=== PATIENT | male | born 1940 | race Caucasian/White ===

== ENCOUNTER → 2016-03-26 | Outpatient (CLI) | payer MEDICARE, OTHER ==
[~2016-03-26] MED LIST: ALLP300T PO; ASP81TEC; ASPI-983 PO; CALC-250 PO; CLOP75TA; COLE3.75 PO; CYCL10TA9 PO; DEXL60CA PO; FAMO20TA42; HYDR-229 PO; HYDR-3720 PO; KRIL500C PO; LISI20TA; LOPE2CAP PO; MTP25TSR; MULT-1030 PO; NITR0.4T SL; OMEP20CA12 PO; PNT40TEC; PNT40TEC PO; PRAV40TA; PROP10DR3 OU; ROSU5TAB PO; TAMS0.4C98 PO; VITAMIN D PO
--- NOTE | 2016-03-27 11:21 | ECHOCARDIOGRAPHY REPORT ---
PROCEDURE PHYSICIAN: EVANGELIST AMAYA DATE OF PROCEDURE: 03/26/2016 TWO DIMENSIONAL ECHOCARDIOGRAM REPORT PRIMARY PHYSICIAN: OTHER PHYSICIAN: REFERRING PHYSICIAN: Dr. Giron ORDERING PHYSICIAN: INDICATION FOR THE PROCEDURE: Coronary artery disease, chest pain. MEASUREMENTS DERIVED VALUES LV DIAMETER (LAX) NORMALS NORMALS Diastolic 4.5 (3.6-5.2) Eject. Fract. 60% (60%+/-6%) Systolic (2.3-3.9) Diastolic Vol. % Shortening (0.22-0.42) Systolic Vol. Aortic Root IVS THICKNESS Diastolic 0.8 (0.6-1.1) LVPW THICKNESS Diastolic 1. (0.6-1.1) LA DIAMETER Systolic 4.5 (2.1-3.7) FINDINGS: 1. Technical quality is good. 2. The left ventricle is normal in size with normal systolic function. Estimated ejection fraction 60%. 3. The left atrium is dilated. No clot or thrombus were seen within the left atrium. 4. The right atrium and right ventricle are normal in size. No clot or thrombus were seen within the right side. 5. Mitral valve is normal in morphology with mild mitral regurgitation noted by color Doppler flow. No mitral valve prolapse. No mitral valve stenosis. 6. Aortic valve is trileaflet with normal opening and closing pattern. No significant aortic stenosis or regurgitation was seen. 7. Tricuspid valve is normal in morphology with mild tricuspid regurgitation noted by color Doppler flow. Doppler across tricuspid valve estimated pulmonary artery pressure of 24+ right atrial pressure. 8. Pulmonic valve is functioning normally. 9. No pericardial effusion. CONCLUSION: 1. Normal left ventricular size and systolic function. Estimated ejection fraction 60%. 2. Left atrial dilatation. 3. Mild mitral and tricuspid regurgitation. 4. Estimated pulmonary artery pressure of 30 mmHg. Job ID: [id number] Dictated Date: 03/27/2016 10:36:51 [place] Date: 03/27/2016 11:16:56 / [facility]
== END ==
LOC: CARD 09:57
PROVIDERS: ATTEND Physician Assistant
DX: I25.10 Atherosclerotic heart disease of native coronary artery without angina pectoris (principal); R07.89 Other chest pain; I10 Essential (primary) hypertension; R06.02 Shortness of breath
CPT/HCPCS: 93306

== ENCOUNTER → 2016-04-08 | Outpatient (CLI) | payer MEDICARE, OTHER ==
[~2016-04-08] MED LIST changes: +CATHETER FLUSH 10 ML SYR IV PRN; +REGADENOSON 0.4 MG/5 ML SYR (LEXISCAN) IV ONE
[2016-04-08 09:02] VITALS: BP 138/74
[2016-04-08 09:07] VITALS: BP 158/83
[2016-04-08 10:45] LABS: ALBUMIN 4.1 G/DL (3.2-4.5); BILIRUBIN,TOTAL 0.5 MG/DL (0.1-1.0); CALCIUM 9.1 MG/DL (8.5-10.1); CREATININE SERUM 1.23 MG/DL (0.60-1.30); POTASSIUM 3.7 MMOL/L (3.6-5.0); TOTAL PROTEIN 6.5 G/DL (6.4-8.2)
--- NOTE | 2016-04-08 11:38 | STRESS TEST ---
PROCEDURE PHYSICIAN: EVANGELIST AMAYA LEXISCAN MYOVIEW STRESS TEST REPORT DATE OF PROCEDURE: 04/08/2016 REFERRING PHYSICIAN: Dr. Adam Giron. INDICATION FOR THE PROCEDURE: Coronary artery disease, chest pain. Baseline heart rate is 71, baseline blood pressure: 138/74. Baseline EKG: Sinus rhythm with no ischemic changes. SUMMARY: The patient was injected with 10.94 mCi of technetium 99 Myoview and the resting images were obtained. Then the patient received 0.4 mg of Lexiscan followed by 29.9 mCi of technetium 99 Myoview. Throughout the test, there were no EKG changes. The resting and stress images were reviewed and compared in the short axis, horizontal long axis, and vertical long axis views. Review of the images showed diaphragmatic attenuation affecting the quality of the images. There is decreased uptake at the mid to apical inferolateral wall, with mild reversibility. SSS is 4, SDS 2, TID value 1.24. On the gated images, the left ventricle appeared to be normal size with normal contractility. Calculated ejection fraction 64%. CONCLUSION: 1. The patient tolerated Lexiscan well. 2. Diaphragmatic attenuation with typical male pattern. Questionable mild ischemia at the inferolateral wall. 3. Transient ischemic dilatation with TID value 1.24. 4. Normal left ventricular size with normal contractility. Calculated ejection fraction 64%. Job ID: [id number] Dictated Date: 04/08/2016 11:04:29 [place] Date: 04/08/2016 11:33:24 / moses
== END ==
LOC: CARD 07:32
PROVIDERS: ATTEND Physician Assistant
DX: I25.10 Atherosclerotic heart disease of native coronary artery without angina pectoris (principal); R07.89 Other chest pain; I10 Essential (primary) hypertension; R06.02 Shortness of breath
CPT/HCPCS: 36415; 78452; 80053; 80061; 93017

== ENCOUNTER 2016-04-17 10:56 | Day surgery (SDC) | payer MEDICARE, OTHER ==
[~2016-04-17] VITALS: Ht 165.1 cm; Wt 103.4 kg
[2016-04-17] VITALS (7 sets, daily range): BP systolic 112–151; BP diastolic 68–92
[~2016-04-17 10:56] MED LIST changes: -ASPI-983 PO; -CATHETER FLUSH 10 ML SYR IV PRN; -DEXL60CA PO; -MULT-1030 PO; -NITR0.4T SL; -PROP10DR3 OU; -REGADENOSON 0.4 MG/5 ML SYR (LEXISCAN) IV ONE; -TAMS0.4C98 PO; -VITAMIN D PO
[2016-04-17] MEDS ORDERED: HEParin (CATH LAB) 2,000 ML IV ONE (11:25)
[2016-04-17] MEDS ORDERED: LIDOCAINE 1% INJ 20 ML (XYLOCAINE) VIAL ONE (11:25)
[2016-04-17] MEDS ORDERED: NS IV 1000 ML 1,000 ML ONE (11:25)
[2016-04-17] MEDS ORDERED: NS IV 1000 ML 1,000 ML IV SCH ×2 (11:33→16:46)
[2016-04-17 11:59] LABS: MEAN PLATELET VOLUME 9.2 FL (7.4-10.4); RED BLOOD COUNT 4.44 10^6/uL (4.35-5.85); RED CELL DISTRIBUTION WIDTH 13.5 % (10.0-14.5); WHITE BLOOD COUNT 9.4 10^3/uL (4.3-11.0)
[2016-04-17 12:09] LABS: PROTHROMBIN TIME PATIENT 13.3 SEC (12.2-14.7)
[2016-04-17 12:20] LABS: ALBUMIN 4.6 G/DL (3.2-4.5); BILIRUBIN,TOTAL 0.7 MG/DL (0.1-1.0); CALCIUM 9.3 MG/DL (8.5-10.1); CREATININE SERUM 1.19 MG/DL (0.60-1.30); POTASSIUM 4.2 MMOL/L (3.6-5.0); TOTAL PROTEIN 7.1 G/DL (6.4-8.2)
--- NOTE | 2016-04-17 12:37 | Diagnostic Imaging Report ---
Portable upright radiograph of the chest. INDICATION: Hypertension. Abnormal stress test. Shortness of breath. FINDINGS: There is minimal scarring in the left lung base similar to 02/10/16 exam. The right lung is clear. The heart size is normal. No effusion or pneumothorax. The mediastinum and jess appear unremarkable. IMPRESSION: No acute process. Dictated by: Dictated on workstation # [id number]
[2016-04-17] MEDS ORDERED: VITAMIN D PO (12:47)
[2016-04-17] MEDS ORDERED: DEXL60CA PO (12:47)
[2016-04-17] MEDS ORDERED: NITR0.4T SL (12:47)
[2016-04-17] MEDS ORDERED: PROP10DR3 OU (12:47)
[2016-04-17] MEDS ORDERED: ASPI-983 PO (12:47)
[2016-04-17] MEDS ORDERED: MULT-1030 PO (12:47)
[2016-04-17 14:13] LABS: BILIRUBIN,URINE NEGATIVE (NEGATIVE); KETONES,URINE NEGATIVE (NEGATIVE); LEUKOCYTE ESTERASE ,URINE NEGATIVE (NEGATIVE); NITRITE,URINE NEGATIVE (NEGATIVE); PH,URINE 6 (5-9); PROTEIN,URINE NEGATIVE (NEGATIVE); UROBILINOGEN,URINE NORMAL (NORMAL)
[2016-04-17 14:23] LABS: SQUAMOUS EPITHELIAL CELL,UR RARE /HPF
[2016-04-17] MEDS ORDERED: MIDAZOLAM 5 MG/5 ML (VERSED) VIAL ONE (16:05)
[2016-04-17] MEDS ORDERED: diphenhydrAMINE 50 MG/ML INJ (BENADRYL) ONE (16:05)
[2016-04-17] MEDS ORDERED: fentaNYL INJECTION 100 MCG/2 ML AMP ONE (16:05)
[2016-04-17] MEDS ORDERED: methylPREDNISolone 125 MG (Solu-MEDROL) VIAL ONE (16:06)
[2016-04-17] MEDS ORDERED: ENALAPRILAT 2.5 MG/2 ML (VASOTEC) VIAL IV ONE (16:33)
[2016-04-17] MEDS ORDERED: meTOprolol 5 MG/5 ML (LOPRESSOR) VIAL ONE (16:33)
--- NOTE | 2016-04-17 16:44 | Cardiac Procedure Note-CS/ASA ---
Pre-Procedure Note Pre-Op Procedure Note H&P Reviewed The H&P was reviewed, patient examined and no changes noted. Date H&P Reviewed: Apr 17, 2016 Time H&P Reviewed: 16:43 Conscious Sedation Pre-Proced Time Reviewed: 16:43 ASA Class: 3 Airway Mallampati Classification: ([place] appropriate class) I. II. III, IV Lungs Heart ASA score ASA 1: a normal healthy patient ASA 2: a patient with a mild systemic disease (mid diabetes, controlled hypertension, obesity x ASA 3: a patient with a severe systemic disease that limits activity (angina , COPD, prior Myocardial infarction) ASA 4: a patient with an incapacitating disease that is a constant threat to life (CHF, renal failure) ASA 5: a moribund patient not expected to survive 24 hrs. (ruptured aneurysm) ASA 6: a declared brain patient whose organs are being harvested. For emergent operations, add the letter E after the classification Grade 3 Sedation Plan: Analgesia, Amnesia, Plan communicated to team members, Discussed options with patient/fam, Discussed risks with patient/fam Note The patient is an appropriate candidate to undergo the planned procedure, sedation, and anesthesia. The patient immediately re-assessed prior to indication. EVANGELIST AMAYA MD Apr 17, 2016 16:44
--- NOTE | 2016-04-17 16:50 | Discharge Inst-Post CATH ---
Discharge Inst-CATH Post Cardiac Cath D/C Inst Follow Up/Plan Appointment with Dr Ovalle's office in 2-4 weeks CARDIAC CATH DISCHARGE INSTRUCTIONS *Hold Metformin for 48 hours post heart cath. ACTIVITY * Go Home directly and rest. * Limit activity of the leg (or wrist if it was used) for 7 days including aerobics, swimming, jogging, bicycling, etc. * Restrict stair-climbing for 7 days if possible, if not, climb up with your non -cath leg, then bring together on the same step. * Avoid lifting, pushing, pulling or excessive movement of the affected extremity for 7 days. * Customary sexual activity may be resumed after 2 days-use caution not to use a position that strains or causes pain to the affected extremity. * No driving for 24 hours. * NO SMOKING. * Avoid straining for bowel movements for 7 days. * Gentle walking on level ground is allowed. * Returning to work will depend on the type of procedure and the results. Your doctor will discuss this with you. CALL YOUR DOCTOR FOR ANY OF THE FOLLOWING: *If bleeding from the puncture site occurs- Apply gentle pressure to site with clean cloth and call your doctor or EMS. * If a knot or lump forms under the skin, increases in size, or causes pain. * If bruising appears to be worsening or moving further down your leg instead of disappearing. * Temperature above 101 F. CARE OF YOUR GROIN INCISION; * Bruising or purple discoloration of the skin near the puncture site is common. * You may shower only, no bathtub bathing for 5 days. Be careful to avoid slipping as your leg may feel stiff. * If a closure device was used on your femoral artery, please see the attached guide regarding care of the device and your leg. * REMOVE the dressing from your groin the next day after your procedure in the shower. CARE OF YOUR WRIST INCISION; * Bruising or purple discoloration of the skin near the puncture site is common. * You may shower. * DO NOT submerge wrist. * Remove dressing in 24 hours. EVANGELIST OVALLE MD Apr 17, 2016 16:50
[2016-04-17] MEDS ORDERED: PATIENT MAY USE OWN MEDS, ALL PO SCH (17:00)
--- NOTE | 2016-04-18 13:46 | DISCHARGE SUMMARY ---
PROCEDURE PHYSICIAN: EVANGELIST AMAYA DATE OF PROCEDURE: 04/17/2016 REFERRING PHYSICIAN: Dr. Giron BRIEF HISTORY: Mr. Antoine is a 76-year-old gentleman with extensive cardiac history multiple interventions in the past. He had an abnormal stress test, scheduled for cardiac catheterization. PROCEDURE NOTE: After explaining the procedure to the patient, all pros and cons were explained. All questions were answered. The patient signed a consent, then he was placed on the cardiac catheterization laboratory. The right groin was prepped in a sterile fashion. Local anesthesia applied to right groin. 6-Maltese sheath was placed in the right femoral artery. A combination of right and left Mychal catheter were used to access the right and left coronary system. Multiple views were obtained. Pigtail catheter advanced to the left ventricular cavity. Left ventriculogram was done. Pullback LV to aorta was done. The aortic arch angiogram was done. At the end of the procedure, sheath was removed. Mynx device deployed. Hemostasis achieved. The patient required 5 mg of IV Lopressor and 5 mg IV enalapril to control his blood pressure. FINDINGS: HEMODYNAMICS: LV pressure 162/19, end-diastolic pressure of 19, aortic pressure 147/72, mean of 104. ANATOMY: 1. Left main coronary artery is bifurcating to left anterior descending and left circumflex artery with no obstructive disease. 2. Left anterior descending artery has multiple stents at the proximal mid and distal portion, 40 to 50% stenosis distally, nonobstructive disease. 3. Left circumflex artery is moderate in size. Second obtuse marginal branch has 50% stenosis. 4. Ramus intermedius/high obtuse marginal branch has patent stent proximally. 5. Right coronary artery is moderate in size with patent stent with mild disease distally, nonobstructive disease. 6. Left ventriculogram was done in the right anterior oblique position. The left ventricle is normal in size with normal contractility. Systolic function appeared to be normal. Estimated ejection fraction 60%. CONCLUSION: 1. Patent stents in the LAD, proximal mid and distal, proximal ramus intermedius/high obtuse marginal branch and right coronary artery with mild disease distally, nonobstructive disease. 2. 50% stenosis at the second obtuse marginal branch, nonobstructive disease. 3. Normal left ventricular size and systolic function. Estimated ejection fraction 60%. 4. Aortic arch angiogram showed mild hypertensive changes. Origin of the right innominate artery is normal, followed by a left subclavian artery and on the most lateral portion is a left carotid artery which is not causing any obstructive disease. DISCUSSION AND RECOMMENDATION: Medical therapy is recommended. No intervention is needed. FINAL DIAGNOSIS: 1. Coronary artery disease. 2. Hypertension. 3. Hyperlipidemia. 4. Chest pain, nonspecific etiology. Job ID: [id number] Dictated Date: 04/17/2016 16:49:06 Forepart Laster Date: 04/18/2016 13:43:09/moses
== END 2016-04-17 21:47 | disposition home or self-care (01) ==
LOC: CATH 10:56 → ICU 17:08 → CATH 21:47
PROVIDERS: ATTEND Internal Medicine Cardiovascular Disease
DX: R94.39 Abnormal result of other cardiovascular function study (principal); I25.10 Atherosclerotic heart disease of native coronary artery without angina pectoris; I10 Essential (primary) hypertension; E78.5 Hyperlipidemia, unspecified; R07.89 Other chest pain; G47.33 Obstructive sleep apnea (adult) (pediatric); Z87.891 Personal history of nicotine dependence; Z95.5 Presence of coronary angioplasty implant and graft; Z79.899 Other long term (current) drug therapy
CPT/HCPCS: 36221; 36415; 71010; 80053; 80061; 81000; 85027; 85610; 85730; 87081; 93005; 93458

== ENCOUNTER 2016-05-25 18:35 | Emergency (ER) | payer MEDICARE, OTHER ==
[~2016-05-25] VITALS: Ht 165.1 cm; Wt 99.8 kg
[~2016-05-25 18:35] MED LIST changes: +ASPI-983 PO; +DEXL60CA PO; +MULT-1030 PO; +NITR0.4T SL; +PROP10DR3 OU; +VITAMIN D PO
--- NOTE | 2016-05-25 18:41 | ED Abdominal Pain ---
General Stated Complaint: FLANK PAIN Source of Information: Patient, EMS Exam Limitations: No Limitations History of Present Illness Time Seen By Provider: 18:39 Initial Comments To ER per EMS from home with reports of right flank pain. The pain began in the right flank and began radiating around to the umbilicus during transport here. He does have a history of kidney stones. He also had a laparoscopic cholecystectomy in the remote past and has been having a cough lately and is concerned that the cough and sneezing may have somehow injured his abdomen. He states that the pain does occasionally radiate into his groin. No fevers or chills. Intermittent nausea over the past few days. Timing/Duration: 1-2 Days Severity/Quality: Moderate Location: Flank Activities at Onset: None Associated Symptoms: No Fever/Chills, Nausea/Vomiting Allergies and Home Medications Allergies Coded Allergies: Penicillins (Verified Allergy, Unknown, 01/08/12) ezetimibe (Verified Allergy, Unknown, 01/08/12) iodine (Verified Allergy, Unknown, 01/08/12) simvastatin (Verified Allergy, Unknown, 01/08/12) Home Medications 1 CAP PO DAILY (Reported) Allopurinol 300 Mg Tab 300 MG PO DAILY (Reported) Aspirin 81 Mg Tablet.dr 81 MG PO DAILY (Reported) Dexlansoprazole 60 Mg Cap.dr.bp 60 MG PO DAILY PRN PRN INDIGESTION (Reported) Multivits,Ca,Min/Iron/FA/Lycop 1 Each Tablet 1 TAB PO DAILY (Reported) Nitroglycerin 0.4 Mg Tab.subl 0.4 MG SL DAILY PRN PRN PRN CHEST PAIN (Reported) Propylene Glycol 10 Ml Drops 1 DROP OU DAILY PRN PRN DRY EYES (Reported) Rosuvastatin Calcium 5 Mg Tablet 5 MG PO DAILY (Reported) LAST FILLED 01/01/16 #90 Tamsulosin HCl 0.4 Mg Cap #10 0.4 MG PO DAILY Prescribed by: ALYSON GONZALEZ on 05/25/162004 Review of Systems Constitutional: see HPINo chills, No fever EENTM: No Symptoms Reported Respiratory: See HPI Cough Cardiovascular: No Symptoms Reported Gastrointestinal: See HPI Abdominal Pain Genitourinary: No Symptoms Reported Musculoskeletal: no symptoms reported Skin: no symptoms reported Psychiatric/Neurological: No Symptoms Reported Endocrine: No Symptoms Reported Hematologic/Lymphatic: No Symptoms Reported Past Qvzwwll-Frocvf-Jfikrw Hx Patient Social History Recent Hopitalizations: No Immunizations Up To Date Date of Pneumonia Vaccine: Dec 18, 2015 Date of Influenza Vaccine: Dec 18, 2015 Seasonal Allergies Seasonal Allergies: No Surgeries HX Surgeries: Yes Surgeries: Gallbladder, Tonsillectomy Respiratory Hx Respiratory Disorders: Yes Respiratory Disorders: Sleep Apnea Cardiovascular Hx Cardiac Disorders: Yes Cardiac Disorders: High Cholesterol, Hypertension Neurological Hx Neurological Disorders: No Reproductive System Hx Reproductive Disorders: No Sexually Transmitted Disease: No HIV/AIDS: No Genitourinary Hx Genitourinary Disorders: Yes Genitourinary Disorders: Kidney Stones Gastrointestinal Hx Gastrointestinal Disorders: Yes Gastrointestinal Disorders: Gastroesophageal Reflux Musculoskeletal Hx Musculoskeletal Disorders: No Endocrine Hx Endocrine Disorders: No HEENT HX ENT Disorders: No Cancer Hx Cancer: No Psychosocial Hx Psychiatric Problems: No Integumentary HX Skin/Integumentary Disorder: No Blood Transfusions Hx Blood Disorders: No Adverse Reaction to a Blood Tr: No Family Medical History Significant Family History: No Pertinent Family Hx Physical Exam Vital Signs VS - Last 72 Hours, by Label 05/25/16 18:35 Temp 99.7 Pulse 99 Resp 16 B/P 165/92 Pulse Ox 97 O2 Delivery Room Air Capillary Refill : General Appearance: WD/WN no apparent distress HEENT: PERRL/EOMI normal ENT inspection Neck: non-tender full range of motion Respiratory: normal breath sounds no respiratory distress no accessory muscle use Cardiovascular: regular rate, rhythm no murmur Gastrointestinal: normal bowel sounds non tender soft Neurologic/Psychiatric: alert normal mood/affect oriented x 3 Skin: normal color warm/dry Progress/Results/Core Measures Results/Orders Lab Results Laboratory Tests Test 05/25/16 19:11 05/25/16 19:30 Range/Units Alanine Aminotransferase (ALT/SGPT) 35 0-55 U/L Albumin 4.2 3.2-4.5 G/DL Alkaline Phosphatase 69 40-136 U/L Anion Gap 12 5-14 MMOL/L Aspartate Amino Transf (AST/SGOT) 35 H 5-34 U/L BUN/Creatinine Ratio 13 Basophils # (Auto) 0.0 0.0-0.1 10^3/uL Basophils (%) (Auto) 0 0-10 % Blood Urea Nitrogen 19 H 7-18 MG/DL Calcium Level 9.5 8.5-10.1 MG/DL Carbon Dioxide Level 21 21-32 MMOL/L Chloride Level 107 98-107 MMOL/L Creatinine 1.48 H 0.60-1.30 MG/DL Eosinophils # (Auto) 0.1 0.0-0.3 10^3/uL Eosinophils (%) (Auto) 1 0-10 % Estimat Glomerular Filtration Rate 46 Glucose Level 108 H 70-105 MG/DL Hematocrit 40 40-54 % Hemoglobin 13.9 13.3-17.7 G/DL Lymphocytes # (Auto) 2.0 1.0-4.0 X 10^3 Lymphocytes (%) (Auto) 23 12-44 % Mean Corpuscular Hemoglobin 32 25-34 PG Mean Corpuscular Hemoglobin Concent 35 32-36 G/DL Mean Corpuscular Volume 92 80-99 FL Mean Platelet Volume 9.3 7.4-10.4 FL Monocytes # (Auto) 0.8 0.0-1.0 X 10^3 Monocytes (%) (Auto) 10 0-12 % Neutrophils # (Auto) 5.7 1.8-7.8 X 10^3 Neutrophils (%) (Auto) 66 42-75 % Platelet Count 251 130-400 10^3/uL Potassium Level 4.1 3.6-5.0 MMOL/L Red Blood Count 4.35 4.35-5.85 10^6/uL Red Cell Distribution Width 13.4 10.0-14.5 % Sodium Level 140 135-145 MMOL/L Total Bilirubin 0.3 0.1-1.0 MG/DL Total Protein 6.7 6.4-8.2 G/DL White Blood Count 8.6 4.3-11.0 10^3/uL Urine Bacteria TRACE /HPF Urine Bilirubin NEGATIVE NEGATIVE Urine Casts PRESENT /LPF Urine Clarity SLIGHTLY CLOUDY Urine Color YELLOW Urine Crystals NONE /LPF Urine Culture Indicated NO Urine Glucose (UA) NEGATIVE NEGATIVE Urine Hyaline Casts RARE /LPF Urine Ketones NEGATIVE NEGATIVE Urine Leukocyte Esterase NEGATIVE NEGATIVE Urine Mucus NEGATIVE /LPF Urine Nitrite NEGATIVE NEGATIVE Urine Protein NEGATIVE NEGATIVE Urine RBC >100 H /HPF Urine RBC (Auto) 5+ H NEGATIVE Urine Specific Braman 1.025 H 1.016-1.022 Urine Squamous Epithelial Cells 2-5 /HPF Urine Urobilinogen NORMAL NORMAL MG/DL Urine WBC NONE /HPF Urine pH 5 5-9 My Orders Orders-ALYSON GONZALEZ [facility] Cbc With Automated Diff (05/25/16 18:37) Comprehensive Metabolic Panel (3/11/17 18:37) Ua Culture If Indicated (05/25/16 18:37) Saline Lock/Iv-Start (05/25/16 18:37) Ct Abd/Pelvis Wo(Kidney Stone) (05/25/16 18:37) Ketorolac Injection (Toradol Injection) (05/25/16 18:45) Chest Pa/Lat (2 View) (05/25/16 18:41) Abdomen/Kub 1view (05/25/16 19:32) Hydrocodone/Apap 5/325 Tablet (Lortab 5 (05/25/16 20:00) Ns Iv 500 Ml (Sodium Chloride 0.9%) (05/25/16 20:15) Medications Given in ED Current Medications Medications Dose Ordered Sig/Angy Route Start Time Stop Time Status Last Admin Dose Admin Acetaminophen/ Hydrocodone Bitart 1 tab ONCE ONCE PO 05/25/16 20:00 05/25/16 20:01 DC 05/25/16 20:01 1 TAB Ketorolac Tromethamine 30 mg ONCE ONCE IVP 05/25/16 18:45 05/25/16 18:46 DC 05/25/16 19:12 30 MG Vital Signs/I&O Vital Sign - Last 12Hours 05/25/16 18:35 Temp 99.7 Pulse 99 Resp 16 B/P 165/92 Pulse Ox 97 O2 Delivery Room Air Diagnostic Imaging Diagonstic Imaging: CT Comments NAME: MONICA JAMES [facility] REC#: [id number] PT STATUS: REG ER : 1940 PHYSICIAN: ALYSON GONZALEZ [facility] ADMIT DATE: 05/25/16/ER Draft Date of Exam:05/25/16 CT ABD/PELVIS WO(KIDNEY STONE) Procedure: CT urinary tract, rule out kidney stone. Technique: Multiple contiguous axial images were obtained through the abdomen and pelvis without the use of intravenous contrast. Indication: Intermittent right-sided abdominal pain for 10 days. Comparison: 03/12/2012. Discussion: The visualized lung bases are well-aerated. Normal heart size. No pleural or pericardial fluid. The gallbladder is surgically absent. The liver, stomach, spleen and adrenal glands are unremarkable. Fatty atrophy of the pancreas is stable. 3 mm partially obstructing stone is noted within the mid right ureter. There is mild right hydronephrosis. Mild right perinephric stranding. Additional nonobstructing bilateral renal calculi are noted measuring up to 3 mm. No hydronephrosis on the left. Colonic diverticulosis with no secondary evidence for diverticulitis. No obstruction, pneumatosis or pneumoperitoneum. The appendix is normal. No ascites or pathologically enlarged lymph node is identified. Operative changes are again noted within the left hip. No acute osseous abnormality identified. Degenerative changes are present throughout the lumbar spine. Impression: 1. A 3 mm partially obstructing stone is within the mid right ureter contributing to mild right hydronephrosis. 2. Additional punctate nonobstructing bilateral renal calculi. 3. Diverticulosis. Dictated on workstation # [id number] Dict: 05/25/161937 Trans: 05/25/161941 [facility] [id number] Interpreted by: CALEB MARIE MD Electronically signed by: Departure Communication Progress Notes Patient states that he has hydrocodone at home already. Impression Impression: Primary Impression: Right ureteral stone Additional Impression: Acute renal insufficiency Disposition: 01 HOME, SELF-CARE Condition: Stable Departure-Patient Inst. Decision time for Depature: 19:32 Referrals: RYAN LEWIS MD (PCP/Family) Primary Care Physician Patient Instructions: Kidney Stones (DC) Add. Discharge Instructions: 1. Drink plenty of fluids 2. Medication as directed 3. Follow-up with your doctor next week 4. Do not add Motrin or Aleve for naproxen to these medications as these may worsen your kidney function. Scripts Tamsulosin HCl (Flomax)0.4 Mg Cap0.4 Mg PO DAILY #10 CAP Prov:ALYSON GONZALEZ APRN 05/25/16 Copy Copies To 1: RYAN LEWIS MD, PETER J APRN May 25, 2016 18:41
--- OUTSIDE RECORDS SUMMARY | 2016-05-25 18:41 | XMS REPORT | Continuity of Care Document ---
Author Author [facility] Organization [facility] Address Unknown Phone Unavailable Allergies Active Description Code Type Severity Reaction Onset Reported/Identified Relationship to Patient Clinical Status Yes ezetimibe [id number] Drug Allergy Unknown N/A 08/11/2015 Yes iodine [id number] Drug Allergy Unknown N/A 08/11/2015 Yes Penicillins [id number] Drug Allergy Unknown N/A 08/11/2015 Yes simvastatin [id number] Drug Allergy Unknown N/A 08/11/2015 Medications Problems Date Dx Coded Attending Type Code Diagnosis Diagnosed By 10/05/2014 ABIMBOLA ANTONIO Ot 272.4 10/05/2014 ABIMBOLA ANTONIO Ot 278.00 10/05/2014 ABIMBOLA ANTONIO Ot 401.9 10/05/2014 ABIMBOLA ANTONIO Ot 414.9 10/31/2014 ABIMBOLA ANTONIO Ot 272.4 10/31/2014 ABIMBOLA ANTONIO Ot 278.00 10/31/2014 ABIMBOLA ANTONIO Ot 401.9 10/31/2014 ABIMBOLA ANTONIO Ot 414.9 11/23/2014 Ot 272.4 11/23/2014 Ot 278.00 11/23/2014 Ot 401.9 11/23/2014 Ot 414.00 11/23/2014 Ot V85.41 11/23/2014 TANVIR DO, MP F Ot 715.91 11/23/2014 TANVIR DO MP F Ot 728.2 11/23/2014 TANVIR DO, MP F Ot 840.4 11/23/2014 TANVIR DO MP F Ot E000.8 11/23/2014 TANVIR DO MP F Ot E928.9 02/13/2015 TANVIR DO MP F Ot S46.011D 02/13/2015 TANVIR DO, MP Chanel Ot X39.8XXD 02/13/2015 TANVIR DO, MP F Ot Y92.019 02/13/2015 TANVIR DO, MP F Ot Y93.E6 02/13/2015 TANVIR DO, MP F Ot Y99.8 02/21/2015 TANVIR DO, MP Chanel Ot S46.011D 02/21/2015 TANVIR DO, MP Chanel Ot X39.8XXD 02/21/2015 TANVIR DO, MP Chanel Ot Y92.019 02/21/2015 TANVIR DO, MP Chanel Ot Y93.E6 02/21/2015 TANVIR DO, MP Chanel Ot Y99.8 08/11/2015 RYAN LEWIS MD Ot 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 WITHOUT 08/11/2015 RYAN LEWIS MD Ot Z01.818 ENCOUNTER FOR OTHER PREPROCEDURAL EXAMIN 08/11/2015 RYAN LEWIS MD Ot K20.8 OTHER ESOPHAGITIS 08/11/2015 RYAN LEWIS MD Ot K22.8 OTHER SPECIFIED DISEASES OF ESOPHAGUS 08/11/2015 RYAN LEWIS MD Ot K44.9 DIAPHRAGMATIC HERNIA WITHOUT OBSTRUCTION 08/16/2015 RYAN LEWIS MD Ot K20.8 OTHER ESOPHAGITIS 08/16/2015 RYAN LEWIS MD Ot K22.8 OTHER SPECIFIED DISEASES OF ESOPHAGUS 08/16/2015 RYAN LEWIS MD Ot K44.9 DIAPHRAGMATIC HERNIA WITHOUT OBSTRUCTION 09/01/2015 RYAN LEWIS MD Ot K20.8 OTHER ESOPHAGITIS 09/01/2015 RYAN LEWIS MD Ot K22.8 OTHER SPECIFIED DISEASES OF ESOPHAGUS 09/01/2015 RYAN LEWIS MD Ot K44.9 DIAPHRAGMATIC HERNIA WITHOUT OBSTRUCTION 09/08/2015 RYAN LEWIS MD Ot K20.8 OTHER ESOPHAGITIS 09/08/2015 RYAN LEWIS MD Ot K22.8 OTHER SPECIFIED DISEASES OF ESOPHAGUS 09/08/2015 RYAN LEWIS MD Ot K44.9 DIAPHRAGMATIC HERNIA WITHOUT OBSTRUCTION 02/10/2016 TOY YEUNG MD Ot I10 ESSENTIAL (PRIMARY) HYPERTENSION 02/10/2016 TOY YEUNG MD Ot M54.5 LOW BACK PAIN 02/10/2016 TOY YEUNG MD Ot M54.6 PAIN IN THORACIC SPINE 02/10/2016 TYO YEUNG MD Ot S39.012A STRAIN OF MUSCLE, FASCIA AND TENDON OF L 02/10/2016 TOY YEUNG MD Ot X50.0XXA OVEREXERTION FROM STRENUOUS MOVEMENT OR 02/10/2016 TOY YEUNG MD Ot Y92.[address] OR NOT APPLICABLE 02/10/2016 TOY YEUNG MD Ot Y93.9 ACTIVITY, UNSPECIFIED 02/10/2016 TOY YEUNG MD Ot Y99.8 OTHER EXTERNAL CAUSE STATUS 02/12/2016 TOY YEUNG MD Ot I10 ESSENTIAL (PRIMARY) HYPERTENSION 02/12/2016 TOY YEUNG MD Ot M54.5 LOW BACK PAIN 02/12/2016 TOY YEUNG MD, Ot M54.6 PAIN IN THORACIC SPINE 02/12/2016 TOY YEUNG MD Ot S39.012A STRAIN OF MUSCLE, FASCIA AND TENDON OF L 02/12/2016 TOY YEUNG MD Ot X50.0XXA OVEREXERTION FROM STRENUOUS MOVEMENT OR 02/12/2016 TOY YEUNG MD Ot Y92.[address] OR NOT APPLICABLE 02/12/2016 TOY YEUNG MD Ot Y93.9 ACTIVITY, UNSPECIFIED 02/12/2016 TOY YEUNG MD Ot Y99.8 OTHER EXTERNAL CAUSE STATUS 03/27/2016 ABIMBOLA ANTONIO Ot I10 ESSENTIAL (PRIMARY) HYPERTENSION 03/27/2016 ABIMBOLA ANTONIO Ot I25.10 ATHSCL HEART DISEASE OF [place] CORONARY 03/27/2016 ABIMBOLA ANTONIO Ot R06.02 SHORTNESS OF BREATH 03/27/2016 ABIMBOLA ANTONIO Ot R07.89 OTHER CHEST PAIN 04/08/2016 ABIMBOLA ANTONIO Ot I10 ESSENTIAL (PRIMARY) HYPERTENSION 04/08/2016 ABIMBOLA ANTONIO Ot I25.10 ATHSCL HEART DISEASE OF [place] CORONARY 04/08/2016 ABIMBOLA ANTONIO Ot R06.02 SHORTNESS OF BREATH 04/08/2016 ABIMBOLA ANTONIO Ot R07.89 OTHER CHEST PAIN 04/18/2016 ABIMBOLA ANTONIO Ot I10 ESSENTIAL (PRIMARY) HYPERTENSION 04/18/2016 ABIMBOLA ANTONIO Ot I25.10 ATHSCL HEART DISEASE OF [place] CORONARY 04/18/2016 ABIMBOLA ANTONIO Ot R06.02 SHORTNESS OF BREATH 04/18/2016 ABIMBOLA ANTONIO Ot R07.89 OTHER CHEST PAIN 04/23/2016 ABIMBOLA ANTONIO Ot I10 ESSENTIAL (PRIMARY) HYPERTENSION 04/23/2016 ABIMBOLA ANTONIO Ot I25.10 ATHSCL HEART DISEASE OF [place] CORONARY 04/23/2016 ABIMBOLA ANTONIO Ot R06.02 SHORTNESS OF BREATH 04/23/2016 ABIMBOLA ANTONIO Ot R07.89 OTHER CHEST PAIN 04/25/2016 EVANGELIST AMAYA MD Ot E78.5 HYPERLIPIDEMIA, UNSPECIFIED 04/25/2016 EVANGELIST AMAYA MD Ot G47.33 OBSTRUCTIVE SLEEP APNEA (ADULT) (PEDIATR 04/25/2016 EVANGELIST AMAYA MD Ot I10 ESSENTIAL (PRIMARY) HYPERTENSION 04/25/2016 EVANGELIST AMAYA MD Ot I25.10 ATHSCL HEART DISEASE OF [place] CORONARY 04/25/2016 EVANGELIST AMAYA MD Ot R07.89 OTHER CHEST PAIN 04/25/2016 EVANGELIST AMAYA MD Ot R94.39 ABNORMAL RESULT OF OTHER CARDIOVASCULAR 04/25/2016 EVANGELIST AMAYA MD Ot Z79.899 OTHER RETIREMENT (CURRENT) DRUG THERAPY 04/25/2016 EVANGELIST AMAYA MD Ot Z87.891 PERSONAL HISTORY OF NICOTINE DEPENDENCE 04/25/2016 EVANGELIST AMAYA MD Ot Z95.5 PRESENCE OF CORONARY ANGIOPLASTY IMPLANT 05/02/2016 ABIMBOLA ANTONIO Ot I10 ESSENTIAL (PRIMARY) HYPERTENSION 05/02/2016 ABIMBOLA ANTONIO Ot I25.10 ATHSCL HEART DISEASE OF [place] CORONARY 05/02/2016 ABIMBOLA ANTONIO Ot R06.02 SHORTNESS OF BREATH 05/02/2016 ABIMBOLA ANTONIO Ot R07.89 OTHER CHEST PAIN 05/07/2016 ABIMBOLA ANTONIO Ot I10 ESSENTIAL (PRIMARY) HYPERTENSION 05/07/2016 ABIMBOLA ANTONIO Ot I25.10 ATHSCL HEART DISEASE OF [place] CORONARY 05/07/2016 ABIMBOLA ANTONIO Ot R06.02 SHORTNESS OF BREATH 05/07/2016 ABIMBOLA ANTONIO Ot R07.89 OTHER CHEST PAIN 05/24/2016 EVANGELIST AMAYA MD Ot E78.5 HYPERLIPIDEMIA, UNSPECIFIED 05/24/2016 EVANGELIST AMAYA MD Ot G47.33 OBSTRUCTIVE SLEEP APNEA (ADULT) (PEDIATR 05/24/2016 EVANGELIST AMAYA MD Ot I10 ESSENTIAL (PRIMARY) HYPERTENSION 05/24/2016 EVANGELIST AMAYA MD, Ot I25.10 ATHSCL HEART DISEASE OF [place] CORONARY 05/24/2016 EVANGELIST AMAYA MD Ot R07.89 OTHER CHEST PAIN 05/24/2016 EVANGELIST AMAYA MD Ot R94.39 ABNORMAL RESULT OF OTHER CARDIOVASCULAR 05/24/2016 EVANGELIST AMAYA MD Ot Z79.899 OTHER RETIREMENT (CURRENT) DRUG THERAPY 05/24/2016 EVANGELIST AMAYA MD Ot Z87.891 PERSONAL HISTORY OF NICOTINE DEPENDENCE 05/24/2016 EVANGELIST AMAYA MD Ot Z95.5 PRESENCE OF CORONARY ANGIOPLASTY IMPLANT Procedures Results Test Result Range Complete blood count (CBC) with automated white blood cell (WBC) differential - 02/10/16 13:59 Blood leukocytes automated count (number/volume) 8.3 10*3/ uL 4.3-11.0 Blood erythrocytes automated count (number/volume) 4.48 10*6 /uL 4.35-5.85 Venous blood hemoglobin measurement (mass/volume) 14.3 g/dL 13.3-17.7 Blood hematocrit (volume fraction) 42 % 40-54 Automated erythrocyte mean corpuscular volume 93 [foz_us] 80-99 Automated erythrocyte mean corpuscular hemoglobin (mass per erythrocyte) 32 pg 25-34 Automated erythrocyte mean corpuscular hemoglobin concentration measurement ( mass/volume) 34 g/dL 32-36 Automated erythrocyte distribution width ratio 13.3 % 10.0-14.5 Automated blood platelet count (count/volume) 222 10*3/uL 130-400 Automated blood platelet mean volume measurement 10.1 [foz_ us] 7.4-10.4 Automated blood neutrophils/100 leukocytes 63 % 42-75 Automated blood lymphocytes/100 leukocytes 22 % 12-44 Blood monocytes/100 leukocytes 5 % 0-12 Automated blood eosinophils/100 leukocytes 10 % 0-10 Automated blood basophils/100 leukocytes 0 % 0-10 Blood neutrophils automated count (number/volume) 5.2 10*3 1.8-7.8 Blood lymphocytes automated count (number/volume) 1.8 10*3 1.0-4.0 Blood monocytes automated count (number/volume) 0.5 10*3 0.0-1.0 Automated eosinophil count 0.8 10*3/uL 0.0-0.3 Automated blood basophil count (count/volume) 0.0 10*3/uL 0.0-0.1 Comprehensive metabolic panel - 02/10/16 13:59 Serum or plasma sodium measurement (moles/volume) 139 mmol/ L 135-145 Serum or plasma potassium measurement (moles/volume) 4.3 mmol/L 3.6-5.0 Serum or plasma chloride measurement (moles/volume) 107 mmol /L 98-107 Carbon dioxide 19 mmol/L 21-32 Serum or plasma anion gap determination (moles/volume) 13 mmol/L 5-14 Serum or plasma urea nitrogen measurement (mass/volume) 21 mg/dL 7-18 Serum or plasma creatinine measurement (mass/volume) 1.14 mg /dL 0.60-1.30 Serum or plasma urea nitrogen/creatinine mass ratio 18 NRG Serum or plasma creatinine measurement with calculation of estimated glomerular filtration rate > NRG Serum or plasma glucose measurement (mass/volume) 128 mg/dL 70-105 Serum or plasma calcium measurement (mass/volume) 9.4 mg/dL 8.5-10.1 Serum or plasma total bilirubin measurement (mass/volume) 0.3 mg/dL 0.1-1.0 Serum or plasma alkaline phosphatase measurement (enzymatic activity/volume) 72 U/L 40-136 Serum or plasma aspartate aminotransferase measurement (enzymatic activity/ volume) 59 U/L 5-34 Serum or plasma alanine aminotransferase measurement (enzymatic activity/volume ) 48 U/L 0-55 Serum or plasma protein measurement (mass/volume) 7.2 g/dL 6.4-8.2 Serum or plasma albumin measurement (mass/volume) 4.3 g/dL 3.2-4.5 Serum or plasma troponin i.cardiac measurement (mass/volume) - 02/10/16 13:59 Serum or plasma troponin i.cardiac measurement (mass/volume) < ng/mL <0.30 Serum or plasma C reactive protein measurement (mass/volume) - 02/10/16 13:59 Serum or plasma C reactive protein measurement (mass/volume) 0.09 mg/dL 0.00-0.50 Automated blood complete blood count (hemogram) panel - 04/17/16 11:55 Blood leukocytes automated count (number/volume) 9.4 10*3/ uL 4.3-11.0 Blood erythrocytes automated count (number/volume) 4.44 10*6 /uL 4.35-5.85 Venous blood hemoglobin measurement (mass/volume) 14.1 g/dL 13.3-17.7 Blood hematocrit (volume fraction) 41 % 40-54 Automated erythrocyte mean corpuscular volume 92 [foz_us] 80-99 Automated erythrocyte mean corpuscular hemoglobin (mass per erythrocyte) 32 pg 25-34 Automated erythrocyte mean corpuscular hemoglobin concentration measurement ( mass/volume) 35 g/dL 32-36 Automated erythrocyte distribution width ratio 13.5 % 10.0-14.5 Automated blood platelet count (count/volume) 264 10*3/uL 130-400 Automated blood platelet mean volume measurement 9.2 [foz_us ] 7.4-10.4 PT panel in platelet poor plasma by coagulation assay - 04/17/16 11:55 Prothrombin time (PT) in platelet poor plasma by coagulation assay 13.3 s 12.2-14.7 INR in platelet poor plasma or blood by coagulation assay 1.0 0.8-1.4 Activated partial thromboplastin time (aPTT) in platelet poor plasma bycoagulation assay - 04/17/16 11:55 Activated partial thromboplastin time (aPTT) in platelet poor plasma bycoagulation assay 30 s 24-35 Comprehensive metabolic panel - 04/17/16 11:55 Serum or plasma sodium measurement (moles/volume) 138 mmol/ L 135-145 Serum or plasma potassium measurement (moles/volume) 4.2 mmol/L 3.6-5.0 Serum or plasma chloride measurement (moles/volume) 107 mmol /L 98-107 Carbon dioxide 22 mmol/L 21-32 Serum or plasma anion gap determination (moles/volume) 9 mmol/L 5-14 Serum or plasma urea nitrogen measurement (mass/volume) 22 mg/dL 7-18 Serum or plasma creatinine measurement (mass/volume) 1.19 mg /dL 0.60-1.30 Serum or plasma urea nitrogen/creatinine mass ratio 18 NRG Serum or plasma creatinine measurement with calculation of estimated glomerular filtration rate 60 NRG Serum or plasma glucose measurement (mass/volume) 89 mg/dL 70-105 Serum or plasma calcium measurement (mass/volume) 9.3 mg/dL 8.5-10.1 Serum or plasma total bilirubin measurement (mass/volume) 0.7 mg/dL 0.1-1.0 Serum or plasma alkaline phosphatase measurement (enzymatic activity/volume) 70 U/L 40-136 Serum or plasma aspartate aminotransferase measurement (enzymatic activity/ volume) 31 U/L 5-34 Serum or plasma alanine aminotransferase measurement (enzymatic activity/volume ) 30 U/L 0-55 Serum or plasma protein measurement (mass/volume) 7.1 g/dL 6.4-8.2 Serum or plasma albumin measurement (mass/volume) 4.6 g/dL 3.2-4.5 Lipid 1996 panel - 04/17/16 11:55 Serum or plasma triglyceride measurement (mass/volume) 104 mg/dL <150 Serum or plasma cholesterol measurement (mass/volume) 138 mg /dL < 200 Serum or plasma cholesterol in HDL measurement (mass/volume) 57 mg/dL 40-60 Cholesterol in LDL [mass/volume] in serum or plasma by direct assay 71 mg/dL 1-129 Serum or plasma cholesterol in VLDL measurement (mass/volume) 21 mg/dL 5-40 Methicillin resistant Staphylococcus aureus (MRSA) screening culture - 11:55 Methicillin resistant Staphylococcus aureus (MRSA) screening culture NEG NRG Complete urinalysis with reflex to culture - 04/17/16 13:57 Urine color determination YELLOW NRG Urine clarity determination SLIGHTLY CLOUDY NRG Urine pH measurement by test strip 6 5- 9 Specific gravity of urine by test strip 1.015 1.016-1.022 Urine protein assay by test strip, semi-quantitative NEGATIVE NEGATIVE Urine glucose detection by automated test strip NEGATIVE NEGATIVE Erythrocytes detection in urine sediment by light microscopy 1+ NEGATIVE Urine ketones detection by automated test strip NEGATIVE NEGATIVE Urine nitrite detection by test strip NEGATIVE NEGATIVE Urine total bilirubin detection by test strip NEGATIVE NEGATIVE Urine urobilinogen measurement by automated test strip (mass/volume) NORMAL NORMAL Urine leukocyte esterase detection by dipstick NEGATIVE NEGATIVE Automated urine sediment erythrocyte count by microscopy (number/high power field) NONE NRG Automated urine sediment leukocyte count by microscopy (number/high power field ) NONE NRG Bacteria detection in urine sediment by light microscopy NEGATIVE NRG Squamous epithelial cells detection in urine sediment by light microscopy RARE NRG Crystals detection in urine sediment by light microscopy NONE NRG Casts detection in urine sediment by light microscopy NONE NRG Mucus detection in urine sediment by light microscopy NEGATIVE NRG Complete urinalysis with reflex to culture NO NRG Encounters ACCT No. Visit Date/Time Discharge Status Pt. Type Provider Facility Loc./Unit Complaint [id number] 04/17/2016 10:56:00 2016 21:47:00 DIS Outpatient JOSE LUIS MATIAS, EVANGELIST Arevalo [facility] CATH CP,SOB,ABNORMAL STRESS TEST,CAD [id number] 02/10/2016 12:42:00 2015 15:40:00 DIS Emergency TOY YEUNG MD [facility] ER R SIDE BACK PAIN [id number] 08/10/2015 06:10:00 2015 15:39:00 DIS Outpatient JOSHUA MATIAS, RYAN Jones [facility] PREOP [id number] 02/21/2015 12:53:00 2014 13:52:00 DIS Outpatient MP RAMEY DO [facility] REHAB [id number] 11/02/2014 09:31:00 2014 23:59:59 CLS Outpatient MP RAMEY DO [facility] RAD [id number] 09/09/2014 09:10:00 2014 23:59:59 CLS Outpatient ABIMBOLA ANTONIO [facility] CARD [id number] 11/10/2013 10:58:00 2013 23:59:59 CLS Outpatient [id number] 07/12/2013 14:44:00 2013 23:59:59 CLS Outpatient [id number] 06/23/2013 12:47:00 2013 13:35:00 DIS Outpatient [id number] 02/03/2013 07:56:00 2012 23:59:59 CLS Outpatient [id number] 07/31/2012 08:22:00 2012 23:59:59 CLS Outpatient [id number] 07/31/2012 08:11:00 2012 12:00:00 DIS Outpatient [id number] 07/30/2012 07:49:00 2012 23:59:59 CLS Outpatient [id number] 04/08/2016 07:32:00 ACT Outpatient ABIMBOLA JUAREZ [facility] CARD CAD,CHEST PAIN,HTN,SOB [id number] 03/26/2016 09:57:00 ACT Outpatient ABIMBOLA JUAREZ [facility] CARD CAD,CHEST PAIN,HTN,SOB [id number] 08/11/2015 07:50:00 ACT Outpatient JOSHUA MATIAS, RYAN Jones [facility] [id number] 10/31/2014 07:54:00 Document Registration
[2016-05-25] MEDS ORDERED: KETOROLAC 30 MG/ML VIAL IVP ONE (18:45)
[2016-05-25 19:21] LABS: BASOPHILS % (AUTO) 0 % (0-10); EOSINOPHILS # (AUTO) 0.1 10^3/uL (0.0-0.3); EOSINOPHILS % (AUTO) 1 % (0-10); LYMPHOCYTES % (AUTO) 23 % (12-44); MEAN CORPUSCULAR HEMOGLOBIN 32 PG (25-34); MEAN CORPUSCULAR HGB CONC 35 G/DL (32-36); MEAN CORPUSCULAR VOLUME 92 FL (80-99); MEAN PLATELET VOLUME 9.3 FL (7.4-10.4); MONOCYTES # (AUTO) 0.8 X 10^3 (0.0-1.0); MONOCYTES % (AUTO) 10 % (0-12); NEUTROPHILS # (AUTO) 5.7 X 10^3 (1.8-7.8); NEUTROPHILS % (AUTO) 66 % (42-75); PLATELET COUNT 251 10^3/uL (130-400); RED BLOOD COUNT 4.35 10^6/uL (4.35-5.85); RED CELL DISTRIBUTION WIDTH 13.4 % (10.0-14.5); WHITE BLOOD COUNT 8.6 10^3/uL (4.3-11.0)
[2016-05-25 19:38] LABS: BILIRUBIN,URINE NEGATIVE (NEGATIVE); KETONES,URINE NEGATIVE (NEGATIVE); LEUKOCYTE ESTERASE ,URINE NEGATIVE (NEGATIVE); NITRITE,URINE NEGATIVE (NEGATIVE); PH,URINE 5 (5-9); PROTEIN,URINE NEGATIVE (NEGATIVE); UROBILINOGEN,URINE NORMAL (NORMAL)
--- NOTE | 2016-05-25 19:42 | Diagnostic Imaging Report ---
Indication: Abdominal pain for one week. Discussion: Two views of the chest were obtained, comparison 04/17/2016. Low lung volumes. Normal heart size. Elevated right hemidiaphragm is stable. No focal consolidation, pleural fluid, or pneumothorax. Age-related degenerative changes present throughout the thoracic spine. Impression: 1. No acute cardiopulmonary process. Dictated by: Dictated on workstation # [id number]
[2016-05-25 19:43] LABS: ALBUMIN 4.2 G/DL (3.2-4.5); BILIRUBIN,TOTAL 0.3 MG/DL (0.1-1.0); CALCIUM 9.5 MG/DL (8.5-10.1); CREATININE SERUM 1.48 MG/DL (0.60-1.30); POTASSIUM 4.1 MMOL/L (3.6-5.0); TOTAL PROTEIN 6.7 G/DL (6.4-8.2)
--- NOTE | 2016-05-25 19:43 | Diagnostic Imaging Report ---
Procedure: CT urinary tract, rule out kidney stone. Technique: Multiple contiguous axial images were obtained through the abdomen and pelvis without the use of intravenous contrast. Indication: Intermittent right-sided abdominal pain for 10 days. Comparison: 03/12/2012. Discussion: The visualized lung bases are well-aerated. Normal heart size. No pleural or pericardial fluid. The gallbladder is surgically absent. The liver, stomach, spleen and adrenal glands are unremarkable. Fatty atrophy of the pancreas is stable. 3 mm partially obstructing stone is noted within the mid right ureter. There is mild right hydronephrosis. Mild right perinephric stranding. Additional nonobstructing bilateral renal calculi are noted measuring up to 3 mm. No hydronephrosis on the left. Colonic diverticulosis with no secondary evidence for diverticulitis. No obstruction, pneumatosis or pneumoperitoneum. The appendix is normal. No ascites or pathologically enlarged lymph node is identified. Operative changes are again noted within the left hip. No acute osseous abnormality identified. Degenerative changes are present throughout the lumbar spine. Impression: 1. A 3 mm partially obstructing stone is within the mid right ureter contributing to mild right hydronephrosis. 2. Additional punctate nonobstructing bilateral renal calculi. 3. Diverticulosis. Dictated by: Dictated on workstation # [id number]
[2016-05-25 19:57] LABS: HYALINE CASTS, URINE RARE /LPF
--- NOTE | 2016-05-25 19:59 | Diagnostic Imaging Report ---
Indication: Right-sided abdominal pain. Discussion: Two supine views of the abdomen were obtained, comparison with CT from same date. Small bilateral nonobstructing renal calculi and an additional partially obstructing stone within the mid right ureter is not seen on plain film, likely obscured by osseous structures and stool. Constipation is noted. No abnormal small bowel loops are identified. Total left hip arthroplasty is present. Impression: 1. Constipation. 2. Known renal calculi and right ureteral stone on CT are not well seen by plain film. Dictated by: Dictated on workstation # [id number]
[2016-05-25] MEDS ORDERED: HYDROcodone/APAP 5 MG/325 MG (LORTAB) TAB PO ONE (20:00)
[2016-05-25] MEDS ORDERED: TAMS0.4C98 PO (20:05)
[2016-05-25] MEDS ORDERED: ALFUZOSIN HCL 10 MG TAB (UROXATRAL) PO SCH (20:15)
[2016-05-25] MEDS ORDERED: NS IV 500 ML 500 ML IV SCH (20:15)
[2016-05-25 20:48] VITALS: BP 166/85
== END 2016-05-25 20:47 | disposition home or self-care (01) ==
LOC: EDUNIT# 18:35 → ER 18:36
DX: N20.2 Calculus of kidney with calculus of ureter (principal); N28.9 Disorder of kidney and ureter, unspecified; K57.30 Diverticulosis of large intestine without perforation or abscess without bleeding; I10 Essential (primary) hypertension; Z79.82 Long term (current) use of aspirin; Z79.899 Other long term (current) drug therapy; Z90.49 Acquired absence of other specified parts of digestive tract
CPT/HCPCS: 36415; 71020; 74000; 74176; 80053; 81000; 85025; 96361; 96374

== ENCOUNTER 2016-05-28 16:32 | Emergency (ER) | payer MEDICARE, OTHER ==
[~2016-05-28] VITALS: Ht 177.8 cm; Wt 113.4 kg
[~2016-05-28 16:32] MED LIST changes: +TAMS0.4C98 PO
--- OUTSIDE RECORDS SUMMARY | 2016-05-28 16:38 | XMS REPORT | Continuity of Care Document ---
Author Author [facility] Organization [facility] Address Unknown Phone Unavailable Allergies Active Description Code Type Severity Reaction Onset Reported/Identified Relationship to Patient Clinical Status Yes ezetimibe [id number] Drug Allergy Unknown N/A 08/11/2015 Yes iodine [id number] Drug Allergy Unknown N/A 08/11/2015 Yes Penicillins [id number] Drug Allergy Unknown N/A 08/11/2015 Yes simvastatin [id number] Drug Allergy Unknown N/A 08/11/2015 Medications Problems [...] Ot M54.6 PAIN IN THORACIC SPINE 02/10/2016 TOY YEUNG MD Ot S39.012A STRAIN OF MUSCLE, FASCIA AND TENDON OF L 02/10/2016 OTY YEUNG MD Ot X50.0XXA OVEREXERTION FROM STRENUOUS [...] ANTONIO Ot I25.10 ATHSCL HEART DISEASE OF [place] CORONARY 03/27/2016 ABIMBOLA ANTONIO Ot R06.02 SHORTNESS OF BREATH 03/27/2016 ABIMBOLA ANTONIO Ot R07.89 OTHER CHEST PAIN 04/08/2016 ABIMBOLA ANTONIO Ot I10 ESSENTIAL (PRIMARY) HYPERTENSION 04/08/2016 ABIMBOLA ANTONIO Ot I25.10 ATHSCL HEART DISEASE OF [place] CORONARY 04/08/2016 ABIMBOLA ANTONIO Ot R06.02 SHORTNESS OF BREATH 04/08/2016 ABIMBOLA ANTONIO Ot R07.89 OTHER CHEST PAIN 04/18/2016 ABIMBOLA ANTONIO Ot I10 ESSENTIAL (PRIMARY) HYPERTENSION 04/18/2016 ABIMBOLA ANTONIO Ot I25.10 ATHSCL HEART DISEASE OF [place] CORONARY 04/18/2016 ABIMBOLA ANTONIO Ot R06.02 SHORTNESS OF BREATH 04/18/2016 ABIMBOLA ANTONIO Ot R07.89 OTHER CHEST PAIN 04/23/2016 ABIMBOLA ANTONIO Ot I10 ESSENTIAL (PRIMARY) HYPERTENSION 04/23/2016 ABIMBOLA ANTONIO Ot I25.10 ATHSCL HEART DISEASE OF [place] CORONARY 04/23/2016 ABIMBOLA ANTONIO Ot R06.02 SHORTNESS OF BREATH 04/23/2016 ABIMBOLA ANTONIO Ot R07.89 OTHER CHEST PAIN 04/25/2016 EVANGELIST AMAYA MD Ot E78.5 HYPERLIPIDEMIA, UNSPECIFIED 04/25/2016 EVANGELIST AMAYA MD Ot G47.33 OBSTRUCTIVE SLEEP APNEA (ADULT) (PEDIATR 04/25/2016 EVANGELIST AMAYA MD Ot I10 ESSENTIAL (PRIMARY) HYPERTENSION 04/25/2016 EVANGELIST AMAYA MD Ot I25.10 ATHSCL HEART DISEASE OF [place] CORONARY 04/25/2016 EVANGELIST AMAYA MD Ot R07.89 OTHER CHEST PAIN 04/25/2016 EVANGELIST AMAYA MD Ot R94.39 ABNORMAL RESULT OF OTHER CARDIOVASCULAR 04/25/2016 EVANGELIST AMAYA MD Ot Z79.899 OTHER ASSISTED (CURRENT) DRUG THERAPY 04/25/2016 EVANGELIST AMAYA MD Ot Z87.891 PERSONAL HISTORY OF NICOTINE DEPENDENCE 04/25/2016 EVANGELIST AMAYA MD Ot Z95.5 PRESENCE OF CORONARY ANGIOPLASTY IMPLANT 05/02/2016 ABIMBOLA ANTONIO Ot I10 ESSENTIAL (PRIMARY) HYPERTENSION 05/02/2016 ABIMBOLA ANTONIO Ot I25.10 ATHSCL HEART DISEASE OF [place] CORONARY 05/02/2016 ABIMBOLA ANTONIO Ot R06.02 SHORTNESS OF BREATH 05/02/2016 ABIMBOLA ANTONIO Ot R07.89 OTHER CHEST PAIN 05/07/2016 ABIMBOLA ANTONIO Ot I10 ESSENTIAL (PRIMARY) HYPERTENSION 05/07/2016 ABIMBOLA ANTONIO Ot I25.10 ATHSCL HEART DISEASE OF [place] CORONARY 05/07/2016 ABIMBOLA ANTONIO Ot R06.02 SHORTNESS OF BREATH 05/07/2016 ABIMBOLA ANTONIO Ot R07.89 OTHER CHEST PAIN 05/24/2016 EVANGELIST AMAYA MD Ot E78.5 HYPERLIPIDEMIA, UNSPECIFIED 05/24/2016 EVANGELIST AMAYA MD Ot G47.33 OBSTRUCTIVE SLEEP APNEA (ADULT) (PEDIATR 05/24/2016 EVANGELIST AMAYA MD Ot I10 ESSENTIAL (PRIMARY) HYPERTENSION 05/24/2016 EVANGELIST AMAYA MD Ot I25.10 ATHSCL HEART DISEASE OF [place] CORONARY 05/24/2016 EVANGELIST AMAYA MD Ot R07.89 OTHER CHEST PAIN 05/24/2016 EVANGELIST AMAYA MD Ot R94.39 ABNORMAL RESULT OF OTHER CARDIOVASCULAR 05/24/2016 EVANGELIST AMAYA MD Ot Z79.899 OTHER ASSISTED (CURRENT) DRUG THERAPY 05/24/2016 EVANGELIST AMAYA MD Ot Z87.891 PERSONAL HISTORY OF NICOTINE DEPENDENCE 05/24/2016 EVANGELIST AMAYA MD Ot Z95.5 PRESENCE OF CORONARY ANGIOPLASTY IMPLANT 05/27/2016 ALYSON GONZALEZ APRN Ot I10 ESSENTIAL (PRIMARY) HYPERTENSION 05/27/2016 ALYSON GONZALEZ APRN Ot K57.30 DVRTCLOS OF LG INT W/O PERFORATION OR AB 05/27/2016 ALYSON GONZALEZ APRN Ot N20.2 CALCULUS OF KIDNEY WITH CALCULUS OF URET 05/27/2016 ALYSON GONZALEZ APRN Ot N28.9 DISORDER OF KIDNEY AND URETER, UNSPECIFI 05/27/2016 ALYSON GONZALEZ APRN Ot R10.31 RIGHT LOWER QUADRANT PAIN 05/27/2016 ALYSON GONZALEZ APRN Ot Z79.82 ASSISTED (CURRENT) USE OF ASPIRIN 05/27/2016 ALYSON GONZALEZ APRN Ot Z79.899 OTHER DEVELOPER RELATIONS MANAGER (CURRENT) DRUG THERAPY 05/27/2016 ALYSON GONZALEZ APRN Ot Z90.49 ACQUIRED ABSENCE OF OTHER SPECIFIED PART Procedures Encounters ACCT No. Visit Date/Time Discharge Status Pt. Type Provider Facility Loc./Unit Complaint [id number] 05/25/2016 18:36:00 2016 20:47:00 DIS Outpatient ALYSON GONZALEZ APRN [facility] ER FLANK PAIN [id number] 04/17/2016 10:56:00 2016 21:47:00 DIS Outpatient JOSE LUIS MATIAS, EVANGELIST Arevalo [facility] CATH CP,SOB,ABNORMAL STRESS TEST,CAD [id number] 02/10/2016 12:42:00 2015 15:40:00 DIS Emergency TOY YEUNG MD [facility] ER R SIDE BACK PAIN [id number] 08/10/2015 06:10:00 2015 15:39:00 DIS Outpatient RYAN LEWIS MD [facility] PREOP [id number] 02/21/2015 12:53:00 2014 13:52:00 DIS Outpatient MP RAMEY DO [facility] REHAB [id number] 11/02/2014 09:31:00 2014 23:59:59 CLS Outpatient MP RAMEY DO [facility] RAD [id number] 09/09/2014 09:10:00 2014 23:59:59 CLS Outpatient ABIMBOLA ANTONIO [facility] CARD [id number] 11/10/2013 10:58:00 2013 23:59:59 CLS Outpatient [id number] 07/12/2013 14:44:00 2013 23:59:59 CLS Outpatient [id number] 06/23/2013 12:47:00 2013 13:35:00 DIS Outpatient [id number] 02/03/2013 07:56:00 2012 23:59:59 CLS Outpatient [id number] 07/31/2012 08:22:00 2012 23:59:59 CLS Outpatient [id number] 07/31/2012 08:11:00 2012 12:00:00 DIS Outpatient [id number] 07/30/2012 07:49:00 2012 23:59:59 CLS Outpatient [id number] 05/28/2016 16:33:00 ACT Emergency NITZA MATIAS , JOSE Hawk [facility] ER BACK,KIDNEY PAIN [id number] 04/08/2016 07:32:00 ACT Outpatient ABIMBOLA JUAREZ [facility] CARD CAD,CHEST PAIN,HTN,SOB [id number] 03/26/2016 09:57:00 ACT Outpatient ABIMBOLA JUAREZ [facility] CARD CAD,CHEST PAIN,HTN,SOB [id number] 08/11/2015 07:50:00 ACT Outpatient JOSHUA MATIAS, RYAN Jones [facility] [id number] 10/31/2014 07:54:00 Document Registration
[2016-05-28] MEDS ORDERED: KETOROLAC 30 MG/ML VIAL IVP ONE (17:30)
[2016-05-28 17:33] LABS: BASOPHILS % (AUTO) 0 % (0-10); EOSINOPHILS # (AUTO) 0.1 10^3/uL (0.0-0.3); EOSINOPHILS % (AUTO) 1 % (0-10); LYMPHOCYTES # (AUTO) 1.4 X 10^3 (1.0-4.0); LYMPHOCYTES % (AUTO) 13 % (12-44); MEAN CORPUSCULAR HEMOGLOBIN 32 PG (25-34); MEAN CORPUSCULAR HGB CONC 35 G/DL (32-36); MEAN CORPUSCULAR VOLUME 92 FL (80-99); MEAN PLATELET VOLUME 9.2 FL (7.4-10.4); MONOCYTES # (AUTO) 0.9 X 10^3 (0.0-1.0); MONOCYTES % (AUTO) 9 % (0-12); NEUTROPHILS # (AUTO) 8.1 X 10^3 (1.8-7.8); NEUTROPHILS % (AUTO) 77 % (42-75); PLATELET COUNT 236 10^3/uL (130-400); RED BLOOD COUNT 4.21 10^6/uL (4.35-5.85); RED CELL DISTRIBUTION WIDTH 13.1 % (10.0-14.5); WHITE BLOOD COUNT 10.5 10^3/uL (4.3-11.0)
[2016-05-28 17:41] LABS: BILIRUBIN,URINE NEGATIVE (NEGATIVE); KETONES,URINE NEGATIVE (NEGATIVE); LEUKOCYTE ESTERASE ,URINE NEGATIVE (NEGATIVE); NITRITE,URINE NEGATIVE (NEGATIVE); PH,URINE 7 (5-9); PROTEIN,URINE NEGATIVE (NEGATIVE); UROBILINOGEN,URINE NORMAL (NORMAL)
[2016-05-28 17:56] LABS: ALBUMIN 4.3 G/DL (3.2-4.5); BILIRUBIN,TOTAL 0.8 MG/DL (0.1-1.0); CALCIUM 9.4 MG/DL (8.5-10.1); CREATININE SERUM 1.91 MG/DL (0.60-1.30); POTASSIUM 4.4 MMOL/L (3.6-5.0); TOTAL PROTEIN 7.2 G/DL (6.4-8.2)
--- NOTE | 2016-05-28 18:10 | Diagnostic Imaging Report ---
INDICATION: Right-sided flank pain. DISCUSSION: Three views of the abdomen were obtained, comparison 05/25/2016. Mild constipation is again noted. The gallbladder is surgically absent. Again, the known bilateral nonobstructing renal calculi and right ureteral stone, as seen on CT from 05/25/2016, are not appreciated by plain film. The visualized lung bases are well aerated. Postoperative changes are again noted within the left hip. Degenerative changes within the lumbar spine are stable. IMPRESSION: 1. No renal or ureteral stone identified by plain film. 2. Constipation. Dictated by: Dictated on workstation # [id number]
[2016-05-28] MEDS ORDERED: NS IV 1000 ML 1,000 ML IV ONE (18:33)
--- NOTE | 2016-05-28 19:04 | ED Abdominal Pain ---
General Chief Complaint: Abdominal/GI Problems Stated Complaint: BACK,KIDNEY PAIN Nursing Triage Note: PT STATES HE HAS KIDNEY STONES, WAS SEEN IN ED A FEW DAYS AGO. STATES URINARY FREQUENCY AND URGENCY AND INCREASED PAIN. Sepsis Screen: No Definite Risk Source of Information: Patient, Old Records Exam Limitations: No Limitations History of Present Illness Time Seen By Provider: 17:17 Initial Comments This 76 year old gentleman presents to the emergency room with complaints of abdominal pain. He was seen on May 25 and diagnosed with a right ureteral stone by CT scan. Review of the chart and CT report notes that there are additional stones in the right kidney. To his knowledge he has not passed the stone. His pain is actually migratory and has been present in the bilateral flanks. He had "a bad night" last night as he had difficulty sleeping due to the pain. He has taken hydrocodone and Flomax. He complains of feeling drowsy because of his hydrocodone use. His last hydrocodone dose was at 07:00. He also complains of a generalized bloating and discomfort in the upper abdomen which has been addressed by his primary care provider. He has a history of GERD but recently stopped Dexilant for fear it might interact with other medications. Allergies and Home Medications Allergies Coded Allergies: Penicillins (Verified Allergy, Unknown, 01/08/12) ezetimibe (Verified Allergy, Unknown, 01/08/12) iodine (Verified Allergy, Unknown, 01/08/12) simvastatin (Verified Allergy, Unknown, 01/08/12) Home Medications 1 CAP PO DAILY (Reported) Allopurinol 300 Mg Tab 300 MG PO DAILY (Reported) Aspirin 81 Mg Tablet.dr 81 MG PO DAILY (Reported) Dexlansoprazole 60 Mg Cap.bp 60 MG PO DAILY PRN PRN INDIGESTION (Reported) Multivits,Ca,Min/Iron/FA/Lycop 1 Each Tablet 1 TAB PO DAILY (Reported) Nitroglycerin 0.4 Mg Tab.subl 0.4 MG SL DAILY PRN PRN PRN CHEST PAIN (Reported) Propylene Glycol 10 Ml Drops 1 DROP OU DAILY PRN PRN DRY EYES (Reported) Rosuvastatin Calcium 5 Mg Tablet 5 MG PO DAILY (Reported) LAST FILLED 01/01/16 #90 Tamsulosin HCl 0.4 Mg Cap #10 0.4 MG PO DAILY Prescribed by: ALYSON GONZALEZ on 05/25/162004 Review of Systems Constitutional: no symptoms reported EENTM: No Symptoms Reported Respiratory: No Symptoms Reported Cardiovascular: No Symptoms Reported Gastrointestinal: See HPI Genitourinary: See HPI Musculoskeletal: no symptoms reported Skin: no symptoms reported Psychiatric/Neurological: See HPI Endocrine: No Symptoms Reported Past Rsjkocz-Yotgnp-Nwqyvs Hx Patient Social History Alcohol Use: Denies Use Recreational Drug Use: No Smoking Status: Never a Smoker 2nd Hand Smoke Exposure: No Recent Foreign Travel: No Contact w/Someone Who Travel: No Recent Infectious Disease Expo: No Recent Hopitalizations: No Immunizations Up To Date Date of Pneumonia Vaccine: Dec 18, 2015 Date of Influenza Vaccine: Dec 18, 2015 Seasonal Allergies Seasonal Allergies: No Surgeries HX Surgeries: Yes Surgeries: Abdominal (endoscopy), Coronary Stent, Gallbladder, Orthopedic, Tonsillectomy Respiratory Hx Respiratory Disorders: Yes Respiratory Disorders: Sleep Apnea Cardiovascular Hx Cardiac Disorders: Yes Cardiac Disorders: Coronary Artery Disease, High Cholesterol, Hypertension Neurological Hx Neurological Disorders: No Reproductive System Hx Reproductive Disorders: No Sexually Transmitted Disease: No HIV/AIDS: No Genitourinary Hx Genitourinary Disorders: Yes Genitourinary Disorders: Kidney Stones Gastrointestinal Hx Gastrointestinal Disorders: Yes Gastrointestinal Disorders: Gastroesophageal Reflux Musculoskeletal Hx Musculoskeletal Disorders: No Endocrine Hx Endocrine Disorders: No HEENT HX ENT Disorders: No Cancer Hx Cancer: No Psychosocial Hx Psychiatric Problems: No Integumentary HX Skin/Integumentary Disorder: No Blood Transfusions Hx Blood Disorders: No Adverse Reaction to a Blood Tr: No Family Medical History Significant Family History: No Pertinent Family Hx Physical Exam Vital Signs VS - Last 72 Hours, by Label 05/28/16 05/28/16 17:10 19:49 Temp 98.3 Pulse 96 88 Resp 18 18 B/P 168/98 Pulse Ox 99 Capillary Refill : Less Than 3 Seconds General Appearance: WD/WN no apparent distress obese HEENT: PERRL/EOMI normal ENT inspection Respiratory: lungs clear normal breath sounds no respiratory distress no accessory muscle use Cardiovascular: regular rate, rhythm no edema no murmur Gastrointestinal: normal bowel sounds soft tenderness (generalized discomfort on palpation) other (abdomen feels full but not distended) Extremities: normal inspection no pedal edema Neurologic/Psychiatric: cleaner assistant II-XII nml as tested no motor/sensory deficits alert normal mood/affect oriented x 3 Skin: normal color warm/dry Focused Exam Lactic Acid Level Laboratory Tests Test 3/14/17 17:26 Alanine Aminotransferase (ALT/SGPT) 27U/L (0-55) Albumin 4.3G/DL (3.2-4.5) Alkaline Phosphatase 78U/L (40-136) Anion Gap 13MMOL/L (5-14) Aspartate Amino Transf (AST/SGOT) 31U/L (5-34) BUN/Creatinine Ratio 10 Blood Urea Nitrogen 20MG/DL (7-18) H Calcium Level 9.4MG/DL (8.5-10.1) Carbon Dioxide Level 21MMOL/L (21-32) Chloride Level 101MMOL/L (98-107) Creatinine 1.91MG/DL (0.60-1.30) H Estimat Glomerular Filtration Rate 35 Glucose Level 106MG/DL (70-105) H Lipase 5U/L (8-78) L Potassium Level 4.4MMOL/L (3.6-5.0) Sodium Level 135MMOL/L (135-145) Total Bilirubin 0.8MG/DL (0.1-1.0) Total Protein 7.2G/DL (6.4-8.2) Progress/Results/Core Measures Results/Orders Lab Results Laboratory Tests Test 05/28/16 17:05 05/28/16 17:26 Range/Units Urine Bacteria NEGATIVE /HPF Urine Bilirubin NEGATIVE NEGATIVE Urine Casts NONE /LPF Urine Clarity CLEAR Urine Color YELLOW Urine Crystals NONE /LPF Urine Culture Indicated NO Urine Glucose (UA) NEGATIVE NEGATIVE Urine Ketones NEGATIVE NEGATIVE Urine Leukocyte Esterase NEGATIVE NEGATIVE Urine Mucus NEGATIVE /LPF Urine Nitrite NEGATIVE NEGATIVE Urine Protein NEGATIVE NEGATIVE Urine RBC 0-2 /HPF Urine RBC (Auto) 2+ H NEGATIVE Urine Specific [place] 1.010 L 1.016-1.022 Urine Urobilinogen NORMAL NORMAL MG/DL Urine WBC NONE /HPF Urine pH 7 5-9 Alanine Aminotransferase (ALT/SGPT) 27 0-55 U/L Albumin 4.3 3.2-4.5 G/DL Alkaline Phosphatase 78 40-136 U/L Anion Gap 13 5-14 MMOL/L Aspartate Amino Transf (AST/SGOT) 31 5-34 U/L BUN/Creatinine Ratio 10 Basophils # (Auto) 0.0 0.0-0.1 10^3/uL Basophils (%) (Auto) 0 0-10 % Blood Urea Nitrogen 20 H 7-18 MG/DL Calcium Level 9.4 8.5-10.1 MG/DL Carbon Dioxide Level 21 21-32 MMOL/L Chloride Level 101 98-107 MMOL/L Creatinine 1.91 H 0.60-1.30 MG/DL Eosinophils # (Auto) 0.1 0.0-0.3 10^3/uL Eosinophils (%) (Auto) 1 0-10 % Estimat Glomerular Filtration Rate 35 Glucose Level 106 H 70-105 MG/DL Hematocrit 39 L 40-54 % Hemoglobin 13.5 13.3-17.7 G/DL Lipase 5 L 8-78 U/L Lymphocytes # (Auto) 1.4 1.0-4.0 X 10^3 Lymphocytes (%) (Auto) 13 12-44 % Mean Corpuscular Hemoglobin 32 25-34 PG Mean Corpuscular Hemoglobin Concent 35 32-36 G/DL Mean Corpuscular Volume 92 80-99 FL Mean Platelet Volume 9.2 7.4-10.4 FL Monocytes # (Auto) 0.9 0.0-1.0 X 10^3 Monocytes (%) (Auto) 9 0-12 % Neutrophils # (Auto) 8.1 H 1.8-7.8 X 10^3 Neutrophils (%) (Auto) 77 H 42-75 % Platelet Count 236 130-400 10^3/uL Potassium Level 4.4 3.6-5.0 MMOL/L Red Blood Count 4.21 L 4.35-5.85 10^6/uL Red Cell Distribution Width 13.1 10.0-14.5 % Sodium Level 135 135-145 MMOL/L Total Bilirubin 0.8 0.1-1.0 MG/DL Total Protein 7.2 6.4-8.2 G/DL White Blood Count 10.5 4.3-11.0 10^3/uL My Orders Orders-JOSE GODDARD MD Cbc With Automated Diff (05/28/16 17:17) Comprehensive Metabolic Panel (05/28/16 17:17) Lipase (05/28/16 17:17) Ua Culture If Indicated (05/28/16 17:17) Saline Lock/Iv-Start (05/28/16 17:17) Ketorolac Injection (Toradol Injection) (05/28/16 17:30) Abdomen, Flat & Upright/Decub (05/28/16 17:22) Ns Iv 1000 Ml (Sodium Chloride 0.9%) (05/28/16 18:33) Medications Given in ED Vital Signs/I&O Vital Sign - Last 12Hours 05/28/16 05/28/16 17:10 19:49 Temp 98.3 Pulse 96 88 Resp 18 18 B/P 168/98 Pulse Ox 99 Blood Pressure Mean: 121 Progress Note : Progress Note X-rays of the abdomen were obtained. The radiologist commented on constipation but no stones were evident. On my review, I believe there to be a small calcification near the right distal ureter which could be the stone seen on CT. Patient was treated with Toradol for pain with good results. Labs returned demonstrating elevated creatinine. A liter of IV fluids was administered along with oral hydration. I discussed the plan with patient including treatment of constipation and need for hydration. Patient expressed understanding. I also advised that he seek referral to a urologist. See discharge instructions. Diagnostic Imaging Diagonstic Imaging: Xray Plain Films/CT/US/NM/MRI: chest Comments Abdominal x-rays reviewed by me and report reviewed. See report below: NAME: MONICA JAMES [facility] REC#: [id number] PT STATUS: DEP ER : 1940 PHYSICIAN: JOSE GODDARD MD ADMIT DATE: 05/28/16/ER Signed Date of Exam: 05/28/16 ABDOMEN, FLAT & UPRIGHT/DECUB INDICATION: Right-sided flank pain. DISCUSSION: Three views of the abdomen were obtained, comparison 05/25/2016. Mild constipation is again noted. The gallbladder is surgically absent. Again, the known bilateral nonobstructing renal calculi and right ureteral stone, as seen on CT from 05/25/2016, are not appreciated by plain film. The visualized lung bases are well aerated. Postoperative changes are again noted within the left hip. Degenerative changes within the lumbar spine are stable. IMPRESSION: 1. No renal or ureteral stone identified by plain film. 2. Constipation. Dictated by: Dictated on workstation # [id number] Dict: 05/28/16 1756 Trans: 05/28/16 2210 [id number] Interpreted by: CALEB MARIE MD Electronically signed by:CALEB MARIE MD 05/28/16 [id number] Departure Impression Impression: Primary Impression: Generalized abdominal pain Additional Impressions: Constipation Qualified Code: K59.00 - Constipation, unspecified Right ureteral stone Acute kidney injury Disposition: HOME, SELF-CARE Condition: Improved Departure-Patient Inst. Decision time for Depature: 18:50 Referrals: RYAN GIRON MD (PCP/Family) Primary Care Physician Patient Instructions: Constipation in Adults, Kidney Stones in Adults Add. Discharge Instructions: Drink lots of water. Avoid caffeinated beverages. Treat your pain with Tylenol or hydrocodone. Use a stool softener twice daily while on narcotics. Avoid use of NSAIDs such as ibuprofen, naproxen, Aleve, etc. You may use MiraLAX once or twice daily as needed for constipation. Consume primarily a clear liquid diet until a good bowel movement is produced. Follow-up with Dr. Giron within one week to have your kidney function monitored. Contact Dr. Giron's office regarding a consultation with urology. Return to the emergency room if symptoms worsen. All discharge instructions reviewed with patient and/or family. Voiced understanding. Copy Copies To 1: RYAN GIRON MD, JOSHUA T MD May 28, 2016 19:03
[2016-05-28 19:49] VITALS: BP 157/90
== END 2016-05-28 19:48 | disposition home or self-care (01) ==
LOC: EDUNIT# 16:32 → ER 16:33
DX: K59.00 Constipation, unspecified (principal); N20.0 Calculus of kidney; R10.84 Generalized abdominal pain; N17.9 Acute kidney failure, unspecified; I10 Essential (primary) hypertension; Z79.82 Long term (current) use of aspirin; Z79.899 Other long term (current) drug therapy
CPT/HCPCS: 36415; 74020; 80053; 81000; 83690; 85025; 96361; 96374

== ENCOUNTER 2016-06-06 08:01 | Outpatient (RCR) | payer MEDICARE, OTHER ==
--- OUTSIDE RECORDS SUMMARY | 2016-06-04 11:17 | XMS REPORT | Continuity of Care Document ---
Author Author [facility] Organization [facility] Address Unknown Phone Unavailable Allergies Active Description Code Type Severity Reaction Onset Reported/Identified Relationship to Patient Clinical Status Yes ezetimibe [id number] Drug Allergy Unknown N/A 08/11/2015 Yes iodine [id number] Drug Allergy Unknown N/A 08/11/2015 Yes Penicillins [id number] Drug Allergy Unknown N/A 08/11/2015 Yes simvastatin [id number] Drug Allergy Unknown N/A 08/11/2015 Medications Problems [...] ANTONIO Ot I25.10 ATHSCL HEART DISEASE OF [place] CORONARY 03/27/2016 ABIMBOLA ANTONIO Ot R06.02 SHORTNESS OF BREATH 03/27/2016 ABIMBOLA ANTONIO Ot R07.89 OTHER CHEST PAIN 04/08/2016 ABIMBOLA ANTONIO Ot I10 ESSENTIAL (PRIMARY) HYPERTENSION 04/08/2016 ABIMBOLA ANTONIO Ot I25.10 ATHSCL HEART DISEASE OF [place] CORONARY 04/08/2016 ABIMBOLA ANTONIO Ot R06.02 SHORTNESS OF BREATH 04/08/2016 ABIMBOLA ANTONIO Ot R07.89 OTHER CHEST PAIN 04/18/2016 ABIMBOLA ANTONIO Ot I10 ESSENTIAL (PRIMARY) HYPERTENSION 04/18/2016 ABIMBOLA ANTONIO Ot I25.10 ATHSCL HEART DISEASE OF [place] CORONARY 04/18/2016 BAIMBOLA ANTONIO Ot R06.02 SHORTNESS OF BREATH 04/18/2016 ABIMBOLA ANTONIO Ot R07.89 OTHER CHEST PAIN 04/23/2016 ABIMBOLA ANTONIO Ot I10 ESSENTIAL (PRIMARY) HYPERTENSION 04/23/2016 ABIMBOLA ANTONIO Ot I25.10 ATHSCL HEART DISEASE OF [place] CORONARY 04/23/2016 ABIMBOLA ANTONIO Ot R06.02 SHORTNESS OF BREATH 04/23/2016 ABIMBOLA ANTONIO Ot R07.89 OTHER CHEST PAIN 04/25/2016 EVANGELIST AMAYA MD Ot E78.5 HYPERLIPIDEMIA, UNSPECIFIED 04/25/2016 EVANGELIST AMAYA MD Ot G47.33 OBSTRUCTIVE SLEEP APNEA (ADULT) (PEDIATR 04/25/2016 EVANGELIST AMAYA MD Ot I10 ESSENTIAL (PRIMARY) HYPERTENSION 04/25/2016 EVANGELIST AMAYA MD Ot I25.10 ATHSCL HEART DISEASE OF [place] CORONARY 04/25/2016 EVANGELIST AMAYA MD Ot R07.89 OTHER CHEST PAIN 04/25/2016 EVANGELIST AMAYA MD Ot R94.39 ABNORMAL RESULT OF OTHER CARDIOVASCULAR 04/25/2016 EVANGELIST AMAYA MD Ot Z79.899 OTHER USP (CURRENT) DRUG THERAPY 04/25/2016 EVANGELIST AMAYA MD Ot Z87.891 PERSONAL HISTORY OF NICOTINE DEPENDENCE 04/25/2016 EVANGELIST AMAYA MD Ot Z95.5 PRESENCE OF CORONARY ANGIOPLASTY IMPLANT 05/02/2016 ABIMBOLA ANTONIO Ot I10 ESSENTIAL (PRIMARY) HYPERTENSION 05/02/2016 ABIMBOLA ANTONIO Ot I25.10 ATHSCL HEART DISEASE OF [place] CORONARY 05/02/2016 ABIMBOLA ANTONIO Ot R06.02 SHORTNESS OF BREATH 05/02/2016 ABIMBOLA ANTONIO Ot R07.89 OTHER CHEST PAIN 05/07/2016 ABIMBOLA ANTONIO Ot I10 ESSENTIAL (PRIMARY) HYPERTENSION 05/07/2016 ABIMBOLA ANTONIO Ot I25.10 ATHSCL HEART DISEASE OF [place] CORONARY 05/07/2016 ABIMBOLA ANTONIO Ot R06.02 SHORTNESS OF BREATH 05/07/2016 ABIMBOLA ANTONIO Ot R07.89 OTHER CHEST PAIN 05/24/2016 EVANGELIST AMAYA MD Ot E78.5 HYPERLIPIDEMIA, UNSPECIFIED 05/24/2016 EVANGELIST AMAYA MD Ot G47.33 OBSTRUCTIVE SLEEP APNEA (ADULT) (PEDIATR 05/24/2016 EVANGELIST AMAYA MD Ot I10 ESSENTIAL (PRIMARY) HYPERTENSION 05/24/2016 EVANGELIST AMAYA MD Ot I25.10 ATHSCL HEART DISEASE OF [place] CORONARY 05/24/2016 EVANGELIST AMAYA MD Ot R07.89 OTHER CHEST PAIN 05/24/2016 EVANGELIST AMAYA MD Ot R94.39 ABNORMAL RESULT OF OTHER CARDIOVASCULAR 05/24/2016 EVANGELIST AMAYA MD Ot Z79.899 OTHER USP (CURRENT) DRUG THERAPY 05/24/2016 EVANGELIST AMAYA MD Ot Z87.891 PERSONAL HISTORY OF NICOTINE DEPENDENCE 05/24/2016 EVANGELIST AMAYA MD Ot Z95.5 PRESENCE OF CORONARY ANGIOPLASTY IMPLANT 05/25/2016 ALYSON GONZALEZ APRN Ot I10 ESSENTIAL (PRIMARY) HYPERTENSION 05/25/2016 ALYSON GONZALEZ APRN Ot K57.30 DVRTCLOS OF LG INT W/O PERFORATION OR AB 05/25/2016 ALYSON GONZALEZ APRN Ot N20.2 CALCULUS OF KIDNEY WITH CALCULUS OF URET 05/25/2016 ALYSON GONZALEZ APRN Ot N28.9 DISORDER OF KIDNEY AND URETER, UNSPECIFI 05/25/2016 ALYSON GONZALEZ APRN Ot R10.31 RIGHT LOWER QUADRANT PAIN 05/25/2016 ALYSON GONZALEZ APRN Ot Z79.82 USP (CURRENT) USE OF ASPIRIN 05/25/2016 ALYSON GONZALEZ APRN Ot Z79.899 OTHER WALL INSULATION SPRAYER (CURRENT) DRUG THERAPY 05/25/2016 ALYSON GONZALEZ APRN Ot Z90.49 ACQUIRED ABSENCE OF OTHER SPECIFIED PART 05/27/2016 ALYSON GONZALEZ APRN Ot I10 ESSENTIAL (PRIMARY) HYPERTENSION 05/27/2016 ALYSON GONZALEZ APRN Ot K57.30 DVRTCLOS OF LG INT W/O PERFORATION OR AB 05/27/2016 ALYSON GONZALEZ WIRE FENCE ERECTOR Ot N20.2 CALCULUS OF KIDNEY WITH CALCULUS OF URET 05/27/2016 ALYSON GONZALEZ APRN Ot N28.9 DISORDER OF KIDNEY AND URETER, UNSPECIFI 05/27/2016 ALYSON GONZALEZ APRN Ot R10.31 RIGHT LOWER QUADRANT PAIN 05/27/2016 ALYSON GONZALEZ APRN Ot Z79.82 WALL INSULATION SPRAYER (CURRENT) USE OF ASPIRIN 05/27/2016 ALYSON GONZALEZ APRN Ot Z79.899 OTHER USP (CURRENT) DRUG THERAPY 05/27/2016 ALYSON GONZALEZ APRN Ot Z90.49 ACQUIRED ABSENCE OF OTHER SPECIFIED PART 05/29/2016 JOSE GODDARD MD Ot I10 ESSENTIAL (PRIMARY) HYPERTENSION 05/29/2016 JOSE GODDARD MD T Ot K59.00 CONSTIPATION, UNSPECIFIED 05/29/2016 JOSE GODDARD MD Ot N17.9 ACUTE KIDNEY FAILURE, UNSPECIFIED 05/29/2016 JOSE GODDARD MD Ot N20.0 CALCULUS OF KIDNEY 05/29/2016 JOSE GODDARD MD T Ot R10.84 GENERALIZED ABDOMINAL PAIN 05/29/2016 JOSE GODDARD MD Ot R35.0 FREQUENCY OF MICTURITION 05/29/2016 JOSE GODDARD MD T Ot Z79.82 WALL INSULATION SPRAYER (CURRENT) USE OF ASPIRIN 05/29/2016 JOSE GODDARD MD T Ot Z79.899 OTHER WALL INSULATION SPRAYER (CURRENT) DRUG THERAPY Procedures Encounters ACCT No. Visit Date/Time Discharge Status Pt. Type Provider Facility Loc./Unit Complaint [id number] 05/28/2016 16:33:00 2016 19:48:00 DIS Outpatient JOSE GODDARD MD [facility] ER BACK,KIDNEY PAIN [id number] 05/25/2016 18:36:00 2016 20:47:00 DIS Emergency ALYSON GONZALEZ APRN [facility] ER FLANK PAIN [id number] 04/17/2016 10:56:00 2016 21:47:00 DIS Outpatient EVANGELIST AMAYA MD [facility] CATH CP,SOB,ABNORMAL STRESS TEST,CAD [id number] 02/10/2016 12:42:00 2015 15:40:00 DIS Emergency TOY YEUNG MD [facility] ER R SIDE BACK PAIN [id number] 08/10/2015 06:10:00 2015 15:39:00 DIS Outpatient RYAN LEWIS MD [facility] PREOP [id number] 02/21/2015 12:53:00 2014 13:52:00 DIS Outpatient MP RAMEY DO [facility] REHAB [id number] 11/02/2014 09:31:00 2014 23:59:59 CLS Outpatient MP RAMEY DO [facility] RAD [id number] 09/09/2014 09:10:00 2014 23:59:59 CLS Outpatient ABIMBOLA ANTONIO [facility] CARD [id number] 11/10/2013 10:58:00 2013 23:59:59 CLS Outpatient [id number] 07/12/2013 14:44:00 2013 23:59:59 CLS Outpatient [id number] 06/23/2013 12:47:00 2013 13:35:00 DIS Outpatient [id number] 02/03/2013 07:56:00 2012 23:59:59 CLS Outpatient [id number] 07/31/2012 08:22:00 2012 23:59:59 CLS Outpatient [id number] 07/31/2012 08:11:00 2012 12:00:00 DIS Outpatient [id number] 07/30/2012 07:49:00 2012 23:59:59 CLS Outpatient [id number] 04/08/2016 07:32:00 ACT Outpatient ABIMBOLA JUAREZ [facility] CARD CAD,CHEST PAIN,HTN,SOB [id number] 03/26/2016 09:57:00 ACT Outpatient ABIMBOLA JUAREZ [facility] CARD CAD,CHEST PAIN,HTN,SOB [id number] 08/11/2015 07:50:00 ACT Outpatient RYAN LEWIS MD [facility] [id number] 10/31/2014 07:54:00 Document Registration
[2016-06-10 20:37] LABS: STONE RISK AMMONIUM 25 mEq/24hr (14-62); STONE RISK BRUSHITE 0.11 (< 2.00); STONE RISK CA OXALATE 1.22 (< 2.00); STONE RISK CALCIUM 106 mg/day (< 250); STONE RISK CITRATE 236 mg/day (> 320); STONE RISK CREATININE 1234 mg/day (800-2000); STONE RISK MAGNESIUM 103 mg/day (> 60); STONE RISK OXALATE 42 mg/day (< 45); STONE RISK PH 5.1 (5.5-7.0); STONE RISK PHOSPHOROUS 806 mg/day (< 1100); STONE RISK POTASSIUM 33 mEq/24hr (19-135); STONE RISK SODIUM 95 mEq/24hr (< 200); STONE RISK SODIUM URATES 0.16 (< 2.00); STONE RISK STRUVITE 0.01 (< 75.00); STONE RISK SULFITE 13 mmol/day (< 30); STONE RISK TOTAL VOLUME 1.92 L/day (> 2.00); STONE RISK URIC ACID 198 mg/day (< 700); STONE RISK URIC ACID SAT 1.49 (< 2.00)
== END 2016-09-02 | disposition home or self-care (01) ==
LOC: LAB 08:01
PROVIDERS: ATTEND Urology
DX: N20.9 Urinary calculus, unspecified (principal)
CPT/HCPCS: 82140; 82340; 82507; 82570; 83735; 83945; 83986; 84105; 84133; 84300; 84392; 84560

== ENCOUNTER 2016-06-20 09:00 | Outpatient (CLI) | payer MEDICARE, OTHER ==
[~2016-06-20] VITALS: Ht 163.8 cm; Wt 102.1 kg
== END 2016-06-20 09:38 ==
LOC: PREOP 09:00
PROVIDERS: ATTEND Internal Medicine
DX: Z01.818 Encounter for other preprocedural examination (principal); Z12.11 Encounter for screening for malignant neoplasm of colon; Z86.010 Personal history of colon polyps

== ENCOUNTER 2016-06-21 06:46 | Day surgery (SDC) | payer MEDICARE, OTHER ==
[~2016-06-21] VITALS: Ht 163.8 cm; Wt 102.1 kg
[2016-06-21] MEDS ORDERED: 1/2 NS IV SOLUTION 1,000 ML IV STA (06:54)
[2016-06-21] MEDS ORDERED: LIDOCAINE JELLY 2% (XYLOCAINE) 5 ML TUBE MM PRN (07:00)
[2016-06-21] MEDS ORDERED: NALOXONE 0.4 MG/ML 1 ML (NARCAN) VIAL IVP PRN (07:00)
[2016-06-21] MEDS ORDERED: FLUMAZENIL (ROMAZICON) 0.1 MG/ML 5 ML VIAL INJ PRN (07:00)
--- NOTE | 2016-06-21 07:02 | HISTORY AND PHYSICAL ---
DICTATING PHYSICIAN: Dr. Giron DATE OF ADMISSION: 06/21/2016 Mr. Antoine is a 76-year-old white male who presented to my office on 06/03 with several medical issues. He is still having some intermittent right flank pain with known right ureterolithiasis. He had been back to the emergency room and we had referred him to Dr. Donahue for which he has an appointment tomorrow. He was given some more pain medication. A repeat plain x-ray did not reveal a kidney stone. His creatinine was slightly higher at 1.9 and he was advised to discontinue nonsteroidal therapy, which I concurred with. Today he reports no blood in his urine. He has had no dysuria and he is feeling better. He has been straining his urine and has retrieved a few small fragments. He has a history of known nephrolithiasis with calcium containing stones and has undergone stone analysis in the past. He admits to not drinking enough water. He denies melena or bright red blood per rectum and has had no bowel habit change. He does have a past history of colon polyps and it has been 6 years since his last colonoscopy. He had been tentatively set up for June 21 for colonoscopy. He denies chills, fever or night sweats and since his emergency room visit yesterday afternoon has had no recurrence of flank pain. We did repeat a UA which reveals that the specific gravity still elevated at 1.03. He has rare red cells, no white cells or bacteria and no casts are noted. He had traumatized skin tag in the right groin that has been rubbing. He underwent cryotherapy and a Band-Aid was applied. PHYSICAL EXAMINATION: CHEST: Clear. CV: Revealed a regular rate and rhythm without murmur, S3 or S4. Blood pressure was 136/84. ABDOMEN: Soft, supple without masses, organomegaly or tenderness. He had no flank pain to palpation. Bowel sounds were positive. No murmurs or bruits were noted. EXTREMITIES: Reveal no cyanosis, clubbing, or edema. ASSESSMENT: Right-sided ureterolithiasis, possible stone passage. He has had several visits to the emergency room. He is to keep his appointment with Dr. Donahue. We again discussed the importance of this increase fluid intake with strategies for achieving 6 to 8 glasses of fluid daily. Prep instructions with split dose Colyte were given as long as there is passage by the June 21 and he is not having ongoing flank pain. Questions were answered. This will be a surveillance colonoscopy due to his past history of colon polyps. He has a regular follow-up appointment in July as he has history of coronary artery disease. Should add that he denies any problems increased dyspnea on exertion. He has had a recent stress test that revealed what appeared to be some ischemic change but cardiac catheterization revealed no evidence for coronary blockage. Job ID: [id number] Dictated Date: 06/09/2016 12:21:00 Experimental Aircraft Mechanic Date: 06/09/2016 14:16:35/moses
[2016-06-21 07:14] VITALS: BP 157/88
--- NOTE | 2016-06-21 07:43 | Pre-Op Note & Conscious Sedat ---
Pre-Operative Progress Note H&P Reviewed The H&P was reviewed, patient examined and no changes noted. Date H&P Reviewed: Jun 21, 2016 Time H&P Reviewed: 07:43 Conscious Sedation Pre-Proced ASA Class: 2 Airway Mallampati Classification: (teller appropriate class) I. II. III, IV Lungs Heart ASA score ASA 1: a normal healthy patient ASA 2: a patient with a mild systemic disease (mid diabetes, controlled hypertension, obesity ASA 3: a patient with a severe systemic disease that limits activity (angina , COPD, prior Myocardial infarction) ASA 4: a patient with an incapacitating disease that is a constant threat to life (CHF, renal failure) ASA 5: a moribund patient not expected to survive 24 hrs. (ruptured aneurysm) ASA 6: a declared brain patient whose organs are being harvested. For emergent operations, add the letter E after the classification Grade 3 Sedation Plan: Analgesia, Amnesia, Plan communicated to team members, Discussed options with patient/fam, Discussed risks with patient/fam Note The patient is an appropriate candidate to undergo the planned procedure, sedation, and anesthesia. The patient immediately re-assessed prior to indication. RYAN LEWIS MD Jun 21, 2016 07:43
[2016-06-21] MEDS ORDERED: fentaNYL INJECTION 100 MCG/2 ML AMP ONE ×2 (07:55→08:12)
[2016-06-21] MEDS ORDERED: MIDAZOLAM 2 MG/2 ML (VERSED) VIAL ONE ×3 (07:55→08:21)
[2016-06-21] MEDS ORDERED: LIDOCAINE JELLY 2% (XYLOCAINE) 5 ML TUBE ONE (07:56)
[2016-06-21] MEDS: fentaNYL INJECTION 100 MCG/2 ML AMP IVP PRN ×4 (07:58→08:21)
[2016-06-21] MEDS: MIDAZOLAM 2 MG/2 ML (VERSED) VIAL IVP PRN ×4 (08:00→08:30)
[2016-06-21 08:50] VITALS: BP 123/76
[2016-06-21 09:20] VITALS: BP 141/92
[2016-06-21 10:00] VITALS: BP 141/92
--- NOTE | 2016-06-23 14:26 | PROCEDURE REPORT ---
PROCEDURE PHYSICIAN: RYAN LEWIS DATE OF PROCEDURE: 06/21/2016 INDICATION FOR THE PROCEDURE: Surveillance colonoscopy due to a history of colon polyps. PROCEDURE: The patient was placed in left lateral decubitus position. Prior to undergoing colonoscopy, digital rectal evaluation was performed. Anal sphincter tone was normal and the perianal reflex was intact. The prostate is mild to moderately enlarged, anodular and nontender to digital inspection. No other abnormalities were noted to digital inspection of the anal canal or distal rectal vault. FINDINGS: There no evidence for internal or external hemorrhoids. The rectum was unremarkable. There were a moderate to severe number of small to medium size sigmoid diverticulum present, without evidence for diverticulitis. No other sigmoid colonic abnormalities were appreciated. A 4 mm diminutive mid descending colonic polyp was present. It was photographed, biopsied and ablated, with no subsequent blood loss with hot forceps. No descending colonic abnormalities were noted. The splenic flexure and transverse colon, hepatic flexure was unremarkable. The ascending colon was unremarkable. On the upper lip of the ileocecal valve was another 6 mm adenomas appearing polyp that was photographed, biopsied and ablated, with no subsequent blood loss. The cecum of the colon was unremarkable. ASSESSMENT: 1. Severe diverticular disease confined to the sigmoid colon was present, without evidence for diverticulitis. 2. Mild BPH on digital inspection of the prostate is present. 3. Two diminutive polyps removed via hot forceps; one from the mid descending colon the other one from the upper lip of the ileocecal valve. As long as there are no surprises on histopathology report, considering this patient's severe diverticular disease and age, we will not be advocating future surveillance colonoscopy. Job ID: [id number] Dictated Date: 06/23/2016 12:48:14 Design Center Consultant Date: 06/23/2016 14:18:46 / [facility]
== END 2016-06-21 10:00 | disposition home or self-care (01) ==
LOC: ENDO 06:46
PROVIDERS: ATTEND Internal Medicine
DX: Z12.11 Encounter for screening for malignant neoplasm of colon (principal); D12.0 Benign neoplasm of cecum; D12.4 Benign neoplasm of descending colon; N40.0 Benign prostatic hyperplasia without lower urinary tract symptoms; K57.30 Diverticulosis of large intestine without perforation or abscess without bleeding
CPT/HCPCS: 88305

== ENCOUNTER → 2016-12-23 | Outpatient (CLI) | payer MEDICARE, OTHER ==
[~2016-12-23] VITALS: Ht 167.6 cm; Wt 99.3 kg
[~2016-12-23] MED LIST changes: +CATHETER FLUSH 10 ML SYR IV PRN; +REGADENOSON 0.4 MG/5 ML SYR (LEXISCAN) IV ONE
[2016-12-23 09:40] VITALS: BP 181/101
--- NOTE | 2016-12-23 12:01 | STRESS TEST ---
DATE OF SERVICE: 12/23/2016 LEXISCAN MYOVIEW STRESS TEST REPORT INDICATION: Coronary artery disease. FINDINGS: Baseline heart rate is 80, baseline blood pressure 180/100. Baseline EKG is sinus rhythm with no ischemic changes. SUMMARY: The patient was injected with 10.44 mCi of technetium-99 Myoview and the resting images were obtained. Then, the patient received 0.4 mg of Lexiscan followed by 31.7 mCi of technetium-99 Myoview. Throughout the test, there were no EKG changes. The resting and stress images were reviewed and compared in the short axis, horizontal long axis, and vertical long axis views. Review of the images showed good radiotracer uptake with no significant ischemia or infarction on SPECT images. SSS is 2, SDS 2, TID value 1.04. On the gated images, the left ventricle appeared to be normal size with normal contractility. Calculated ejection fraction 65%. CONCLUSION: 1. The patient tolerated Lexiscan well. 2. Diaphragmatic attenuation with no significant ischemia or infarction on SPECT images. 3. Normal left ventricular size with normal contractility. Calculated ejection fraction 65%. Job ID: [id number] DocumentID: [id number] Dictated Date: 12/23/2016 11:15:34 Purchasing Director Date: 12/23/2016 11:56:01 Dictated By: EVANGELIST AMAYA MD
== END ==
LOC: CARD 07:55
PROVIDERS: ATTEND Internal Medicine Cardiovascular Disease
DX: I25.10 Atherosclerotic heart disease of native coronary artery without angina pectoris (principal); E07.89 Other specified disorders of thyroid; I10 Essential (primary) hypertension; E78.2 Mixed hyperlipidemia
CPT/HCPCS: 78452; 93017

== ENCOUNTER → 2016-12-26 | Outpatient (CLI) | payer MEDICARE, OTHER ==
[~2016-12-26] MED LIST changes: -CATHETER FLUSH 10 ML SYR IV PRN; -REGADENOSON 0.4 MG/5 ML SYR (LEXISCAN) IV ONE
--- NOTE | 2016-12-26 21:38 | Diagnostic Imaging Report ---
3 views of the cervical spine. INDICATION: Neck pain. FINDINGS: There is satisfactory alignment at the posterior spinal line. Straightening of the cervical curvature could relate to muscle spasm or positional. The vertebral body heights are preserved. There is prominent disc height loss at C5/C6, and at C6/C7 levels. There are prominent anterior osteophytes at C4/C5 and C6/C7 and small posterior osteophytes at C5/C6 are suggested. The alignment of the lateral masses of C1 and C2 is satisfactory. There are also degenerative changes in the upper cervical spine facet joints. IMPRESSION: Disc degenerative changes are seen in the mid to lower cervical spine. Dictated by: Dictated on workstation # [id number]
--- NOTE | 2016-12-26 22:14 | Diagnostic Imaging Report ---
EXAMINATION: Two views of the thoracic spine. INDICATION: Back pain. FINDINGS: There is an ossification of the anterior longitudinal ligament seen in the thoracic spine involving most thoracic spine levels. The vertebral body heights are preserved. The alignment of the posterior spinal line is satisfactory. There is right convexity scoliosis seen in the upper thoracic spine. The paraspinal soft tissues appear unremarkable. IMPRESSION: Right convexed scoliosis centered in the upper thoracic spine. Ossification of the anterior longitudinal ligament. Dictated by: Dictated on workstation # [id number]
== END ==
LOC: RAD 14:36
PROVIDERS: ATTEND Chiropractor Sports Physician
DX: M50.322 Other cervical disc degeneration at C5-C6 level (principal); M41.24 Other idiopathic scoliosis, thoracic region
CPT/HCPCS: 72040; 72072

== ENCOUNTER → 2017-09-18 | Outpatient (CLI) | payer MEDICARE, OTHER ==
[~2017-09-18] MED LIST changes: +IOHEXOL 350 MG/ML 100 ML (OMNIPAQUE 350) VIAL IV ONE; +METO-387 PO; +NS 250 ML (IVPB) BAG IV ONE
--- NOTE | 2017-09-18 12:33 | Diagnostic Imaging Report ---
PROCEDURE: CT angiography of the head with and without contrast. TECHNIQUE: Noncontrast CT of the head was obtained. Subsequently, after intravenous administration of contrast, thin section axial CT angiography of the head was performed. Source data was reformatted into multiple MIP reformats. Delayed postcontrast acquisition of the head was also acquired. INDICATION: Weakness and headache. COMPARISON: There are no prior studies available for comparison. FINDINGS: On the pre intravenous contrast series, there is no mass, shift of the midline, or hemorrhage to indicate an acute abnormality. There is no sign of an asymmetric hyperdense vessel. The ventricles are not abnormally dilated. There are vague areas of low density in the periventricular white matter bilaterally. These findings are nonspecific but may be secondary to encephalomalacia from microvascular ischemia. Cortical atrophy is also seen. The degree of atrophy is consistent with the patient's age. The bone windows show no sign of a fracture or of a destructive lesion. The orbits are symmetrical and within normal limits. The sinuses where visualized are unremarkable. On the postcontrast sequence, there is no evidence for an aneurysm of the [place]. There is no defect within the intracranial arterial circulation to suggest a thrombus either. There is no hemodynamically significant stenosis identified either. The vertebrobasilar system is generally unremarkable. The left vertebral artery is dominant. There is no abnormal enhancement to indicate a neoplastic or infectious process. IMPRESSION: 1. There is no evidence for an acute intracranial abnormality. If clinical concern regarding an acute abnormality persists, then MRI would be recommended for further study. 2. There is no aneurysm or hemodynamically significant stenosis of the intracranial circulation. The left vertebral artery is dominant. 3. There are senescent changes including cortical atrophy and periventricular encephalomalacia. Dictated by: Dictated on workstation # [id number]
== END ==
LOC: RAD 10:59
PROVIDERS: ATTEND Internal Medicine Cardiovascular Disease
DX: G31.9 Degenerative disease of nervous system, unspecified (principal); G93.89 Other specified disorders of brain; I25.10 Atherosclerotic heart disease of native coronary artery without angina pectoris; I10 Essential (primary) hypertension; E78.2 Mixed hyperlipidemia; E66.8 Other obesity; R53.1 Weakness; R07.89 Other chest pain; R06.02 Shortness of breath
CPT/HCPCS: 70496

== ENCOUNTER → 2018-01-05 | Outpatient (CLI) | payer MEDICARE, OTHER ==
[~2018-01-05] MED LIST changes: -IOHEXOL 350 MG/ML 100 ML (OMNIPAQUE 350) VIAL IV ONE; -NS 250 ML (IVPB) BAG IV ONE
--- NOTE | 2018-01-05 16:34 | Diagnostic Imaging Report ---
PROCEDURE: MR imaging of the brain without contrast. TECHNIQUE: Multiplanar, multisequence MR imaging of the brain was performed without contrast. INDICATION: Headache behind left eye. Family history of brain aneurysms. Personal history of blood clot. COMPARISON: CTA head without and with IV contrast 09/18/2017. FINDINGS: Moderate generalized cerebral and cerebellar parenchymal volume loss. Mild nonspecific T2 hyperintensities in the supratentorial white matter. No restricted water diffusion or hemosiderin deposition. Normal morphology including the major midline structures, sella, posterior fossa and cerebellopontine angle. Postoperative changes in the globes. No hydrocephalus or extra-axial fluid collections. Normal intracranial flow voids. The paranasal sinuses and mastoids are clear. Normal bone marrow signal. IMPRESSION: 1. No acute intracranial MRI findings. 2. Age-appropriate parenchymal volume loss and chronic small vessel ischemic change. Dictated by: Dictated on workstation # [id number]
--- NOTE | 2018-01-05 16:34 | Diagnostic Imaging Report ---
PROCEDURE: MR venogram without contrast. MR angiography of the brain without the use of contrast. TECHNIQUE: 3D [id number] non contrast enhanced MR angiography of the head was performed. Source data was reformatted into rotating MIP projections. INDICATION: Left-sided headache. Pain behind left eye. COMPARISON: CTA head without and with IV contrast 09/18/2017. MRI brain without and with IV contrast 01/05/2018. FINDINGS: Left dominant dural venous sinus drainage. 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 There are no secondary findings of a venous infarct on today's MRI examination. The straight sinus and vein of [place] are patent. The internal cerebral veins are grossly patent. IMPRESSION: Dominant left dural venous sinus drainage with no findings suspicious for dural venous sinus thrombosis. There are no secondary findings of a venous infarct on today's comparison MRI. Dictated by: Dictated on workstation # [id number]
== END ==
LOC: RAD 15:20
PROVIDERS: ATTEND Psychiatry & Neurology Neurology
DX: G08 Intracranial and intraspinal phlebitis and thrombophlebitis (principal); I67.82 Cerebral ischemia; Z84.89 Family history of other specified conditions
CPT/HCPCS: 70544; 70551

== ENCOUNTER 2018-06-30 19:42 | Emergency (ER) | payer MEDICARE, OTHER ==
[~2018-06-30] VITALS: Ht 162.6 cm; Wt 99.8 kg
[2018-06-30] MEDS ORDERED: cefTRIAXone FOR IV USE 1,000 MG in WATER (STERILE) FOR INJECTION 10 ML IV ONE (20:15)
[2018-06-30] MEDS ORDERED: ACETAMINOPHEN 500 MG TAB (TYLENOL) PO PRN (20:15)
[2018-06-30] MEDS ORDERED: AZITHROMYCIN INJECTION 500 MG in NS (IVPB) 250 ML IV ONE (20:15)
[2018-06-30] MEDS ORDERED: ACETAMINOPHEN 500 MG TAB (TYLENOL) ONE (20:42)
[2018-06-30] MEDS ORDERED: OSELTAMIVIR 75 MG (TAMIFLU) CAPSULE PO ONE (20:45)
[2018-06-30 20:57] LABS: BASOPHILS % (AUTO) 0 % (0-10); EOSINOPHILS # (AUTO) 0.1 10^3/uL (0.0-0.3); EOSINOPHILS % (AUTO) 2 % (0-10); HEMATOCRIT 41 % (40-54); LYMPHOCYTES # (AUTO) 1.3 X 10^3 (1.0-4.0); LYMPHOCYTES % (AUTO) 23 % (12-44); MEAN CORPUSCULAR HEMOGLOBIN 33 PG (25-34); MEAN CORPUSCULAR HGB CONC 35 G/DL (32-36); MEAN CORPUSCULAR VOLUME 94 FL (80-99); MEAN PLATELET VOLUME 8.9 FL (7.4-10.4); MONOCYTES # (AUTO) 0.8 X 10^3 (0.0-1.0); MONOCYTES % (AUTO) 15 % (0-12); NEUTROPHILS # (AUTO) 3.5 X 10^3 (1.8-7.8); NEUTROPHILS % (AUTO) 61 % (42-75); PLATELET COUNT 260 10^3/uL (130-400); RED CELL DISTRIBUTION WIDTH 13.6 % (10.0-14.5); WHITE BLOOD COUNT 5.7 10^3/uL (4.3-11.0)
[2018-06-30 21:10] LABS: INR 0.9 (0.8-1.4); PROTHROMBIN TIME PATIENT 12.8 SEC (12.2-14.7)
[2018-06-30 21:28] LABS: ALANINE AMINOTRANSFERASE 32 U/L (0-55); ALBUMIN 4.4 GM/DL (3.2-4.5); ALKALINE PHOSPHATASE 69 U/L (40-136); BILIRUBIN,TOTAL 0.5 MG/DL (0.1-1.0); BUN/CREATININE RATIO 14; CALCIUM 9.5 MG/DL (8.5-10.1); CARBON DIOXIDE 20 MMOL/L (21-32); CHLORIDE 106 MMOL/L (98-107); CREATININE SERUM 1.13 MG/DL (0.60-1.30); GFR ESTIMATED > 60; GLUCOSE 87 MG/DL (70-105); POTASSIUM 4.1 MMOL/L (3.6-5.0); SODIUM 137 MMOL/L (135-145); TOTAL PROTEIN 6.5 GM/DL (6.4-8.2)
[2018-06-30] MEDS ORDERED: BENZ100C18 PO (21:39)
--- NOTE | 2018-06-30 21:39 | ED Respiratory ---
General Stated Complaint: FEVER / COUGH Source: patient (DIFFICULT TO KEEP ON SUBJECT--TALKS NON-STOP AT LENGTH) History of Present Illness Date Seen by Provider: Jun 30, 2018 Time Seen by Provider: 20:06 Initial Comments PT ARRIVES VIA POV FROM HOME STATES HE BEGAN GETTING SICK LAST NIGHT/EARLY THIS AM C/O FEVER OF 101 SINCE LAST PM/THIS AM--TOOK 2 TYLENOL AT 1900, OTHERWISE HAS NOT TAKEN ANYTHING ELSE FOR SYMPTOMS C/O SORE THROAT C/O NASAL CONGESTION--STATES HE "CAN'T BREATHE" THROUGH HIS NOSE--BUT IS NOT ACTUALLY SHORT OF BREATH C/O COUGH, OCCASIONALLY PRODUCTIVE OF CLEAR TO YELLOW SPUTUM STATES HE HAS BEEN TAKING PHENERGAN WITH CODEINE AND IT HELPS, AND HAS PLENTY OF IT AT HOME NO SHORTNESS OF BREATH NO CHEST PAIN PCP: DR. LEWIS LPN CARE MANAGER: DR. AMAYA Allergies and Home Medications Allergies Coded Allergies: Penicillins (Verified Allergy, Unknown, 06/20/16) ezetimibe (Verified Allergy, Unknown, 06/20/16) iodine (Verified Allergy, Unknown, 06/20/16) simvastatin (Verified Allergy, Unknown, 06/20/16) Home Medications Allopurinol 300 Mg Tab, 300 MG PO DAILY, (Reported) Benzonatate 100 Mg Capsule, 1-2 TAB PO TID Prescribed by: MALU BRADSHAW on 06/30/182138 Metoprolol Succinate 25 Mg Tab.er.24h, 25 MG PO DAILY PRN, (Reported) Multivits,Ca,Min/Iron/FA/Lycop 1 Each Tablet, 1 TAB PO DAILY, (Reported) Patient Home Medication List Home Medication List Reviewed: Yes Review of Systems Review of Systems Constitutional: see HPI, fever EENTM: nose congestion, throat pain Respiratory: see HPI, cough; No short of breath, No wheezing Cardiovascular: no symptoms reported; No chest pain, No edema, No palpitations Gastrointestinal: no symptoms reported Genitourinary: no symptoms reported Musculoskeletal: no symptoms reported Skin: no symptoms reported Psychiatric/Neurological: No Symptoms Reported Hematologic/Lymphatic: No Symptoms Reported Immunological/Allergic: no symptoms reported Past Xrhonhj-Lnoclr-Mqdkfq Hx Patient Social History Alcohol Use: Regular Use Alcohol Beverage of Choice: Scotch, Wine Recreational Drug Use: No Smoking Status: Former Smoker (QUIT 30 YEARS AGO) Type Used: Cigarettes Former Smoker, Quit: Apr 17, 1970 2nd Hand Smoke Exposure: No Recent Foreign Travel: No Contact w/Someone Who Travel: No Recent Hopitalizations: No Immunizations Up To Date Date of Pneumonia Vaccine: Dec 18, 2015 Date of Influenza Vaccine: Dec 18, 2015 Seasonal Allergies Seasonal Allergies: No Past Medical History Surgeries: Yes (L THR, BILAT ROTATOR CUFF, L CTR; CARDIAC CATHS WITH STENTS X 6 ; UVULA SURGERY) Cardiac, Coronary Stent, Gallbladder, Orthopedic, Tonsillectomy Respiratory: Yes Sleep Apnea Currently Using CPAP: Yes Cardiac: Yes (TAKES BP MEDICATIONS "WHEN HE NEEDS TO" ) Chronic Edema/Swelling, Coronary Artery Disease, High Cholesterol, Hypertension Neurological: No Reproductive Disorders: No Sexually Transmitted Disease: No HIV/AIDS: No Genitourinary: Yes Kidney Stones Gastrointestinal: Yes (S/P JUHI) Gastroesophageal Reflux, Polyps, Gall Bladder Disease, Irritable Bowel Musculoskeletal: Yes (CHRONIC NECK/BACK AND BILATERAL KNEE PAIN ) Arthritis, Chronic Back Pain, Gout Endocrine: No HEENT: Yes (UVULECTOMY) Tonsilitis Loss of Vision: Bilateral Hearing Impairment: Denies Cancer: No Psychosocial: No Integumentary: No Blood Disorders: No Adverse Reaction/Blood Tranf: No (N/A) Family Medical History No Pertinent Family Hx Physical Exam Vital Signs - First Documented 06/30/18 06/30/18 20:05 22:27 Temp 99.4 Pulse 85 Resp 18 B/P (MAP) 150/79 (102) Pulse Ox 98 O2 Delivery Room Air Capillary Refill : Height: 5'4.00" Weight: 215lbs. 0.0oz. 97.541528bg; 35.4 BMI Method:Stated General Appearance: WD/WN, no apparent distress, other (NO COUGH NOTED, TALKS AT GREAT LENGTH IN FULL SENTENCES. DOES NOT APPEAR TO BE IN ANY DISCOMFORT OR DISTRESS) HEENT: PERRL/EOMI, other (NASAL CONGESTION, CLEAR POST NASAL DRAINAGE) Neck: non-tender, full range of motion, supple, normal inspection Respiratory: normal breath sounds, no respiratory distress, no accessory muscle use; No rales, No rhonchi, No wheezing Cardiovascular: normal peripheral pulses, regular rate, rhythm, no JVD, no murmur Gastrointestinal: normal bowel sounds, non tender, soft Extremities: normal range of motion, non-tender, normal inspection, no calf tenderness, normal capillary refill, pedal edema (1-2+ BILATERALLY) Neurologic/Psychiatric: feeder/folder II-XII nml as tested, no motor/sensory deficits, alert, normal mood/affect, oriented x 3 Skin: normal color, warm/dry Focused Exam Lactate Level 06/30/18 20:41: Lactic Acid Level 1.26 Lactic Acid Level Laboratory Tests Test 06/30/18 20:41 Lactic Acid Level 1.26 MMOL/L (0.50-2.00) Progress/Results/Core Measures Suspected Sepsis SIRS Temperature: Pulse: Respiratory Rate: Laboratory Tests 06/30/18 20:41: White Blood Count 5.7 Blood Pressure / Mean: 06/30/18 20:41: Lactic Acid Level 1.26 Laboratory Tests 06/30/18 20:41: Creatinine 1.13, INR Comment 0.9, Platelet Count 260, Total Bilirubin 0.5 Results/Orders Lab Results Laboratory Tests Test 06/30/18 20:41 06/30/18 22:00 Range/Units White Blood Count 5.7 4.3-11.0 10^3/uL Red Blood Count 4.30 L 4.35-5.85 10^6/uL Hemoglobin 14.0 13.3-17.7 G/DL Hematocrit 41 40-54 % Mean Corpuscular Volume 94 80-99 FL Mean Corpuscular Hemoglobin 33 25-34 PG Mean Corpuscular Hemoglobin Concent 35 32-36 G/DL Red Cell Distribution Width 13.6 10.0-14.5 % Platelet Count 260 130-400 10^3/uL Mean Platelet Volume 8.9 7.4-10.4 FL Neutrophils (%) (Auto) 61 42-75 % Lymphocytes (%) (Auto) 23 12-44 % Monocytes (%) (Auto) 15 H 0-12 % Eosinophils (%) (Auto) 2 0-10 % Basophils (%) (Auto) 0 0-10 % Neutrophils # (Auto) 3.5 1.8-7.8 X 10^3 Lymphocytes # (Auto) 1.3 1.0-4.0 X 10^3 Monocytes # (Auto) 0.8 0.0-1.0 X 10^3 Eosinophils # (Auto) 0.1 0.0-0.3 10^3/uL Basophils # (Auto) 0.0 0.0-0.1 10^3/uL Prothrombin Time 12.8 12.2-14.7 SEC INR Comment 0.9 0.8-1.4 Activated Partial Thromboplast Time 33 24-35 SEC Sodium Level 137 135-145 MMOL/L Potassium Level 4.1 3.6-5.0 MMOL/L Chloride Level 106 98-107 MMOL/L Carbon Dioxide Level 20 L 21-32 MMOL/L Anion Gap 11 5-14 MMOL/L Blood Urea Nitrogen 16 7-18 MG/DL Creatinine 1.13 0.60-1.30 MG/DL Estimat Glomerular Filtration Rate > 60 BUN/Creatinine Ratio 14 Glucose Level 87 70-105 MG/DL Lactic Acid Level 1.26 0.50-2.00 MMOL/L Calcium Level 9.5 8.5-10.1 MG/DL Corrected Calcium 9.2 8.5-10.1 MG/DL Total Bilirubin 0.5 0.1-1.0 MG/DL Aspartate Amino Transf (AST/SGOT) 32 5-34 U/L Alanine Aminotransferase (ALT/SGPT) 32 0-55 U/L Alkaline Phosphatase 69 40-136 U/L Total Protein 6.5 6.4-8.2 GM/DL Albumin 4.4 3.2-4.5 GM/DL Urine Color YELLOW Urine Clarity CLEAR Urine pH 5 5-9 Urine Specific [place] 1.010 L 1.016-1.022 Urine Protein NEGATIVE NEGATIVE Urine Glucose (UA) NEGATIVE NEGATIVE Urine Ketones NEGATIVE NEGATIVE Urine Nitrite NEGATIVE NEGATIVE Urine Bilirubin NEGATIVE NEGATIVE Urine Urobilinogen NORMAL NORMAL MG/DL Urine Leukocyte Esterase NEGATIVE NEGATIVE Urine RBC (Auto) 1+ H NEGATIVE Urine RBC RARE /HPF Urine WBC RARE /HPF Urine Crystals NONE /LPF Urine Bacteria NEGATIVE /HPF Urine Casts NONE /LPF Urine Mucus NEGATIVE /LPF Urine Culture Indicated NO Micro Results Microbiology 06/30/18 Influenza Types A,B Antigen (ELVIS) - Final, Complete My Orders Orders - MALU BRADSHAW DO Cbc With Automated Diff (06/30/18 20:06) Comprehensive Metabolic Panel (06/30/18 20:06) Blood Culture (06/30/18 20:06) Urinalysis (06/30/18 20:06) Urine Culture (06/30/18 20:06) Protime With Inr (06/30/18 20:06) Partial Thromboplastin Time (06/30/18 20:06) Chest 1 View, Ap/Pa Only (06/30/18 20:06) Acetaminophen Tablet (Tylenol Tablet) (06/30/18 20:15) Ed Iv/Invasive Line Start (06/30/18 20:06) Ed Iv/Invasive Line Start (06/30/18 20:06) Ekg Tracing (06/30/18 20:06) Vital Signs Adult Sepsis Patie Q15M (06/30/18 20:06) O2 (06/30/18 20:06) Remove Rings In Anticipation O (06/30/18 20:06) Lactic Acid Analyzer (06/30/18 20:06) Influenza A And B Antigens (06/30/18 20:06) Ceftriaxone For Iv Use (Rocephin For I (06/30/18 20:15) Azithromycin Injection (Zithromax Inject (06/30/18 20:15) Oseltamivir 75 Mg Capsule (Tamiflu 75 (06/30/18 20:45) Acetaminophen Tablet (Tylenol Tablet) (06/30/18 20:42) Rx-Oseltamivir Caps (Rx-Tamiflu Caps) (06/30/18 22:04) Medications Given in ED Current Medications Medications Dose Ordered Sig/Angy Route Start Time Stop Time Status Last Admin Dose Admin Acetaminophen 500 mg STK-MED ONCE .ROUTE 06/30/18 20:42 06/30/18 20:45 DC 06/30/18 21:04 500 MG Azithromycin 500 mg/Sodium Chloride 250 ml @ 250 mls/hr ONCE ONCE IV 06/30/18 20:15 06/30/18 21:14 DC 06/30/18 21:11 250 MLS/HR Ceftriaxone Sodium 1000 mg/ Sterile Water 10 ml @ 200 mls/hr ONCE ONCE IV 06/30/18 20:15 06/30/18 20:17 DC 06/30/18 21:13 200 MLS/HR Oseltamivir Phosphate 75 mg ONCE ONCE PO 06/30/18 20:45 06/30/18 20:46 DC 06/30/18 21:01 75 MG Vital Signs/I&O 06/30/18 06/30/18 06/30/18 20:05 20:05 22:27 Temp 99.4 98.9 Pulse 85 80 Resp 18 18 B/P (MAP) 150/79 (102) 133/70 (91) Pulse Ox 98 O2 Delivery Room Air Room Air Capillary Refill : Progress Note : Progress Note UNEVENTFUL ER STAY VITALS STABLE, O2 SATS IN UPPER 90'S NO SIGNIFICANT COUGH AND NO SHORTNESS OF BREATH DURING ER STAY ANTICIPATORY COURSE EXPLAINED TO PT ECG Initial ECG Impression Date: Jun 30, 2018 Initial ECG Impression Time: 20:32 Initial ECG Rate: 80 Initial ECG Rhythm: Normal Sinus Initial ECG Impression: Normal Diagnostic Imaging Comments CXR--MILD ATELECTASIS/SCARRING IN LEFT BASE, NO ACUTE PROCESS, PER RADIOLOGIST REPORT @ 2159 Reviewed: Reviewed by Me Departure Impression Primary Impression: Influenza B Disposition: HOME, SELF-CARE Condition: Stable Departure-Patient Inst. Referrals: RYAN LEWIS MD (PCP/Family) Primary Care Physician Patient Instructions: Flu, Adult (DC) Add. Discharge Instructions: LOTS OF CLEAR LIQUIDS--WATER, BROTH, JELLO, GATORADE TYLENOL 1 GRAM/ MOTRIN 800 MG 4 TIMES A DAY NEEDED FOR PAIN OR FEVER OVER 101 CONTINUE YOUR PROMETHAZINE + CODEINE NEEDED FOR COUGH TAKE TAMIFLU TWICE A DAY FOR 5 DAYS FOLLOW UP WITH YOUR DR IN 4-5 DAYS IF NO BETTER, RETURN TO ER IF WORSE Scripts Benzonatate (TESSALON PERLES) 100 Mg Capsule 1-2 TAB PO TID for Cough, #30 CAP Prov: MALU BRADSHAW DO 06/30/18 MALU BRADSHAW DO Jun 30, 2018 21:39
--- NOTE | 2018-06-30 21:40 | Diagnostic Imaging Report ---
Examination: Single AP view of the chest Indication: Fever and cough. Comparison: Multiple priors, most recent performed on 05/25/2016. Findings: There is mild left basilar atelectasis/scarring. The lungs are otherwise clear and the pulmonary vasculature is normal. No pneumothorax or large pleural effusion. The cardiomediastinal silhouette is unchanged. No acute osseous abnormality is identified. Impression: Mild left basilar atelectasis/scarring, otherwise no acute chest disease. No significant change from prior. Dictated by: Dictated on workstation # [id number]
[2018-06-30] MEDS ORDERED: RX-OSELTAMIVIR 75 MG (TAMIFLU) BOX OF 10 PO STA (22:04)
[2018-06-30 22:06] LABS: BILIRUBIN,URINE NEGATIVE (NEGATIVE); CLARITY,URINE CLEAR; COLOR,URINE YELLOW; GLUCOSE, URINE (UA) NEGATIVE (NEGATIVE); KETONES,URINE NEGATIVE (NEGATIVE); LEUKOCYTE ESTERASE ,URINE NEGATIVE (NEGATIVE); NITRITE,URINE NEGATIVE (NEGATIVE); PH,URINE 5 (5-9); PROTEIN,URINE NEGATIVE (NEGATIVE); UROBILINOGEN,URINE NORMAL (NORMAL)
[2018-06-30 22:27] VITALS: BP 133/70
[2018-06-30 22:30] LABS: BACTERIA,URINE NEGATIVE /HPF; RBC,URINE RARE /HPF; WBC,URINE RARE /HPF
[2018-07-01] MEDS ORDERED: ONDA4TAB10 PO (07:55)
== END 2018-06-30 22:28 | disposition home or self-care (01) ==
LOC: EDUNIT# 19:42 → ER 19:43
DX: J10.1 Influenza due to other identified influenza virus with other respiratory manifestations (principal); G47.30 Sleep apnea, unspecified; I25.10 Atherosclerotic heart disease of native coronary artery without angina pectoris; E78.00 Pure hypercholesterolemia, unspecified; I10 Essential (primary) hypertension; K21.9 Gastro-esophageal reflux disease without esophagitis; K58.9 Irritable bowel syndrome, unspecified; M10.9 Gout, unspecified; Z87.19 Personal history of other diseases of the digestive system; Z86.010 Personal history of colon polyps; Z87.442 Personal history of urinary calculi; Z88.0 Allergy status to penicillin; Z88.8 Allergy status to other drugs, medicaments and biological substances; Z91.041 Radiographic dye allergy status; Z87.891 Personal history of nicotine dependence; Z96.642 Presence of left artificial hip joint; Z95.5 Presence of coronary angioplasty implant and graft; Z90.89 Acquired absence of other organs
CPT/HCPCS: 36415; 71045; 80053; 81000; 83605; 85025; 85610; 85730; 87040; 87088; 87804; 93005

== ENCOUNTER 2018-07-01 06:21 | Emergency (ER) | payer MEDICARE, OTHER ==
[~2018-07-01] VITALS: Ht 162.6 cm; Wt 99.8 kg
[~2018-07-01 06:21] MED LIST changes: +BENZ100C18 PO
[2018-07-01] MEDS ORDERED: ONDANSETRON 4 MG (ZOFRAN) ORAL DISSOLVE TAB SL STA (06:39)
[2018-07-01] MEDS ORDERED: KETOROLAC 60 MG/2 ML VIAL IM STA (06:39)
[2018-07-01] MEDS ORDERED: OXYMETAZOLINE (AFRIN) 0.05% NA 15 ML BTL STA (06:39)
--- NOTE | 2018-07-01 07:43 | ED Cough/URI ---
General Chief Complaint: Cough/Cold/Flu Symptoms Stated Complaint: FLU Nursing Triage Note: TO ED FROM [facility], PT AMBULATORY IN TO ED FROM AMBULANCE. STATES HE "WOULDN'T BE ABLE TO DRIVE TO PHARMACY TO GET MEDICATIONS TODAY". PT D/C'D LAST NOC FROM ED. STATES AFTER HE LEFT HE "KEPT COUGHING AND THE COUGH SYRUP DIDN'T WORK". STATES HIS TEMP WAS 102 AT SOME POINT BUT DID NOT TAKE TYLENOL OR MOTRIN DIRECTED IN D/C ORDERS. PT WAS POSITIVE FOR FLU B LAST NOC DURING ER VISIT. Sepsis Screen: Possible Sepsis Risk Source: patient, EMS Exam Limitations: no limitations History of Present Illness Date Seen by Provider: Jul 01, 2018 Time Seen by Provider: 06:31 Initial Comments Patient here by EMS with report of overall not feeling well. Patient was here last night less than 12 hours ago and found to have influenza B. He had workup at that time including labs and chest x-ray which only found the influenza. Patient states that he was coughing all night long and overall not feeling well. He came in by ambulance because he did not think he did drive to the pharmacy today because he was not feeling well. He states that the cough medicine that he used overnight was not helping (Phenergan with codeine) and that he is having all over body aches. He has taken Tylenol 1000 mg a couple times throughout the night. Reports that he had a fever of 102 this morning but then started sweating after he took the Tylenol. Overall states he just does not feel well. Timing/Duration: constant, yesterday Severity/Quality: moderate, dry cough Modifying Factors: Worse With Coughing; Improves With Rest Associated Symptoms: cough, fever/chills, muscle aches, nasal congestion, nasal drainage, sore throat Allergies and Home Medications Allergies Coded Allergies: Penicillins (Verified Allergy, Unknown, 06/20/16) ezetimibe (Verified Allergy, Unknown, 06/20/16) iodine (Verified Allergy, Unknown, 06/20/16) simvastatin (Verified Allergy, Unknown, 06/20/16) Home Medications Allopurinol 300 Mg Tab, 300 MG PO DAILY, (Reported) Benzonatate 100 Mg Capsule, 1-2 TAB PO TID Prescribed by: MALU BRADSHAW on 06/30/18 5254 Metoprolol Succinate 25 Mg Tab.er.24h, 25 MG PO DAILY PRN, (Reported) Multivits,Ca,Min/Iron/FA/Lycop 1 Each Tablet, 1 TAB PO DAILY, (Reported) Patient Home Medication List Home Medication List Reviewed: Yes Review of Systems Review of Systems Constitutional: see HPI, chills, fever EENTM: see HPI Respiratory: see HPI; No dyspnea on exertion Cardiovascular: No chest pain, No edema Gastrointestinal: No abdominal pain, No nausea, No vomiting Genitourinary: no symptoms reported Musculoskeletal: No back pain; muscle pain; No neck pain Skin: no symptoms reported Psychiatric/Neurological: No Symptoms Reported Past Zqdjdgb-Ixhfjz-Rddvni Hx Past Med/Social Hx: Reviewed Nursing Past Med/Soc Hx Patient Social History Alcohol Use: Rarely Uses Number of Drinks Today: Alcohol Beverage of Choice: Scotch, Wine Recreational Drug Use: No Smoking Status: Former Smoker Former Smoker, Quit: Apr 17, 1970 2nd Hand Smoke Exposure: No Recent Foreign Travel: No Contact w/Someone Who Travel: No Recent Infectious Disease Expo: No Recent Hopitalizations: No Immunizations Up To Date Date of Pneumonia Vaccine: Dec 18, 2015 Date of Influenza Vaccine: Dec 18, 2015 Seasonal Allergies Seasonal Allergies: No Past Medical History Surgeries: Yes (L THR, BILAT ROTATOR CUFF, L CTR) Coronary Stent, Gallbladder, Orthopedic, Tonsillectomy Respiratory: Yes Sleep Apnea Currently Using CPAP: Yes Cardiac: Yes Coronary Artery Disease, High Cholesterol, Hypertension Neurological: No Reproductive Disorders: No Sexually Transmitted Disease: No HIV/AIDS: No Genitourinary: Yes Kidney Stones Gastrointestinal: Yes Gastroesophageal Reflux, Polyps, Irritable Bowel Musculoskeletal: Yes Arthritis, Chronic Back Pain Endocrine: No HEENT: No Loss of Vision: Bilateral Hearing Impairment: Denies Cancer: No Psychosocial: No Integumentary: No Blood Disorders: No Adverse Reaction/Blood Tranf: No (N/A) Family Medical History Reviewed Nursing Family Hx No Pertinent Family Hx Physical Exam Vital Signs - First Documented 07/01/18 06:25 Temp 99.2 Pulse 97 Resp 18 B/P (MAP) 180/95 (123) O2 Delivery Room Air Capillary Refill : Less Than 3 Seconds Height: 5'4.00" Weight: 220lbs. 0oz. [id number]; 35.4 BMI Method:Stated General Appearance: WD/WN, no apparent distress HEENT: PERRL/EOMI, pharyngeal erythema, other (moderate bilateral nasal congestion with clear rhinorrhea and moderate erythema) Neck: full range of motion, supple Respiratory: lungs clear, normal breath sounds Cardiovascular: regular rate, rhythm, no murmur Gastrointestinal: non tender, soft Extremities: non-tender, normal inspection Neurologic/Psychiatric: alert, oriented x 3 Skin: normal color, warm/dry Progress/Results/Core Measures Suspected Sepsis Recent Fever Within 48 Hours: Yes Infection Criteria Present: Documented Infection New/Unexplained Altered Menta: No Sepsis Screen: Possible Sepsis Risk SIRS Temperature:99.2 Pulse: 97 Respiratory Rate: 18 Blood Pressure 180 /95 Mean: 123 Results/Orders My Orders Orders - TOY YEUNG MD Ketorolac Injection (Toradol Injection) (07/01/18 06:39) Oxymetazoline 0.05% Nasal [place] (Afrin 0. (07/01/18 06:39) Ondansetron Oral Dissolve Tab (Zofran (07/01/18 06:39) Vital Signs/I&O 07/01/18 07/01/18 06:25 06:25 Temp 99.2 Pulse 97 Resp 18 B/P (MAP) 180/95 (123) O2 Delivery Room Air Capillary Refill : Less Than 3 Seconds Blood Pressure Mean: 123 Progress Note : Progress Note Seen and evaluated. I reviewed the labs and x-ray from last night. I spoke with provider that cared for him last night. Patient has prescription for Tessalon Perles. He does have go pack of the Tamiflu to complete his treatment. He did initiate treatment last night. Toradol 60 mg IM, Zofran 4 mg by mouth and Afrin nasal spray initiated now. Monitor patient. 0750: Overall feeling much better and feels like he can tolerate at home now. Discharge home with return precautions. Patient verbalize understanding instructions and agreement with plan. Departure Impression Primary Impression: Influenza B Disposition: 01 HOME, SELF-CARE Condition: Improved Departure-Patient Inst. Decision time for Depature: 07:52 Referrals: RYAN LEWIS MD (PCP/Family) Primary Care Physician Patient Instructions: Flu, Adult (DC) Add. Discharge Instructions: All discharge instructions reviewed with patient and/or family. Voiced understanding. Drink plenty of fluids. You may take Tylenol/acetaminophen 1000 mg every 6-8 hours as needed for fever or pain. You may take Advil/ibuprofen 600 mg every 8 hours as needed for fever or pain. Take other medications as directed. You may use the Dristan nasal spray 2-3 sprays to each nostril twice daily for the next 3 days and then stop. Do not use more than 3 days (your last dose will be Friday evening). You may take the nausea medicine with the Tamiflu if you're getting nauseated with that medicine. Return for worsening, fever, vomiting, weakness, breathing problems or other concerns as needed. Follow-up with your Dr. in 4-5 days for recheck if not improved. Scripts Ondansetron HCl (Ondansetron HCl) 4 Mg Tablet 4 MG PO Q6H PRN for NAUSEA/VOMITING, #10 TAB 0 Refills Prov: TOY YEUNG MD 07/01/18 Copy Copies To 1: RYAN LEWIS MD, TIMOTHY D MD Jul 01, 2018 07:43
[2018-07-01] MEDS ORDERED: ONDA4TAB10 PO (07:55)
[2018-07-01 08:17] VITALS: BP 180/95
== END 2018-07-01 08:15 | disposition home or self-care (01) ==
LOC: EDUNIT# 06:21 → ER 06:23
DX: J10.1 Influenza due to other identified influenza virus with other respiratory manifestations (principal); G47.30 Sleep apnea, unspecified; I25.10 Atherosclerotic heart disease of native coronary artery without angina pectoris; E78.00 Pure hypercholesterolemia, unspecified; I10 Essential (primary) hypertension; K21.9 Gastro-esophageal reflux disease without esophagitis; K58.9 Irritable bowel syndrome, unspecified; Z86.010 Personal history of colon polyps; Z87.442 Personal history of urinary calculi; Z88.0 Allergy status to penicillin; Z91.041 Radiographic dye allergy status; Z88.8 Allergy status to other drugs, medicaments and biological substances; Z87.891 Personal history of nicotine dependence; Z95.5 Presence of coronary angioplasty implant and graft; Z98.890 Other specified postprocedural states; Z96.642 Presence of left artificial hip joint; Z90.89 Acquired absence of other organs
CPT/HCPCS: 99283

== ENCOUNTER 2018-12-04 15:09 | Emergency (ER) | payer MEDICARE, OTHER ==
[~2018-12-04] VITALS: Ht 162.6 cm; Wt 104.6 kg
[~2018-12-04 15:09] MED LIST changes: -OMEP20CA12 PO; +OMEP20CA13 PO; +ONDA4TAB10 PO
[2018-12-04] MEDS ORDERED: NS IV 1000 ML 1,000 ML IV SCH (15:30)
[2018-12-04] MEDS ORDERED: KETOROLAC 30 MG/ML VIAL IVP ONE (15:30)
--- NOTE | 2018-12-04 15:34 | ED Back Pain ---
General Chief Complaint: Back Problems Stated Complaint: LEFT FLANK PAIN Nursing Triage Note: PATIENT STATES THAT HE HAS BEEN TRYING TO PASS A KIDNEY STONE ON THE LEFT WITHOUT LUCK. HE STATES HE HAS A LOT OF EXPERIENCE WITH KIDNEY STONES BUT THAT THIS ONE ISN'T MOVING. HE DOES HAVE PAIN WITH URINATION BUT IT DOES NOT FEEL LIKE IT IS MOVING. Nursing Sepsis Screen: No Definite Risk Source of Information: Patient Exam Limitations: No Limitations History of Present Illness Date Seen by Provider: Dec 04, 2018 Time Seen by Provider: 15:33 Initial Comments Left flank pain onset this morning, history of several kidney stones and this feels similar. No fevers chills. No vomiting. He has had dysuria. Location: Other (left flank) Timing/Duration: 4-6 Hours Severity: Moderate Method of Injury: Unknown Associated Symptoms: denies symptoms Allergies and Home Medications Allergies Coded Allergies: Penicillins (Verified Allergy, Unknown, 06/20/16) ezetimibe (Verified Allergy, Unknown, 06/20/16) iodine (Verified Allergy, Unknown, 06/20/16) simvastatin (Verified Allergy, Unknown, 06/20/16) Home Medications Allopurinol 300 Mg Tab, 300 MG PO DAILY, (Reported) Metoprolol Succinate 25 Mg Tab.er.24h, 25 MG PO DAILY PRN, (Reported) Multivits,Ca,Min/Iron/FA/Lycop 1 Each Tablet, 1 TAB PO DAILY, (Reported) Patient Home Medication List Home Medication List Reviewed: Yes Review of Systems Constitutional: see HPI EENTM: see HPI Respiratory: no symptoms reported Genitourinary: see HPI, dysuria Musculoskeletal: no symptoms reported Skin: no symptoms reported Past Wtctuzh-Ratjof-Knhuwc Hx Patient Social History Alcohol Use: Occasionally Uses Number of Drinks Today: Alcohol Beverage of Choice: Scotch, Wine Recreational Drug Use: No Smoking Status: Former Smoker Type Used: Cigarettes Former Smoker, Quit: Apr 17, 1970 2nd Hand Smoke Exposure: No Recent Foreign Travel: No Contact w/Someone Who Travel: No Recent Infectious Disease Expo: No Recent Hopitalizations: No Immunizations Up To Date Date of Pneumonia Vaccine: Dec 18, 2015 Date of Influenza Vaccine: Dec 18, 2015 Seasonal Allergies Seasonal Allergies: No Past Medical History Surgeries: Yes Cardiac, Coronary Stent, Gallbladder, Orthopedic, Tonsillectomy Respiratory: Yes Sleep Apnea Currently Using CPAP: Yes Cardiac: Yes (TAKES BP MEDICATIONS "WHEN HE NEEDS TO" ) Chronic Edema/Swelling, Coronary Artery Disease, High Cholesterol, Hypertension Neurological: No Reproductive Disorders: No Sexually Transmitted Disease: No HIV/AIDS: No Genitourinary: Yes Kidney Stones Gastrointestinal: Yes (S/P JUHI) Gastroesophageal Reflux, Polyps, Gall Bladder Disease, Irritable Bowel Musculoskeletal: Yes (CHRONIC NECK/BACK AND BILATERAL KNEE PAIN ) Arthritis, Chronic Back Pain, Gout Endocrine: No HEENT: Yes (UVULECTOMY) Tonsilitis Loss of Vision: Bilateral Hearing Impairment: Denies Cancer: No Psychosocial: No Integumentary: No Blood Disorders: No Adverse Reaction/Blood Tranf: No (N/A) Family Medical History No Pertinent Family Hx Physical Exam Vital Signs Vital Signs - First Documented 12/04/18 15:11 Temp 36.7 Pulse 78 Resp 18 B/P (MAP) 171/101 (124) Pulse Ox 99 Capillary Refill : Less Than 3 Seconds Height, Weight, BMI Height: 5'6.00" Weight: 226lbs. 0.0oz. 102.149437tb; 39.00 BMI Method:Stated General Appearance: No Apparent Distress, WD/WN Respiratory: No Accessory Muscle Use, No Respiratory Distress Gastrointestinal: Normal Bowel Sounds, Non Tender, Soft Neurologic/Psychiatric: Alert, Oriented x3 Skin: Normal Color, Warm/Dry Progress/Results/Core Measures Results/Orders Lab Results Laboratory Tests Test 12/04/18 15:31 12/04/18 15:58 Range/Units White Blood Count 8.3 4.3-11.0 10^3/uL Red Blood Count 4.48 4.35-5.85 10^6/uL Hemoglobin 14.3 13.3-17.7 G/DL Hematocrit 42 40-54 % Mean Corpuscular Volume 93 80-99 FL Mean Corpuscular Hemoglobin 32 25-34 PG Mean Corpuscular Hemoglobin Concent 34 32-36 G/DL Red Cell Distribution Width 13.1 10.0-14.5 % Platelet Count 281 130-400 10^3/uL Mean Platelet Volume 9.6 7.4-10.4 FL Neutrophils (%) (Auto) 71 42-75 % Lymphocytes (%) (Auto) 20 12-44 % Monocytes (%) (Auto) 7 0-12 % Eosinophils (%) (Auto) 1 0-10 % Basophils (%) (Auto) 0 0-10 % Neutrophils # (Auto) 5.9 1.8-7.8 X 10^3 Lymphocytes # (Auto) 1.7 1.0-4.0 X 10^3 Monocytes # (Auto) 0.6 0.0-1.0 X 10^3 Eosinophils # (Auto) 0.1 0.0-0.3 10^3/uL Basophils # (Auto) 0.0 0.0-0.1 10^3/uL Sodium Level 140 135-145 MMOL/L Potassium Level 4.3 3.6-5.0 MMOL/L Chloride Level 106 98-107 MMOL/L Carbon Dioxide Level 24 21-32 MMOL/L Anion Gap 10 5-14 MMOL/L Blood Urea Nitrogen 16 7-18 MG/DL Creatinine 1.14 0.60-1.30 MG/DL Estimat Glomerular Filtration Rate > 60 BUN/Creatinine Ratio 14 Glucose Level 98 70-105 MG/DL Calcium Level 9.7 8.5-10.1 MG/DL Urine Color YELLOW Urine Clarity CLEAR Urine pH 6.5 5-9 Urine Specific [place] 1.010 L 1.016-1.022 Urine Protein NEGATIVE NEGATIVE Urine Glucose (UA) NEGATIVE NEGATIVE Urine Ketones NEGATIVE NEGATIVE Urine Nitrite NEGATIVE NEGATIVE Urine Bilirubin NEGATIVE NEGATIVE Urine Urobilinogen NORMAL NORMAL MG/DL Urine Leukocyte Esterase NEGATIVE NEGATIVE Urine RBC (Auto) NEGATIVE NEGATIVE Urine RBC NONE /HPF Urine WBC NONE /HPF Urine Crystals NONE /LPF Urine Bacteria TRACE /HPF Urine Casts NONE /LPF Urine Mucus NEGATIVE /LPF Urine Culture Indicated NO My Orders Orders - ALYSON GONZALEZ APRN Cbc With Automated Diff (12/04/18 15:27) Basic Metabolic Panel (12/04/18 15:27) Ua Culture If Indicated (12/04/18 15:27) Ct Abd/Pelvis Wo(Kidney Stone) (12/04/18 15:27) Abdomen/Kub 1view (12/04/18 15:27) Ketorolac Injection (Toradol Injection) (12/04/18 15:30) Ns Iv 1000 Ml (Sodium Chloride 0.9%) (12/04/18 15:30) Ed Iv/Invasive Line Start (12/04/18 16:00) Medications Given in ED Current Medications Medications Dose Ordered Sig/Angy Route Start Time Stop Time Status Last Admin Dose Admin Ketorolac Tromethamine 15 mg ONCE ONCE IVP 12/04/18 15:30 12/04/18 15:31 DC 12/04/18 15:57 15 MG Vital Signs/I&O 12/04/18 15:11 Temp 36.7 Pulse 78 Resp 18 B/P (MAP) 171/101 (124) Pulse Ox 99 Blood Pressure Mean: 124 Departure Communication (Admissions) There is a stone seen on CT at the area of the right ureterovesicular junction, however the patient's pain has been entirely left-sided today and consistent with kidney stone type pain waxing and waning. I suspect that the stone that we are seeing on CT of the right ureterovesicular junction is actually in the bladder passed from the left ureter and just happens to be settled in the region of the right UVJ at the this very moment. At 1646 he is pain-free. Impression Primary Impression: ureteral stone Disposition: HOME, SELF-CARE Condition: Stable Departure-Patient Inst. Decision time for Depature: 16:46 Referrals: RYAN LEWIS MD (PCP/Family) Primary Care Physician Patient Instructions: Kidney Stones (DC) Add. Discharge Instructions: 1. Return to ER for any concerns 2. Follow-up with your doctor next week 3. All discharge instructions reviewed with patient and/or family. Voiced understanding. ALYSON GONZALEZ FAN INSTALLER Dec 04, 2018 15:34
[2018-12-04 15:41] LABS: BASOPHILS % (AUTO) 0 % (0-10); EOSINOPHILS # (AUTO) 0.1 10^3/uL (0.0-0.3); EOSINOPHILS % (AUTO) 1 % (0-10); HEMATOCRIT 42 % (40-54); HEMOGLOBIN 14.3 G/DL (13.3-17.7); LYMPHOCYTES # (AUTO) 1.7 X 10^3 (1.0-4.0); LYMPHOCYTES % (AUTO) 20 % (12-44); MEAN CORPUSCULAR HEMOGLOBIN 32 PG (25-34); MEAN CORPUSCULAR HGB CONC 34 G/DL (32-36); MEAN CORPUSCULAR VOLUME 93 FL (80-99); MEAN PLATELET VOLUME 9.6 FL (7.4-10.4); MONOCYTES # (AUTO) 0.6 X 10^3 (0.0-1.0); MONOCYTES % (AUTO) 7 % (0-12); NEUTROPHILS # (AUTO) 5.9 X 10^3 (1.8-7.8); NEUTROPHILS % (AUTO) 71 % (42-75); PLATELET COUNT 281 10^3/uL (130-400); RED CELL DISTRIBUTION WIDTH 13.1 % (10.0-14.5); WHITE BLOOD COUNT 8.3 10^3/uL (4.3-11.0)
[2018-12-04 15:55] LABS: BUN/CREATININE RATIO 14; CALCIUM 9.7 MG/DL (8.5-10.1); CARBON DIOXIDE 24 MMOL/L (21-32); CHLORIDE 106 MMOL/L (98-107); CREATININE SERUM 1.14 MG/DL (0.60-1.30); GFR ESTIMATED > 60; GLUCOSE 98 MG/DL (70-105); POTASSIUM 4.3 MMOL/L (3.6-5.0); SODIUM 140 MMOL/L (135-145)
--- NOTE | 2018-12-04 16:01 | Diagnostic Imaging Report ---
PROCEDURE: CT urinary tract, rule out kidney stone. TECHNIQUE: Multiple contiguous axial images were obtained through the abdomen and pelvis without the use of intravenous contrast. Auto Exposure Controls were utilized during the CT exam to meet ALARA standards for radiation dose reduction. INDICATION: Left flank pain. Patient has history of kidney stones. Correlation is made with prior CT from 05/25/2016. FINDINGS: There is linear scarring or atelectasis in the left lower lobe. Coronary arterial calcifications are noted. No discrete liver mass is detected. The gallbladder is surgically absent. No biliary ductal dilatation is seen. Pancreas does show some atrophic changes. The spleen is unremarkable. No adrenal mass is detected. There is a tiny approximately 2 mm calculus located at the right UVJ. No significant hydroureteronephrosis is seen. No left renal calculi are identified. No ureteral calculus on the left side or evidence of hydronephrosis is seen. Aorta is calcified but nonaneurysmal. Hazy density to the central mesentery is similar to prior CT. No lymphadenopathy is identified. The small and large bowel loops are normal caliber. There is no obstruction. Appendix is unremarkable. There is significant diverticulosis of the sigmoid colon and to a lesser degree involving the descending colon but no evidence of acute diverticulitis. Note is made of a fat-containing umbilical hernia. There is no ascites. Prostate is unremarkable. There are fat-containing inguinal hernias bilaterally. Bony structures demonstrate postop changes of left hip arthroplasty. IMPRESSION: 1. Tiny approximately 2 mm right UVJ calculus without evidence of hydroureteronephrosis. No left-sided renal calculi are seen. 2. Uncomplicated diverticulosis. 3. Bilateral fat-containing inguinal hernias. Dictated by: Dictated on workstation # [id number]
--- NOTE | 2018-12-04 16:01 | Diagnostic Imaging Report ---
INDICATION: Left flank pain. TIME OF EXAM: 3:51 p.m. EXAMINATION: KUB. FINDINGS: Bowel gas pattern is unremarkable. No definite radiopaque renal calculi are seen. Tiny calcific density in the right pelvis is noted, corresponding to the density noted on CT at the region of the right UVJ. No other abnormality is seen. There are postop changes of the left hip. IMPRESSION: Right pelvic calcification, perhaps a tiny calculus noted in the region of the right UVJ on CT. No other abnormality is identified. Dictated by: Dictated on workstation # [id number]
[2018-12-04 16:04] LABS: BILIRUBIN,URINE NEGATIVE (NEGATIVE); CLARITY,URINE CLEAR; COLOR,URINE YELLOW; GLUCOSE, URINE (UA) NEGATIVE (NEGATIVE); KETONES,URINE NEGATIVE (NEGATIVE); LEUKOCYTE ESTERASE ,URINE NEGATIVE (NEGATIVE); NITRITE,URINE NEGATIVE (NEGATIVE); PH,URINE 6.5 (5-9); PROTEIN,URINE NEGATIVE (NEGATIVE); UROBILINOGEN,URINE NORMAL (NORMAL)
[2018-12-04 16:27] LABS: BACTERIA,URINE TRACE /HPF
[2018-12-04 17:00] VITALS: BP 162/91
== END 2018-12-04 17:00 | disposition home or self-care (01) ==
LOC: EDUNIT# 15:09 → ER 15:10
DX: N20.1 Calculus of ureter (principal); I10 Essential (primary) hypertension; I25.10 Atherosclerotic heart disease of native coronary artery without angina pectoris; E78.00 Pure hypercholesterolemia, unspecified; G47.30 Sleep apnea, unspecified; K21.9 Gastro-esophageal reflux disease without esophagitis; K58.9 Irritable bowel syndrome, unspecified; M10.9 Gout, unspecified; Z87.19 Personal history of other diseases of the digestive system; Z99.89 Dependence on other enabling machines and devices; Z87.442 Personal history of urinary calculi; Z90.49 Acquired absence of other specified parts of digestive tract; Z95.5 Presence of coronary angioplasty implant and graft; Z88.0 Allergy status to penicillin; Z88.8 Allergy status to other drugs, medicaments and biological substances; Z87.891 Personal history of nicotine dependence; Z90.89 Acquired absence of other organs
CPT/HCPCS: 36415; 74018; 74176; 80048; 81000; 85025

== ENCOUNTER 2019-01-29 12:22 | Outpatient (RCR) | payer MEDICARE, OTHER ==
[~2019-01-29 12:22] MED LIST changes: -METO-387 PO; +MTP25TSR PO; +OMEP-280 PO; -OMEP20CA13 PO; -TAMS0.4C98 PO; +TMSL.4C PO
--- NOTE | 2019-01-29 12:53 | Diagnostic Imaging Report ---
INDICATION: Nephrolithiasis KUB 12:52 PM There are postoperative changes from left hip arthroplasty. There are severe diffuse degenerative changes of the lumbar spine. There are no radiopaque calculus seen in the kidneys or ureter distribution. IMPRESSION: There is no plain film evidence of urinary calculus. Dictated by: Dictated on workstation # [id number]
[2019-01-29 13:10] LABS: BUN/CREATININE RATIO 13; CALCIUM 9.6 MG/DL (8.5-10.1); CARBON DIOXIDE 21 MMOL/L (21-32); CHLORIDE 108 MMOL/L (98-107); GFR ESTIMATED > 60; GLUCOSE 71 MG/DL (70-105); PHOSPHORUS 2.7 MG/DL (2.3-4.7); POTASSIUM 4.2 MMOL/L (3.6-5.0); SODIUM 140 MMOL/L (135-145); URIC ACID 4.4 MG/DL (2.6-7.2)
== END 2019-04-29 | disposition home or self-care (01) ==
LOC: RAD 12:22
PROVIDERS: ATTEND Urology
DX: N40.0 Benign prostatic hyperplasia without lower urinary tract symptoms (principal); N20.0 Calculus of kidney
CPT/HCPCS: 36415; 74018; 80048; 82140; 82340; 82507; 82570; 83735; 83945; 83986; 84100; 84105; 84133; 84153; 84300; 84392; 84550; 84560

== ENCOUNTER 2020-02-16 10:32 | Outpatient (RCR) | payer MEDICARE ==
[2020-02-14 16:05] LABS: CALCIUM 9.3 MG/DL (8.5-10.1); CREATININE SERUM 1.32 MG/DL (0.60-1.30); PHOSPHORUS 2.8 MG/DL (2.3-4.7); POTASSIUM 3.9 MMOL/L (3.6-5.0)
--- NOTE | 2020-02-14 16:58 | Diagnostic Imaging Report ---
Clinical Indication: Patient with a kidney stone. Follow-up exam. Exam: KUB x-ray. Comparison: KUB x-ray dated 01/29/2019. Findings: There are no focal calcifications overlying the expected regions/ pathways of both kidneys, ureters, and bladder regions. There is a nonobstructed bowel gas pattern. There is no evidence of abdominal free air. Again seen hypertrophic spurs involving the lumbar spine. Again noted are hypertrophic spurs involving the right hip. Left hip arthroplasty is again seen. Impression: There is no radiographic evidence for acute abdominal/ pelvic process or urinary tract stones. Dictated by: Dictated on workstation # [id number]
[~2020-02-16 10:32] MED LIST changes: +ASPI-1238 PO; -ASPI-983 PO; -OMEP-280 PO; +OMEP20CA18 PO; +ONDA-105 PO; -ONDA4TAB10 PO
[2020-04-13] MEDS ORDERED: LOSA50TA63 PO (06:32)
[2020-04-13] MEDS ORDERED: CLOP75TA28 PO (06:32)
[2020-04-13] MEDS ORDERED: PANT20TA18 PO (06:32)
[2020-04-13] MEDS ORDERED: ASPI-1238 PO (06:32)
== END 2020-05-14 | disposition home or self-care (01) ==
LOC: RAD 10:32
PROVIDERS: ATTEND Urology
DX: N40.0 Benign prostatic hyperplasia without lower urinary tract symptoms (principal); E29.1 Testicular hypofunction; N20.0 Calculus of kidney; Z87.442 Personal history of urinary calculi
CPT/HCPCS: 74018; 80048; 84100; 84550; G0103; 36415; 82140; 82340; 82507; 82570; 83735; 83945; 83986; 84105; 84133; 84153; 84300; 84392; 84560

== ENCOUNTER 2020-04-10 10:14 | Inpatient (IN) | payer MEDICARE ==
[2020-04-10] VITALS (9 sets, daily range): BP systolic 118–157; BP diastolic 69–103
[~2020-04-10] VITALS: Ht 162 cm; Wt 98.5 kg
--- NOTE | 2020-04-10 10:28 | ED Chest Pain ---
General Chief Complaint: Chest Pain Stated Complaint: CP History of Present Illness Date Seen by Provider: Apr 10, 2020 Time Seen by Provider: 10:28 Initial Comments 80-year-old male presents with chest pain that radiates into his back both arms and wrist. Reports an episode yesterday that resolved with nitro. Reports that it started again this morning, he took 3 nitros with no relief. He has a history of 6 stents previously. He denies any diaphoresis, nausea, vomiting, shortness of breath.. Allergies and Home Medications Allergies Coded Allergies: Penicillins (Verified Allergy, Unknown, 06/20/16) ezetimibe (Verified Allergy, Unknown, 06/20/16) iodine (Verified Allergy, Unknown, 06/20/16) simvastatin (Verified Allergy, Unknown, 06/20/16) Home Medications Allopurinol 300 Mg Tab, 300 MG PO DAILY, (Reported) Metoprolol Succinate 25 Mg Tab.er.24h, 25 MG PO DAILY PRN, (Reported) Multivits,Ca,Min/Iron/FA/Lycop 1 Each Tablet, 1 TAB PO DAILY, (Reported) Patient Home Medication List Home Medication List Reviewed: Yes Review of Systems Review of Systems Constitutional: No chills, No fever Respiratory: Denies Cough, Denies Shortness of Air Cardiovascular: Chest Pain; Denies Lightheadedness, Denies Palpitations Gastrointestinal: Denies Abdominal Pain, Denies Nausea, Denies Vomiting Musculoskeletal: see HPI Skin: no symptoms reported Psychiatric/Neurological: No Symptoms Reported Endocrine: No Symptoms Reported Hematologic/Lymphatic: No Symptoms Reported Past Bhdhewp-Lvrhud-Gddtch Hx Past Med/Social Hx: Reviewed Nursing Past Med/Soc Hx Patient Social History Alcohol Beverage of Choice: Scotch, Wine Type Used: Cigarettes Former Smoker, Quit: Apr 17, 1970 2nd Hand Smoke Exposure: No Recent Hopitalizations: No Immunizations Up To Date Date of Pneumonia Vaccine: Dec 18, 2015 Date of Influenza Vaccine: Dec 18, 2015 Seasonal Allergies Seasonal Allergies: No Past Medical History Surgeries: Yes Cardiac, Coronary Stent, Gallbladder, Orthopedic, Tonsillectomy Respiratory: Yes Sleep Apnea Currently Using CPAP: Yes Cardiac: Yes (TAKES BP MEDICATIONS "WHEN HE NEEDS TO" ) Chronic Edema/Swelling, Coronary Artery Disease, High Cholesterol, Hypertension Neurological: No Reproductive Disorders: No Sexually Transmitted Disease: No HIV/AIDS: No Genitourinary: Yes Kidney Stones Gastrointestinal: Yes (S/P JUHI) Gastroesophageal Reflux, Polyps, Gall Bladder Disease, Irritable Bowel Musculoskeletal: Yes (CHRONIC NECK/BACK AND BILATERAL KNEE PAIN ) Arthritis, Chronic Back Pain, Gout Endocrine: No HEENT: Yes (UVULECTOMY) Tonsilitis Loss of Vision: Bilateral Hearing Impairment: Denies Cancer: No Psychosocial: No Integumentary: No Blood Disorders: No Adverse Reaction/Blood Tranf: No (N/A) Family Medical History No Pertinent Family Hx Physical Exam Vital Signs Vital Signs - First Documented 04/10/20 10:26 Temp 36.4 Pulse 91 Resp 18 B/P (MAP) 179/113 (135) Pulse Ox 96 O2 Delivery Room Air Capillary Refill : Height, Weight, BMI Height: 5'6.00" Weight: 226lbs. 0.0oz. 102.121952ge; 39.00 BMI Method:Stated General Appearance: Mild Distress HEENT: PERRL/EOMI Neck: Non Tender, Supple Respiratory: Lungs Clear, Normal Breath Sounds Cardiovascular: Regular Rate, Rhythm, No Edema Gastrointestinal: Non Tender, Soft Extremity: Normal Capillary Refill, Normal Inspection Neurologic/Psychiatric: Alert, Oriented x3, No Motor/Sensory Deficits, Normal Mood/Affect Skin: Normal Color, Warm/Dry Progress/Results/Core Measures Results/Orders Lab Results Laboratory Tests Test 04/10/20 10:34 Range/Units White Blood Count 9.1 4.3-11.0 10^3/uL Red Blood Count 4.32 4.30-5.52 10^6/uL Hemoglobin 14.0 13.3-17.7 g/dL Hematocrit 41 40-54 % Mean Corpuscular Volume 95 80-99 fL Mean Corpuscular Hemoglobin 32 25-34 pg Mean Corpuscular Hemoglobin Concent 34 32-36 g/dL Red Cell Distribution Width 13.5 10.0-14.5 % Platelet Count 292 130-400 10^3/uL Mean Platelet Volume 8.9 L 9.0-12.2 fL Immature Granulocyte % (Auto) 0 % Neutrophils (%) (Auto) 79 H 42-75 % Lymphocytes (%) (Auto) 15 12-44 % Monocytes (%) (Auto) 5 0-12 % Eosinophils (%) (Auto) 0 0-10 % Basophils (%) (Auto) 0 0-10 % Neutrophils # (Auto) 7.3 1.8-7.8 10^3/uL Lymphocytes # (Auto) 1.4 1.0-4.0 10^3/uL Monocytes # (Auto) 0.4 0.0-1.0 10^3/uL Eosinophils # (Auto) 0.0 0.0-0.3 10^3/uL Basophils # (Auto) 0.0 0.0-0.1 10^3/uL Immature Granulocyte # (Auto) 0.0 0.0-0.1 10^3/uL Prothrombin Time 13.1 12.2-14.7 SEC INR Comment 1.0 0.8-1.4 Activated Partial Thromboplast Time 32 24-35 SEC Sodium Level 138 135-145 MMOL/L Potassium Level 3.8 3.6-5.0 MMOL/L Chloride Level 105 98-107 MMOL/L Carbon Dioxide Level 22 21-32 MMOL/L Anion Gap 11 5-14 MMOL/L Blood Urea Nitrogen 20 H 7-18 MG/DL Creatinine 1.33 H 0.60-1.30 MG/DL Estimat Glomerular Filtration Rate 52 BUN/Creatinine Ratio 15 Glucose Level 110 H 70-105 MG/DL Calcium Level 9.5 8.5-10.1 MG/DL Corrected Calcium 9.2 8.5-10.1 MG/DL Magnesium Level 2.1 1.6-2.4 MG/DL Total Bilirubin 1.0 0.1-1.0 MG/DL Aspartate Amino Transf (AST/SGOT) 37 H 5-34 U/L Alanine Aminotransferase (ALT/SGPT) 31 0-55 U/L Alkaline Phosphatase 75 40-136 U/L Troponin I 0.256 H <0.028 NG/ML Total Protein 7.6 6.4-8.2 GM/DL Albumin 4.4 3.2-4.5 GM/DL My Orders Orders - CHILD,MAURISIO L DO Cbc With Automated Diff (04/10/20 10:28) Magnesium (04/10/20 10:28) Chest 1 View, Ap/Pa Only (04/10/20 10:28) Ekg Tracing (04/10/20 10:28) Comprehensive Metabolic Panel (04/10/20 10:28) Protime With Inr (04/10/20 10:28) Partial Thromboplastin Time (04/10/20 10:28) O2 (04/10/20 10:28) Monitor-Rhythm Ecg Trace Only (04/10/20 10:28) Lipid Panel (04/11/20 06:00) Ed Iv/Invasive Line Start (04/10/20 10:28) Troponin I (04/10/20 10:28) Aspirin Chewable Tablet (Baby Aspirin Ch (04/10/20 10:30) Ekg Tracing (04/10/20 10:28) Medications Given in ED Current Medications Medications Dose Ordered Sig/Angy Route Start Time Stop Time Status Last Admin Dose Admin Aspirin 324 mg ONCE ONCE PO 04/10/20 10:30 04/10/20 10:31 DC 04/10/20 11:19 324 MG Vital Signs/I&O 04/10/20 04/10/20 10:26 10:26 Temp 36.4 Pulse 91 Resp 18 B/P (MAP) 179/113 (135) Pulse Ox 96 O2 Delivery Room Air Initial ECG Impression Date: Apr 10, 2020 Initial ECG Impression Time: 10:28 Initial ECG Rate: 88 Initial ECG Rhythm: Normal Sinus Initial ECG Intervals: Normal Initial ECG Impression: Nonspecific Changes Comment Nonspecific, no acute ST elevation or changes EKG : EKG Time: 10:38 Rate: 87 Rhythm: Normal Sinus Intervals: Normal ECG Comparisson: Unchanged Comment Posterior EKG with no acute ST elevation or changes, nonspecific changes Departure Communication (Admissions) Time/Spoke to Admitting Phy: 11:30 Dr Ovalle, saw pt in ER, will go directly to [facility] [address] Impression Primary Impression: Unstable angina Additional Impression: Non-STEMI (non-ST elevated myocardial infarction) Disposition: 09 ADMITTED INPATIENT Condition: Stable Admissions Decision to Admit Reason: Admit from ER (General) Decision to Admit/Date: Apr 10, 2020 Time/Decision to Admit Time: 11:30 Departure-Patient Inst. Referrals: RYAN LEWIS MD (PCP/Family) Primary Care Physician MAURISIO CHILD DO Apr 10, 2020 10:28
[2020-04-10] MEDS ORDERED: ASPIRIN 81 MG CHEW (CHILDREN'S ASA) PO ONE (10:30)
[2020-04-10 10:39] LABS: BASOPHILS % (AUTO) 0 % (0-10); EOSINOPHILS % (AUTO) 0 % (0-10); HEMATOCRIT 41 % (40-54); LYMPHOCYTES # (AUTO) 1.4 10^3/uL (1.0-4.0); LYMPHOCYTES % (AUTO) 15 % (12-44); MEAN CORPUSCULAR HEMOGLOBIN 32 pg (25-34); MEAN CORPUSCULAR HGB CONC 34 g/dL (32-36); MEAN CORPUSCULAR VOLUME 95 fL (80-99); MEAN PLATELET VOLUME 8.9 fL (9.0-12.2); MONOCYTES # (AUTO) 0.4 10^3/uL (0.0-1.0); MONOCYTES % (AUTO) 5 % (0-12); NEUTROPHILS # (AUTO) 7.3 10^3/uL (1.8-7.8); NEUTROPHILS % (AUTO) 79 % (42-75); PLATELET COUNT 292 10^3/uL (130-400); WHITE BLOOD COUNT 9.1 10^3/uL (4.3-11.0)
[2020-04-10 10:52] LABS: ALBUMIN 4.4 GM/DL (3.2-4.5); POTASSIUM 3.8 MMOL/L (3.6-5.0)
[2020-04-10 10:53] LABS: CALCIUM 9.5 MG/DL (8.5-10.1)
[2020-04-10 10:54] LABS: PROTHROMBIN TIME PATIENT 13.1 SEC (12.2-14.7); TOTAL PROTEIN 7.6 GM/DL (6.4-8.2)
--- NOTE | 2020-04-10 10:56 | Diagnostic Imaging Report ---
Indication: Chest pain. Findings: The lungs are clear. There is no failure, effusion or pneumothorax. Impression: No acute-appearing abnormality. Dictated by: Dictated on workstation # [id number]
[2020-04-10 10:58] LABS: CREATININE SERUM 1.33 MG/DL (0.60-1.30)
[2020-04-10 11:01] LABS: MAGNESIUM 2.1 MG/DL (1.6-2.4)
--- NOTE | 2020-04-10 11:29 | NUR ---
dr. jimenez here talking to pt at this time
[2020-04-10] MEDS ORDERED: fentaNYL INJECTION 100 MCG/2 ML AMP ONE (11:32)
[2020-04-10] MEDS ORDERED: LIDOCAINE 1% INJ 20 ML 20 ML VIAL ONE ×2 (11:32→12:24)
[2020-04-10] MEDS ORDERED: MIDAZOLAM 5 MG/5 ML (VERSED) VIAL ONE (11:32)
[2020-04-10] MEDS ORDERED: NS IV 1000 ML 1,000 ML ONE (11:32)
[2020-04-10] MEDS ORDERED: HEParin (CATH LAB) 2,000 ML IV ONE ×2 (11:33→12:24)
[2020-04-10] MEDS ORDERED: diphenhydrAMINE 50 MG/ML INJ (BENADRYL) ONE (11:47)
[2020-04-10] MEDS ORDERED: FAMOTIDINE 20MG/2ML IV (PEPCID) ONE (11:47)
[2020-04-10] MEDS ORDERED: methylPREDNISolone 125 MG (Solu-MEDROL) VIAL ONE (11:47)
[2020-04-10] MEDS ORDERED: CLOPIDOGREL 300 MG (PLAVIX) TABLET PO ONE (12:17)
[2020-04-10] MEDS ORDERED: HEParin 1000 UNIT/ML (10ML VIAL) FOR BOLUS ONE (12:24)
[2020-04-10] MEDS ORDERED: NITRO DRIP 25000 MCG/D5W 250 ML IV ONE (12:25)
--- NOTE | 2020-04-10 12:27 | Cardiac Procedure Note-CS/ASA ---
Pre-Procedure Note Pre-Op Procedure Note H&P Reviewed The H&P was reviewed, patient examined and no changes noted. Date H&P Reviewed: Apr 10, 2020 Time H&P Reviewed: 12:27 Conscious Sedation Pre-Proced Time 12:27 ASA Score 3 For ASA 3 and 4: Consider anesthesia and medical clearance. Also, for patients with a history of failed moderate sedation consider anesthesia. Airway Lungs Heart ASA score ASA 1: a normal healthy patient ASA 2: a patient with a mild systemic disease (mid diabetes, controlled hypertension, obesity x ASA 3: a patient with a severe systemic disease that limits activity (angina, COPD, prior Myocardial infarction) ASA 4: a patient with an incapacitating disease that is a constant threat to life (CHF, renal failure) ASA 5: a moribund patient not expected to survive 24 hrs. (ruptured aneurysm) ASA 6: a declared brain- patient whose organs are being harvested. For emergent operations, add the letter E after the classification Mallampati Classification Grade 3 Sedation Plan Analgesia, Amnesia, Plan communicated to team members, Discussed options with patient/fam, Discussed risks with patient/fam The patient is an appropriate candidate to undergo the planned procedure, sedation, and anesthesia. The patient immediately re-assessed prior to indication. EVANGELIST AMAYA MD Apr 10, 2020 12:27
[2020-04-10] MEDS ORDERED: PATIENT MAY USE OWN MEDS, ALL PO SCH (13:30)
[2020-04-10] MEDS: NS IV 1000 ML 1,000 ML IV SCH (13:30)
--- NOTE | 2020-04-10 13:40 | Cardiology History & Physical ---
HPI-Cardiology Cardiology Consultation Date of Consultation 04/10/20 Date of Admission Time Seen by Provider: 13:35 Indication: chest pain HPI 80-year-old gentleman with extensive cardiac history, hypertension hyperlipidemia has been having chest pain waxing and waning for the past month, became more severe today, came into the emergency room for evaluation. Currently his chest pain is better controlled. PMH-Cardiology Immunizations Up To Date Date of Pneumonia Vaccine: Dec 18, 2015 Date of Influenza Vaccine: Dec 18, 2015 Seasonal Allergies Seasonal Allergies: No Surgeries Yes (l hip replacement, bilat rotator cuf repair) Gall Bladder, Tonsillectomy Respiratory Yes Cardiovascular Yes (TAKES BP MEDICATIONS "WHEN HE NEEDS TO" ) Palpitations, High Cholesterol, Hypertension, Coronary Artery Disease Neurological No Reproductive System Hx Reproductive Disorders: No Sexually Transmitted Disease: No HIV/AIDS: No Genitourinary Yes Kidney Stones Gastrointestinal Yes (S/P JUHI) Gastroesophageal Reflux, Polyps, Gall Bladder Disease, Irritable Bowel Musculoskeletal Yes (CHRONIC NECK/BACK AND BILATERAL KNEE PAIN ) Arthritis, Chronic Back Pain, Gout Endocrine No HEENT Yes (UVULECTOMY) Tonsilitis Loss of Vision: Bilateral Hearing Impairment: Denies Cancer No Psychosocial No Integumentary No Blood Transfusions No Adverse Rxn to Transfusion: No (N/A) Social History Patient Social History Marrital Status: Employed/Student: employed, retired Family Hx Significant Family History: No Pertinent Family Hx Other Noncontributory ROS-Cardiology Review of Systems General: No Chills, No Night Sweats, No Fatigue, No Malaise, No Appetite HEENT: No Head Aches, No Visual Changes, No Eye Pain, No Ear Pain, No Dysphasia, No Sinus Congestion, No Post Nasal Drip, No Sore Throat Pulmonary: No Dyspnea, No Cough, No Pleuritic Chest Pain Cardiovascular: Chest Pain; No: Palpitations, Orthopnea, Paroxysmal Noc. Dyspnea, Edema, Lt Headedness Gastrointestinal: No: Nausea, Vomiting, Abdominal Pain, Diarrhea, Constipation, Melena, Hematochezia Genitourinary: No Dysuria, No Frequency, No Incontinence, No Hematuria, No Retention Musculoskeletal: No: neck pain, shoulder pain, arm pain, back pain, hand pain, leg pain, foot pain Neurological: No: Weakness, Numbness, Incoordination, Change in speech, Confusion, Seizures Home Medications & Allergies Allergies: Coded Allergies: Penicillins (Verified Allergy, Unknown, 06/20/16) ezetimibe (Verified Allergy, Unknown, 06/20/16) iodine (Verified Allergy, Unknown, 06/20/16) simvastatin (Verified Allergy, Unknown, 06/20/16) Exam-Cardiology Vital Signs Vital Signs Date Time Temp Pulse Resp B/P (MAP) Pulse Ox O2 Delivery O2 Flow Rate FiO2 04/10/20 11:44 92 18 179/113 97 04/10/20 10:26 36.4 04/10/20 10:26 Room Air Exam General Appearance: Alert, Oriented X3, Cooperative, No Acute Distress HEENT: Atraumatic, PERRLA Respiratory: Clear to Auscultation, Normal Air Movement Cardiovascular: Regular Rate, Normal S1, Normal S2, No Murmurs Abdominal: Normal Bowel Sounds, Soft, No Tenderness, No Hepatosplenomegaly, No Masses Extremities: No Clubbing, No Cyanosis, No Edema, Normal Pulses, No Tenderness/Swelling Skin: No Rashes, No Breakdown, No Significant Lesion Neuro: Normal Gait, Normal Speech, Strength at 5/5 X4 Ext, Normal Tone, Sensation Intact Psych/Mental Status: Mental Status NL, Mood NL Results Labs Labs Laboratory Tests 04/10/20 10:34: White Blood Count 9.1, Red Blood Count 4.32, Hemoglobin 14.0, Hematocrit 41, Mean Corpuscular Volume 95, Mean Corpuscular Hemoglobin 32, Mean Corpuscular Hemoglobin Concent 34, Red Cell Distribution Width 13.5, Platelet Count 292, Mean Platelet Volume 8.9L, Immature Granulocyte % (Auto) 0, Neutrophils (%) (Auto) 79H, Lymphocytes (%) (Auto) 15, Monocytes (%) (Auto) 5, Eosinophils (%) (Auto) 0, Basophils (%) (Auto) 0, Neutrophils # (Auto) 7.3, Lymphocytes # (Auto) 1.4, Monocytes # (Auto) 0.4, Eosinophils # (Auto) 0.0, Basophils # (Auto) 0.0, Immature Granulocyte # (Auto) 0.0, Prothrombin Time 13.1, INR Comment 1.0, Activated Partial Thromboplast Time 32, Sodium Level 138, Potassium Level 3.8, Chloride Level 105, Carbon Dioxide Level 22, Anion Gap 11, Blood Urea Nitrogen 20H, Creatinine 1.33H, Estimat Glomerular Filtration Rate 52, BUN/Creatinine Ratio 15, Glucose Level 110H, Calcium Level 9.5, Corrected Calcium 9.2, Magnesium Level 2.1, Total Bilirubin 1.0, Aspartate Amino Transf (AST/SGOT) 37H, Alanine Aminotransferase (ALT/SGPT) 31, Alkaline Phosphatase 75, Troponin I 0.256H, Total Protein 7.6, Albumin 4.4 A/P-Cardiology Admission Diagnosis Non-ST elevation myocardial infarction Coronary artery disease Hypertension Hyperlipidemia Admission Status: Observation Assessment/Plan Non-ST elevation myocardial infarction, Cardec catheterization was carried out showing patent stents in the LAD and right coronary artery, totally occluded obtuse marginal branch, small to moderate size, attempt for intervention has failed to reestablish flow. Continue with maximizing medical therapy Coronary artery disease, extensive history, history of stents in 2006 to the mid and distal right coronary artery using mini vision and Cypher stents, late August 2006 at 3 stents to the LAD, last cardiac catheterization was carried out today showing patent stents. Occluded circumflex artery Hypertension, poorly controlled, we have been working on weight loss and diet controlled, restart Toprol and add lisinopril and monitor blood pressure Hyperlipidemia, intolerant to statins secondary to myalgia, history of elevated liver enzymes. Obstructive sleep apnea on C Pap Mild bilateral carotid stenosis, continue to monitor History of antral gastritis maintained on PPI Diverticulosis Irritable bowel syndrome History of kidney stones Clinical Quality Measures AMI/AHF: ASA po Prior to arrival: EVANGELIST Valdez MD Apr 10, 2020 1:40 pm
[2020-04-10] MEDS: LOSARTAN 50 MG (COZAAR) TAB PO SCH (14:47)
--- NOTE | 2020-04-10 16:44 | Cardiac Cath Report ---
Cardiac Cath Report Physician (s)/Freight Conductor (s) Physician EVANGELIST AMAYA MD Pre-Procedure Diagnosis Pre-Procedure Diagnosis: non-ST elevation myocardial infarction Post-Procedure Note Procedure Start Date: Apr 10, 2020 Name of Procedure: Left heart catheterization Attempt for intervention Findings/Procedure Note PROCEDURE NOTE: 80 years old gentleman with known extensive history of coronary artery disease, has been having chest pain for the past few weeks, became worse today, came into the hospital for evaluation and brought for emergency cardiac catheterization. After explaining the procedure to the patient, all pros and cons were explained, all questions were answered. The patient signed the consent and then he was placed on the cardiac catheterization laboratory. Groin was prepped SL fashion local anesthesia was used. Sheath placed in the right femoral artery. Mychal right and left catheter were used to access the coronary system. Pigtail was us ed to access the left ventricular cavity. Left ventriculogram was not done, pressure was measured At that point I noticed that the patient had occluded his first obtuse marginal branch which is a very small artery hairline artery then the continuation of the circumflex and the second and third obtuse marginal branch appeared to be occluded. The artery was small. Catheter was removed and closure device deployed, then I was able to review his old catheter films and felt that there is a possibility of opening that circumflex artery and reestablishing flow in the obtuse marginal branch. The groin was accessed again and a sheath was placed in the right groin. I at attempted with multiple guides after giving the patient 5000 units of heparin using Mychal left 3.5, Mychal left 4.0, Voda left 3.5, Voda left 3.0, EBU, AL-1 without the ability to gain access to the left main. I tried to advance a wire indirectly in the left main without success. After multiple attempts and use large amount of contrast I decided to abort the procedure. Patient was pain-free and he was feeling better. At the end of the procedure the sheath was removed. Closure device was deployed FINDINGS: Hemodynamics LV 140/20, end-diastolic pressure of 20 Aorta 156/86 mean of 118 ANATOMY: Left Main is calcified with no obstructive disease Left Anterior Descending has multiple mid stents that are patent, small vessel disease distally, diagonal artery has moderate disease Left Circumflex is occluded at the midportion the first obtuse marginal branch is a hairline artery that is occluded, distally the second and third obtuse marginal branch that are larger artery but they were occluded. Failed attempt for intervention on the circumflex artery with no complication Right Coronary Artery has moderate disease, patent stent with no obstructive disease LV Gram was not done, pressure was measured CONCLUSION: 1. Occluded circumflex artery, small artery ranging between 1.5-2 mm, attempt for intervention fail to intubate the left main and access the artery for intervention 2. Patent stent in the mid and distal LAD with moderate disease distally, patent stent in the right coronary artery with moderate disease distally 3. Mildly elevated left ventricular end-diastolic pressure DISCUSSION AND RECOMMENDATION: Patient was started on aspirin and Plavix, we will maximize medical therapy at this point. Anesthesia Type: Conscious Sedation Estimated blood loss (mL): 50 ml Contrast Amount: 96 ml Total Radiation Dose: 1416 mGy Post-Procedure Diagnosis Post-operative diagnosis: Non-ST elevation myocardial infarction Coronary artery disease Hypertension Hyperlipidemia EVANGELIST AMAYA MD Apr 10, 2020 16:43
[2020-04-10] MEDS ORDERED: ACETAMINOPHEN 500 MG TAB (TYLENOL) ONE (22:09)
[2020-04-10] MEDS: ACETAMINOPHEN 500 MG TAB (TYLENOL) PO PRN (22:15)
[2020-04-11] VITALS (8 sets, daily range): BP systolic 97–134; BP diastolic 58–77
[2020-04-11] MEDS: NS IV 1000 ML 1,000 ML IV SCH (00:47)
[2020-04-11 03:48] LABS: HEMOGLOBIN 12.6 g/dL (13.3-17.7); MEAN PLATELET VOLUME 9.4 fL (9.0-12.2); WHITE BLOOD COUNT 12.1 10^3/uL (4.3-11.0)
[2020-04-11 03:58] LABS: CHLORIDE 105 MMOL/L (98-107); SODIUM 136 MMOL/L (135-145)
[2020-04-11 04:00] LABS: CALCIUM 9.4 MG/DL (8.5-10.1)
[2020-04-11 04:01] LABS: GLUCOSE 152 MG/DL (70-105); TRIGLYCERIDES 86 MG/DL (<150); VLDL CHOLESTEROL 17 MG/DL (5-40)
[2020-04-11 04:02] LABS: CARBON DIOXIDE 18 MMOL/L (21-32)
[2020-04-11 04:05] LABS: BUN/CREATININE RATIO 19; CREATININE SERUM 1.16 MG/DL (0.60-1.30); GFR ESTIMATED > 60
[2020-04-11 04:06] LABS: CHOLESTEROL 185 MG/DL (< 200)
[2020-04-11 04:07] LABS: HDL CHOLESTEROL 55 MG/DL (40-60)
--- NOTE | 2020-04-11 05:24 | NUR ---
Aware BP 80's/50's. This RN does not believe this is accurate. Patient laying on side with blood pressure cuff on and has arm bent. Has been awake most of night. Switched BP cuff to opposite arm 101/60.
--- NOTE | 2020-04-11 06:58 | NUR ---
Noted BP 80's/50's. In room to check on patient; patient snoring lightly. Smaller BP cuff applied to left upper arm. BP 90's/60's. Cath site examined. No change noted. Patient denies any dizziness, nausea, or chest pain.
[2020-04-11] MEDS: CLOPIDOGREL 75 MG (PLAVIX) TABLET PO SCH (08:46)
[2020-04-11] MEDS: LOSARTAN 50 MG (COZAAR) TAB PO SCH (08:46)
[2020-04-11] MEDS: ASPIRIN E.C. 81 MG (ECOTRIN) TAB PO SCH (08:46)
--- NOTE | 2020-04-11 10:30 | NUR ---
CM/SS: Visited with ALLAN Galeas the nurse assigned to pt in reference to a Notification/ Hvac/R Instructor Consult related to Patient Support. Per report from ALLAN Galeas, pt is from home and will likely discharge on tomorrow. His sister is his point of contact. No identified issues related to support system. No consult needed at this time, perhaps entered in error. This worker is available if needed.
--- NOTE | 2020-04-11 12:00 | Cardiology Progress Note ---
Subjective Date Seen by Provider: Apr 11, 2020 Time Seen by Provider: 11:59 Subjective/Events-last exam patient is laying down in bed, feeling well. Denied any chest pain or shortness of breath Review of Systems General: No Chills, No Night Sweats, No Fatigue, No Malaise, No Appetite, No Other HEENT: No Head Aches, No Visual Changes, No Eye Pain, No Ear Pain, No Dy sphasia, No Sinus Congestion, No Post Nasal Drip, No Sore Throat, No Other Pulmonary: No Dyspnea, No Cough, No Pleuritic Chest Pain, No Other Cardiovascular: No: Chest Pain, Palpitations, Orthopnea, Paroxysmal Noc. Dyspnea, Edema, Lt Headedness, Other Objective-Cardiology Exam Last Set of Vital Signs Vital Signs 04/11/20 04/11/20 07:50 07:54 Temp 36.3 Pulse 80 Resp 18 B/P (MAP) 116/67 (83) Pulse Ox 97 O2 Delivery Room Air Capillary Refill : Less Than 3 Seconds I&O Intake and Output 04/11/20 00:00 Intake Total 240 ml Output Total 700 ml Balance -460 ml Intake Oral 240 ml Output Urine Total 700 ml Daily Weight Change No General: Alert, Oriented X3, Cooperative, No Acute Distress HEENT: Atraumatic, PERRLA Neck: Supple, No JVD Lungs: Clear to Auscultation, Normal Air Movement Heart: Regular Rate, Normal S1, Normal S2, No Murmurs Abdomen: Normal Bowel Sounds, Soft, No Tenderness, No Hepatosplenomegaly, No Masses Extremities: No Clubbing, No Cyanosis, No Edema, Normal Pulses, No Tenderness/Swelling Skin: No Rashes, No Breakdown, No Significant Lesion Neuro: Normal Gait, Normal Speech, Strength at 5/5 X4 Ext, Normal Tone, Sensation Intact Psych/Mental Status: Mental Status NL, Mood NL Results Lab Laboratory Tests 04/11/20 03:17 A/P-Cardiology Admission Diagnosis Non-ST elevation myocardial infarction Coronary artery disease Hypertension Hyperlipidemia Assessment/Plan Non-ST elevation myocardial infarction, Cardec catheterization was carried out showing patent stents in the LAD and right coronary artery, totally occluded obtuse marginal branch, small to moderate size, attempt for intervention has failed to reestablish flow. Continue with maximizing medical therapy Coronary artery disease, extensive history, history of stents in 2006 to the mid and distal right coronary artery using mini vision and Cypher stents, late August 2006 at 3 stents to the LAD, last cardiac catheterization was carried out today showing patent stents. Occluded circumflex artery, troponin is up to 8. Continue with medical therapy, he is asymptomatic Hypertension, better controlled on current medication, continue on current medication monitor Hyperlipidemia, intolerant to statins secondary to myalgia, history of elevated liver enzymes. Obstructive sleep apnea on C Pap Mild bilateral carotid stenosis, continue to monitor History of antral gastritis maintained on PPI Diverticulosis Irritable bowel syndrome History of kidney stones Clinical Quality Measures AMI/AHF: ASA po Prior to arrival: EVANGELIST Valdez MD Apr 11, 2020 12:00
--- NOTE | 2020-04-11 12:15 | NUR ---
Called placed to pt family at this time, phone busy/no answer. Will attempt again at later time.
--- NOTE | 2020-04-11 17:17 | NUR ---
RD ASSESSMENT PMHx: hypercholesterolemia; HTN; CAD; gout; GERD; irritable bowel; PT INTERACTION: Pt was awake and pleasant during consult for MST score. Pt states current appetite is okay. Note avg PO intake 100% x2meal, per chart review. Pt states following a "no dairy" diet at home, and has no issues with chewing/swallowing food. Pt states no recent issues with n/v/c/d, and that his last BM was 04/10. Note pt not currently on bowel regimen per chart review. Pt states no recent wt changes. Note unable to determine recent wt hx, per chart review. Given PO intake and wt hx, pt does not meet criteria for malnutrition per ASPEN guidelines. Est. kcal needs: 1147-0221 kcal | 15-18 kcal/kg Est. Pro needs: 79-99 g Pro | 0.8-1.0 g Pro/kg PES STATEMENT: Given current PO intake, no nutrition diagnosis at this time (NO-1.1). INTERVENTION: Continue with current diet order of 2000mg Na diet. Will continue to follow and reassess as pt needs, intake, and status change. Mar JOHNSON MS RD [phone] cell
[2020-04-11] MEDS: ACETAMINOPHEN 500 MG TAB (TYLENOL) PO PRN (23:33)
[2020-04-12] MEDS: NS IV 1000 ML 1,000 ML IV SCH (07:55)
[2020-04-12] MEDS: ALLOPURINOL 300 MG (ZYLOPRIM) TAB PO SCH ×2 (08:50→17:23)
[2020-04-12] MEDS: LOSARTAN 50 MG (COZAAR) TAB PO SCH (08:50)
[2020-04-12] MEDS: ASPIRIN E.C. 81 MG (ECOTRIN) TAB PO SCH (08:50)
[2020-04-12] MEDS: CLOPIDOGREL 75 MG (PLAVIX) TABLET PO SCH (08:50)
[2020-04-12] MEDS: PANTOPRAZOLE 20 MG TABLET (PROTONIX) PO SCH (08:50)
--- NOTE | 2020-04-12 11:42 | Cardiology Progress Note ---
Subjective Date Seen by Provider: Apr 12, 2020 Time Seen by Provider: 11:41 Subjective/Events-last exam Patient is sitting up in bed, denies any further episode of chest pain Review of Systems General: No Chills, No Night Sweats, No Fatigue, No Malaise, No Appetite, No Other HEENT: No Head Aches, No Visual Changes, No Eye Pain, No Ear Pain, No Dysphasia, No Sinus Congestion, No Post Nasal Drip, No Sore Throat, No Other Pulmonary: No Dyspnea, No Cough, No Pleuritic Chest Pain, No Other Cardiovascular: No: Chest Pain, Palpitations, Orthopnea, Paroxysmal Noc. Dyspnea, Edema, Lt Headedness, Other Objective-Cardiology Exam Last Set of Vital Signs Vital Signs 04/12/20 16:37 Temp 36.2 Pulse 69 Resp 16 B/P (MAP) 126/78 (94) Pulse Ox 97 O2 Delivery Room Air Capillary Refill : Less Than 3 Seconds I&O Intake and Output 04/12/20 00:00 Intake Total 1060 ml Output Total 300 ml Balance 760 ml Intake Oral 1060 ml Output Urine Total 300 ml # Voids 4 General: Alert, Oriented X3, Cooperative, No Acute Distress HEENT: Atraumatic, PERRLA Neck: Supple, No JVD Lungs: Clear to Auscultation, Normal Air Movement Heart: Regular Rate, Normal S1, Normal S2, No Murmurs Abdomen: Normal Bowel Sounds, Soft, No Tenderness, No Hepatosplenomegaly, No Masses Extremities: No Clubbing, No Cyanosis, No Edema, Normal Pulses, No Tenderness/Swelling Skin: No Rashes, No Breakdown, No Significant Lesion Neuro: Normal Gait, Normal Speech, Strength at 5/5 X4 Ext, Normal Tone, Sensation Intact Psych/Mental Status: Mental Status NL, Mood NL A/P-Cardiology Admission Diagnosis Non-ST elevation myocardial infarction Coronary artery disease Hypertension Hyperlipidemia Assessment/Plan Non-ST elevation myocardial infarction, Cardec catheterization was carried out showing patent stents in the LAD and right coronary artery, totally occluded obtuse marginal branch, small to moderate size, attempt for intervention has failed to reestablish flow. Continue with maximizing medical therapy Coronary artery disease, extensive history, history of stents in 2006 to the mid and distal right coronary artery using mini vision and Cypher stents, late August 2006 at 3 stents to the LAD, last cardiac catheterization was carried out today showing patent stents. Occluded circumflex artery, troponin is up to 8. Continue with medical therapy, he is asymptomatic Hypertension, better controlled on current medication, continue on current medication monitor Hyperlipidemia, intolerant to statins secondary to myalgia, history of elevated liver enzymes. Obstructive sleep apnea on C Pap Mild bilateral carotid stenosis, continue to monitor History of antral gastritis maintained on PPI Diverticulosis Irritable bowel syndrome History of kidney stones Patient was seen and evaluated with Yumiko, examination performed, management plan was discussed, agree with the current scribed note, I made few changes to the note using Italic font Patient is laying down comfortably in bed, I will start on exercising and arrange for home care Possible discharge tomorrow. Clinical Quality Measures AMI/AHF: ASA po Prior to arrival: No YUMIKO DONOHUE Apr 12, 2020 11:42 EVANGELIST AMAYA MD Apr 12, 2020 16:58
[2020-04-12 11:55] VITALS: BP 127/78
--- NOTE | 2020-04-12 14:52 | NUR ---
patient to floor at this time accompanies by ALLAN Cerda
--- NOTE | 2020-04-12 14:58 | Physical Therapy Evaluation ---
PT Evaluation-General Medical Diagnosis Admission Date Apr 11, 2020 at 14:00 Medical Diagnosis: chest pain Onset Date: Apr 11, 2020 Therapy Diagnosis Therapy Diagnosis: impaired strength Height/Weight Height (Feet): 5 Height (Inches): 6.00 Weight (Pounds): 226 Weight (Ounces): 0.0 Precautions Precautions/Isolations: Fall Prevention, Standard Precautions Weight Bear Status Right Lower Extremity: Right Weight Bearing/Tolerated Left Lower Extremity: Left Weight Bearing/Tolerated Referral Physician: Yaimle Reason for Referral: Evaluation/Treatment Medical History Additional Medical History Surgeries Yes (l hip replacement, bilat rotator cuf repair) Gall Bladder, Tonsillectomy Respiratory Yes Cardiovascular Yes (TAKES BP MEDICATIONS "WHEN HE NEEDS TO" ) Palpitations, High Cholesterol, Hypertension, Coronary Artery Disease Neurological No Reproductive System Hx Reproductive Disorders: No Sexually Transmitted Disease: No HIV/AIDS: No Genitourinary Yes Kidney Stones Gastrointestinal Yes (S/P JUHI) Gastroesophageal Reflux, Polyps, Gall Bladder Disease, Irritable Bowel Musculoskeletal Yes (CHRONIC NECK/BACK AND BILATERAL KNEE PAIN ) Arthritis, Chronic Back Pain, Gout Endocrine No HEENT Yes (UVULECTOMY) Tonsilitis Loss of Vision: Bilateral Hearing Impairment: Denies Reviewed History: Yes Social History Home: Single Level Current Living Status: Alone Entry Into Home: Stairs With Railing PT Steps Into Home: 5 Prior Prior Level of Function SCALE: Activities may be completed with or without assistive devices. 0-Tvxvlmosda-ygfewqv completes the activity by him/herself with no assistance from a helper. 5-Set-up or Clean-up Assistance-helper sets up or cleans up; patient completes activity. [place] assists only prior to or following the activity. 4-Supervision or Touching Assistance-helper provides verbal cues and/or touching/steadying and/or contact guard assistance as patient completes activity. Assistance may be provided throughout the activity or intermittently. 3-Partial/Moderate Assistance-helper does LESS THAN HALF the effort. [place] lifts, holds or supports trunk or limbs, but provides less than half the effort. 2-Substantial/Maximal Assistance-helper does MORE THAN HALF the effort. [place] lifts or holds trunk or limbs and provides more than half the effort. 0-Vtbqpeqyl-lsthnf does ALL the effort. Patient does none of the effort to complete the activity. Or, the assistance of 2 or more helpers is required for the patient to complete the activity. If activity was not attempted, code reason: 7-Patient Refused. 9-Not Applicable-not attempted and the patient did not perform the activity before the current illness, exacerbation or injury. 10-Not Attempted due to Environmental Limitations-(lack of equipment, weather restraints, etc.). 88-Not Attempted due to Medical Conditions or Safety Concerns. Bed Mobility: 6 Transfers (B,C,W/C): 6 Gait: 6 Stairs: 6 Indoor Mobility (Ambulation): Independent Stairs: Independent PT Evaluation-Current Subjective Patient in room packing his own room to change rooms. Patient has 1-2/10 chest pain, agrees to PT. Pt/Family Goals to be independent at home Objective Patient Orientation: Person, Place, Situation ROM/Strength ROM Lower Extremities WNL Strength Lower Extremities LLE (hip flexion 4/5, knee flexion 5/5, knee extension 5/5, dorsiflexion 3/5), RLE (hip flexion 4/5, knee flexion 5/5, knee extension 5/5, dorsiflexion 3/5) Sensory Vision: Wears Glasses Hearing: Functional Sensation Right Lower Extremit: Intact Sensation Left Lower Extremity: Intact Transfers Sit to Stand (QC): 6 Chair/Aku-ii-Cmhcd Xfer(QC): 6 Gait Does the Patient Walk?: Yes Mode of Locomotion: Walk Anticipated Mode of Locomotion: Walk Walk 10 feet (QC): 6 Walk 50 ft with 2 Turns(QC): 6 Distance: 50' Gait Assistive Device: None Comments/Gait Description Patient walks about the room with independent and no assistive device, no LOB or unsteadiness. Balance Sitting Static: Normal Sitting Dynamic: Normal Standing Static: Normal Standing Dynamic: Normal Assessment/Needs Patient is independent with mobility. Rehab Potential: Good PT Plan Problem List Problem List: Functional Strength Treatment/Plan Treatment Plan: Discontinue PT Treatment Plan: Other Treatment Duration: Apr 12, 2020 Frequency: Patient and/or Family Agrees t: Yes Safety Risks/Education Patient Education: Gait Training, Transfer Techniques, Correct Positioning, Safety Issues Teaching Recipient: Patient Teaching Methods: Demonstration, Discussion Response to Teaching: Reinforcement Needed Discharge Recommendations Plan DC Time/GCodes Time In: 1425 Time Out: 1435 Total Billed Treatment Time: 10 Total Billed Treatment 1 visit EVL Danielle' PENNY DUTTON PT Apr 12, 2020 14:58
--- NOTE | 2020-04-12 15:33 | NUR ---
DISCHARGE PLANNING: Assisting DORI Dumont to determine patient preferences for Home Health Care. He reports that he would like [facility] and that he understands that a nurse and therapist come in to help. He knows it will not be daily. Patient says he has a helper that comes in two times a week or so and she assist with shopping and house cleaning etc. Patient has a CPAP he uses at night through [employer]. He is not currently on Oxygen so do not anticipate that need. Patient uses [facility] for his Pharmacy needs. He thinks he will have 2 new medications Plavix and Losartan. He hope to pick them up on his way home using curb side option.
[2020-04-12 16:37] VITALS: BP 126/78
[2020-04-12 20:05] VITALS: BP 116/71
[2020-04-12] MEDS: ACETAMINOPHEN 500 MG TAB (TYLENOL) PO PRN (23:15)
[2020-04-12 23:54] VITALS: BP 143/66
[2020-04-13 04:35] VITALS: BP 141/66
[2020-04-13] MEDS ORDERED: LOSA50TA63 PO (06:32)
[2020-04-13] MEDS ORDERED: ASPI-1238 PO (06:32)
[2020-04-13] MEDS ORDERED: PANT20TA18 PO (06:32)
[2020-04-13] MEDS ORDERED: CLOP75TA28 PO (06:32)
--- NOTE | 2020-04-13 06:33 | Discharge Inst-Post CATH ---
Discharge Inst-CATH/EP Problems Reviewed?: Yes Post Cardiac Cath/EP D/C Inst Follow Up/Plan Appointment with Dr Ovalle in 2 weeks <b>CARDIAC CATH/EP PROCEDURE DISCHARGE INSTRUCTIONS</b> ACTIVITY * Go Home directly and rest. * Limit activity of the leg (or wrist if it was used) for 7 days including aerobics, swimming, jogging, bicycling, etc. * Restrict stair-climbing for 7 days if possible, if not, climb up with your non-cath leg, then bring together on the same step. * Avoid lifting, pushing, pulling or excessive movement of the affected extremity for 7 days. * Customary sexual activity may be resumed after 2 days-use caution not to use a position that strains or causes pain to the affected extremity. * No driving for 24 hours. * NO SMOKING. * Avoid straining for bowel movements for 7 days. * Gentle walking on level ground is allowed. * Returning to work will depend on the type of procedure and the results. Your doctor will discuss this with you. CALL YOUR DOCTOR FOR ANY OF THE FOLLOWING: *If bleeding from the puncture site occurs- Apply gentle pressure to site with clean cloth and call your doctor or EMS. * If a knot or lump forms under the skin, increases in size, or causes pain. * If bruising appears to be worsening or moving further down your leg instead of disappearing. * Temperature above 101 F. CARE OF YOUR GROIN INCISION; * Bruising or purple discoloration of the skin near the puncture site is common. * You may shower only, no bathtub bathing for 5 days. Be careful to avoid slipping as your leg may feel stiff. * If a closure device was used on your femoral artery, please see the attached guide regarding care of the device and your leg. * Leave dressing on FOR 24 hours. CARE OF YOUR WRIST INCISION; * Bruising or purple discoloration of the skin near the puncture site is common. * You may shower. * DO NOT submerge wrist. * Leave dressing on FOR 24 hours. EVANGELIST OVALLE MD Apr 13, 2020 06:33
[2020-04-13 08:00] VITALS: BP 134/72
[2020-04-13] MEDS: ASPIRIN E.C. 81 MG (ECOTRIN) TAB PO SCH (08:38)
[2020-04-13] MEDS: CLOPIDOGREL 75 MG (PLAVIX) TABLET PO SCH (08:38)
[2020-04-13] MEDS: LOSARTAN 50 MG (COZAAR) TAB PO SCH (08:38)
[2020-04-13] MEDS: PANTOPRAZOLE 20 MG TABLET (PROTONIX) PO SCH (08:39)
[2020-04-13] MEDS: ALLOPURINOL 300 MG (ZYLOPRIM) TAB PO SCH (08:39)
--- NOTE | 2020-04-13 09:07 | Cardiology Discharge Summary ---
Discharge Summary Hospital Course Problems Reviewed?: Yes Hospital Course Date of Admission: Apr 11, 2020 at 14:00 Admission Diagnosis : Family Physician/Provider: Adam Giron MD Date of Discharge: 04/13/20 Discharge Diagnosis: [ non-ST elevation myocardial infarction Coronary artery disease Hypertension Hyperlipidemia] Hospital Course: [Non-ST elevation myocardial infarction, Cardec catheterization was carried out showing patent stents in the LAD and right coronary artery, totally occluded obtuse marginal branch, small to moderate size, attempt for intervention has failed to reestablish flow. Continue with maximizing medical therapy, started on physical therapy, planning for home health after discharge Coronary artery disease, extensive history, history of stents in 2006 to the mid and distal right coronary artery using mini vision and Cypher stents, late August 2006 at 3 stents to the LAD, last cardiac catheterization was carried out today showing patent stents. Occluded circumflex artery, troponin is up to 8. Continue with medical therapy, he is asymptomatic Hypertension, better controlled on current medication, continue on current medication monitor Hyperlipidemia, intolerant to statins secondary to myalgia, history of elevated liver enzymes. Obstructive sleep apnea on C Pap Mild bilateral carotid stenosis, continue to monitor History of antral gastritis maintained on PPI Diverticulosis Irritable bowel syndrome History of kidney stones ] Labs and Pending Lab Test: Home Meds Active Pantoprazole Sodium 20 Mg Tablet. 20 Mg PO DAILY Aspirin EC (Aspirin) 81 Mg Tablet. 81 Mg PO DAILY Losartan Potassium 50 Mg Tablet 50 Mg PO DAILY Clopidogrel (Clopidogrel Bisulfate) 75 Mg Tablet 75 Mg PO DAILY Reported Metoprolol Succinate 25 Mg Tab.er.24h 25 Mg PO DAILY PRN Centrum Men's Tablet (Multivits,Ca,Min/Iron/FA/Lycop) 1 Each Tablet 1 Tab PO DAILY Zyloprim (Allopurinol) 300 Mg Tab 300 Mg PO DAILY Assessment/Pt DC Instructions Arrangement for home care was made Appointment with Dr. AMAYA's office in 4 weeks Discharge Diet: Low Sodium Diet Activity as Tolerated: Yes Discharge Physical Examination Allergies: Coded Allergies: Penicillins (Verified Allergy, Unknown, 06/20/16) ezetimibe (Verified Allergy, Unknown, 06/20/16) iodine (Verified Allergy, Unknown, 06/20/16) simvastatin (Verified Allergy, Unknown, 06/20/16) General Appearance: No Apparent Distress, WD/WN HEENT: PERRL/EOMI, TMs Normal, Normal ENT Inspection, Pharynx Normal Respiratory: Chest Non Tender, Lungs Clear, Normal Breath Sounds, No Accessory Muscle Use, No Respiratory Distress Cardiovascular: Regular Rate, Rhythm, No Edema, No Gallop, No JVD, No Murmur, Normal Peripheral Pulses Gastrointestinal: Normal Bowel Sounds, No Organomegaly, No Pulsatile Mass, Non Tender, Soft Extremity: Normal Capillary Refill, Normal Inspection, Normal Range of Motion, Non Tender, No Pedal Edema Neurologic/Psychiatric: Alert, Oriented x3, No Motor/Sensory Deficits, Normal Mood/Affect, tax adjuster II-XII Norm as Tested Clinical Quality Measures AMI/AHF: ASA po Prior to arrival: EVANGELIST Valdez MD Apr 13, 2020 09:07
--- NOTE | 2020-04-13 10:47 | D/C HH Face to Face Order ---
D/C Face to Face Orders Reconcile Patient Problems Problems Reviewed?: Yes Instructions for Patient Via [facility], Patient Instructions/FollowUp: Appointment with Dr Ovalle in 2 weeks Physician to follow Patient: Appointment with Dr. Ovalle Discharge Diet for Home: ADA Diet Patient Data-Allergies,Ht & Wt Patient Allergies: Coded Allergies: Penicillins (Verified Allergy, Unknown, 06/20/16) ezetimibe (Verified Allergy, Unknown, 06/20/16) iodine (Verified Allergy, Unknown, 06/20/16) simvastatin (Verified Allergy, Unknown, 06/20/16) Height (Feet): 5 Height (Inches): 6.00 Weight (Pounds): 226 Weight (Ounces): 0.0 Home Health Need/Face to Face Date of Face to Face: Apr 13, 2020 Clinical Findings: Generalized weakness and fatigue I have seen Pt [id number]: Yes Discharged To: Home Diagnosis/Conditions: coronary artery disease Non-ST elevation myocardial infarction Patient is Homebound due to: Muscle weakness Homebound Status Due to the above stated illness, injury or surgical procedure (medical condition or diagnosis) and associated clinical findings, the patient is homebound because of his/her inability to leave home except with aid of a supportive device and/or person AND leaving the home requires a considerable and taxing effort or is medically contraindicated. Pt req the following assistanc: Aid of another person Home Health Nursing Orders Home Health Services Order: Nursing Services Home Health Infusion Therapy Line Start Date: Apr 10, 2020 Therapy Orders Therapy Orders: Physical Therapy Therapy Specific Orders: Increase strength/endurance, Provider maintenance therapy Certify Stmt I certify that this patient is under my care and that I, a nurse practitioner or a physician; a assistant track and field coach working with me, had a face to face encounter that - meets the physician face to face encounter requirements with this patient as dated. EVANGELIST OVALLE MD Apr 13, 2020 10:47
[2020-04-13 12:00] VITALS: BP 143/67
--- NOTE | 2020-04-13 12:59 | NUR ---
RX AND INST AND VERBALIZED UNDERSTANDING.
--- NOTE | 2020-04-13 13:30 | NUR ---
DC'D PER WC TO HOME.
--- NOTE | 2020-04-13 14:32 | NUR ---
CM/SS: Discharge to home with [facility]. They are notified that pt will be discharged on today. They will make contact with pt and arranged a time for admission.
== END 2020-04-13 13:30 | disposition home health service (06) | DRG 282 ==
LOC: EDUNIT# 10:14 → ER 10:16 → CATH 11:33 → ICU 13:56 → CSD 15:18 → CATH 04-11 14:00 → CSD 04-11 14:00 → 4TH 04-12 13:23
PROVIDERS: ADMIT Internal Medicine Cardiovascular Disease; ATTEND Internal Medicine Cardiovascular Disease
PROC: 4A023N7 Measurement of Cardiac Sampling and Pressure, Left Heart, Percutaneous Approach (ICD-10-PCS; principal; 2020-04-10)
PROC: B2111ZZ Fluoroscopy of Multiple Coronary Arteries using Low Osmolar Contrast (ICD-10-PCS; 2020-04-10)
PROC: 02JA3ZZ Inspection of Heart, Percutaneous Approach (ICD-10-PCS; 2020-04-10)
DX: I21.4 Non-ST elevation (NSTEMI) myocardial infarction (principal); I25.110 Atherosclerotic heart disease of native coronary artery with unstable angina pectoris; G47.33 Obstructive sleep apnea (adult) (pediatric); E78.00 Pure hypercholesterolemia, unspecified; E78.5 Hyperlipidemia, unspecified; I10 Essential (primary) hypertension; K58.9 Irritable bowel syndrome, unspecified; K21.9 Gastro-esophageal reflux disease without esophagitis; M19.91 Primary osteoarthritis, unspecified site; M54.9 Dorsalgia, unspecified; M10.9 Gout, unspecified; I65.23 Occlusion and stenosis of bilateral carotid arteries; K57.90 Diverticulosis of intestine, part unspecified, without perforation or abscess without bleeding; Z95.5 Presence of coronary angioplasty implant and graft; Z87.891 Personal history of nicotine dependence; Z88.0 Allergy status to penicillin
CPT/HCPCS: 36415; 71045; 80048; 80053; 80061; 83735; 84484; 85025; 85027; 85610; 85730; 93005; 93041; 93458

== ENCOUNTER → 2021-02-12 | Outpatient (CLI) | payer MEDICARE ==
[~2021-02-12] MED LIST changes: +CLOP75TA28 PO; +CYCL10TA25 PO; -CYCL10TA9 PO; +LOSA50TA63 PO; +PANT20TA18 PO
[2021-02-12 16:13] LABS: CALCIUM 9.3 MG/DL (8.5-10.1); CREATININE SERUM 1.17 MG/DL (0.60-1.30); PHOSPHORUS 2.6 MG/DL (2.3-4.7); POTASSIUM 3.9 MMOL/L (3.6-5.0); URIC ACID 5.1 MG/DL (2.6-7.2)
--- NOTE | 2021-02-12 18:00 | Diagnostic Imaging Report ---
EXAMINATION: Supine abdomen at 4:03 PM INDICATION: Testicular hypofunction, benign prostatic hyperplasia There is some gas in both the large and small bowel in a nonspecific fashion. This appearance is similar to the prior exam of 02/14/2020. There is also now at least a moderate amount of fecal material throughout the colon. There is no evidence for bowel obstruction. There is no mass or organomegaly appreciated. There are no pathological calcifications identified. The surgical clips overlying the right upper quadrant and the total hip prosthesis on the left seen previously are again evident. There is severe degenerative disc and bony disease throughout the lumbar spine. Moderately severe degenerative changes involving the right hip are also seen. These findings are similar to the prior exam. IMPRESSION: 1. The bowel gas pattern is nonspecific. There is no acute abnormality identified. 2. There is at least a moderate amount of fecal material throughout the colon. Dictated by: Dictated on workstation # [id number]
== END ==
LOC: RAD 15:22
PROVIDERS: ATTEND Urology
DX: N40.0 Benign prostatic hyperplasia without lower urinary tract symptoms (principal); E29.1 Testicular hypofunction; Z87.442 Personal history of urinary calculi
CPT/HCPCS: 36415; 74018; 80048; 84100; 84153; 84550

== ENCOUNTER 2021-08-17 08:12 | Emergency (ER) | payer MEDICARE ==
[~2021-08-17] VITALS: Ht 162.5 cm; Wt 98.8 kg
[2021-08-17] MEDS ORDERED: ACETAMINOPHEN 500 MG TAB (TYLENOL) PO ONE (08:30)
--- NOTE | 2021-08-17 08:34 | ED Cough/URI ---
General Stated Complaint: SORE THROAT,COUGH Source: patient Exam Limitations: no limitations History of Present Illness Date Seen by Provider: Aug 17, 2021 Time Seen by Provider: 08:15 Initial Comments 81-year-old male with past medical history of CAD with stenting, hypertension, hyperlipidemia coming in due to cough, sore throat, elevated temperature. Dev eloped a cough on Friday, went and got his second booster for Moderna COVID shot on Friday, temperature was elevated later that day. Developed sore throat yesterday with a persistent dry cough. His temperature he says has been around 100.1. Last had Tylenol last night. Denies any chest pain, shortness of breath, abdominal pain, nausea, vomiting, diarrhea, weakness, numbness, rash, headache, vision changes, or any other concerns. Allergies and Home Medications Allergies Coded Allergies: Penicillins (Verified Allergy, Unknown, 06/20/16) ezetimibe (Verified Allergy, Unknown, 06/20/16) iodine (Verified Allergy, Unknown, 06/20/16) simvastatin (Verified Allergy, Unknown, 06/20/16) Patient Home Medication List Home Medication List Reviewed: Yes Allopurinol (Zyloprim) 300 Mg Tab, 300 MG PO DAILY, (Reported) Entered as Reported by: ABILIO YBARRA on 08/08/09 0806 Aspirin (Aspirin EC) 81 Mg Tablet., 81 MG PO DAILY Prescribed by: EVANGELIST AMAYA on 04/13/20 0632 Clopidogrel Bisulfate (Clopidogrel) 75 Mg Tablet, 75 MG PO DAILY Prescribed by: EVANGELIST AMAYA on 04/13/20 06 Losartan Potassium (Losartan Potassium) 50 Mg Tablet, 50 MG PO DAILY Prescribed by: EVANGELIST AMAYA on 04/13/20 0632 Metoprolol Succinate (Metoprolol Succinate) 25 Mg Tab.er.24h, 25 MG PO DAILY PRN, (Reported) Entered as Reported by: SANFORD BUTLER on 09/09/17 1652 Multivits,Ca,Min/Iron/FA/Lycop (Centrum Men's Tablet) 1 Each Tablet, 1 TAB PO DAILY, (Reported) Entered as Reported by: PAMELA TA on 04/17/16 1247 Pantoprazole Sodium (Pantoprazole Sodium) 20 Mg Tablet., 20 MG PO DAILY Prescribed by: EVANGELIST AMAYA on 04/13/20 0632 Promethazine HCl (Promethazine Tablet) 25 Mg Tablet, 25 MG PO Q6H PRN for NAUSEA/VOMITING Prescribed by: JAKE HARRIS on 08/17/21 0850 Review of Systems Review of Systems Constitutional: No chills EENTM: No nose congestion Respiratory: cough; No short of breath Cardiovascular: No chest pain Gastrointestinal: No abdominal pain Genitourinary: no symptoms reported Musculoskeletal: no symptoms reported Skin: no symptoms reported Psychiatric/Neurological: No Symptoms Reported Hematologic/Lymphatic: No Symptoms Reported Immunological/Allergic: no symptoms reported All Other Systems Reviewed Negative Unless Noted: Yes Past Ipkzduh-Easexe-Wkqwma Hx Patient Social History Tobacco Use?: No Substance use?: No Alcohol Use?: Yes Alcohol Frequency: Once in a while Seasonal Allergies Seasonal Allergies: No Past Medical History Surgeries: Yes (l hip replacement, bilat rotator cuf repair) Cardiac, Coronary Stent, Gallbladder, Orthopedic, Tonsillectomy Respiratory: Yes Sleep Apnea Currently Using CPAP: Yes Cardiac: Yes (TAKES BP MEDICATIONS "WHEN HE NEEDS TO" ) Chronic Edema/Swelling, Coronary Artery Disease, High Cholesterol, Hypertension Neurological: No Reproductive Disorders: No Sexually Transmitted Disease: No HIV/AIDS: No Genitourinary: Yes Kidney Stones Gastrointestinal: Yes (S/P JUHI) Gastroesophageal Reflux, Polyps, Gall Bladder Disease, Irritable Bowel Musculoskeletal: Yes (CHRONIC NECK/BACK AND BILATERAL KNEE PAIN ) Arthritis, Chronic Back Pain, Gout Endocrine: No HEENT: Yes (UVULECTOMY) Tonsilitis Loss of Vision: Bilateral Hearing Impairment: Denies Cancer: No Psychosocial: No Integumentary: No Blood Disorders: No Adverse Reaction/Blood Tranf: No (N/A) Family Medical History No Pertinent Family Hx Physical Exam Vital Signs - First Documented 08/17/21 08:23 Temp 37.3 Pulse 90 Resp 16 B/P (MAP) 172/103 (126) Pulse Ox 97 O2 Delivery Room Air Capillary Refill : Height: 5'6.00" Weight: 226lbs. 0.0oz. 102.548606rh; 38.71 BMI Method:Stated General Appearance: WD/WN, no apparent distress Eyes: Bilateral Eye Normal Inspection, Bilateral Eye PERRL HEENT: PERRL/EOMI, normal ENT inspection, TMs normal, pharynx normal; No pharyngeal erythema, No tonsillar exudate Neck: non-tender, full range of motion, supple, normal inspection Respiratory: chest non-tender, lungs clear, normal breath sounds, no respiratory distress, no accessory muscle use Cardiovascular: regular rate, rhythm, no edema, no murmur Gastrointestinal: normal bowel sounds, non tender, soft; No distended, No guarding, No rebound Extremities: normal range of motion, non-tender, normal inspection, no pedal edema, no calf tenderness, normal capillary refill Neurologic/Psychiatric: no motor/sensory deficits, alert, normal mood/affect Skin: normal color, warm/dry Lymphatic: no adenopathy Progress/Results/Core Measures Suspected Sepsis SIRS Temperature: Pulse: Respiratory Rate: Blood Pressure / Mean: Results/Orders Lab Results Laboratory Tests Test 08/17/21 08:27 Range/Units Influenza Type A (RT-PCR) Not Detected Not Detecte Influenza Type B (RT-PCR) Not Detected Not Detecte SARS-CoV-2 RNA (RT-PCR) Not Detected Not Detecte My Orders Orders - JAKE HARRIS MD Covid 19 Inhouse Test (08/17/21 08:19) Influenza A And B By Pcr (08/17/21 08:19) Chest 1 View, Ap/Pa Only (08/17/21 08:30) Acetaminophen Tablet (Tylenol Tablet) (08/17/21 08:30) Vital Signs/I&O 08/17/21 08:23 Temp 37.3 Pulse 90 Resp 16 B/P (MAP) 172/103 (126) Pulse Ox 97 O2 Delivery Room Air Capillary Refill : Progress Note : Progress Note 81-year-old male with above history coming in due to cough, elevated temperature, sore throat. ABCs were intact and vitals were stable on presentation. Physical exam reassuring with no focal abnormalities. He specifi greg came mostly for a COVID test which was ordered. Chest x-ray also ordered. Given Tylenol for the sore throat. COVID and flu testing negative. Chest x-ray clear with no acute abnormalities. On reassessment he continues to be well-appearing with normal vitals. I believe he stable for discharge with outpatient follow-up. He was sent home with strict return precautions. Diagnostic Imaging Diagonstic Imaging: Xray Plain Films/CT/US/NM/MRI: chest Comments [facility] [place], [place] NAME: MONICA JAMES [facility] REC#: [id number] PT STATUS: REG ER : 1940 PHYSICIAN: JAKE HARRIS MD ADMIT DATE: 08/17/21/ER Draft Date of Exam:08/17/21 CHEST 1 VIEW, AP/PA ONLY INDICATION: Cough and fever. Frontal chest obtained at 08:53 a.m. and compared to 04/10/2020 FINDINGS: Heart and mediastinal silhouette are normal in appearance. Lungs appear clear except for some minimal linear scarring in the left base. There is no pneumothorax or pleural fluid. IMPRESSION: Stable linear scarring left lung base. Otherwise negative chest. Dictated on workstation # [id number] Dict: 08/17/21 0851 Trans: 08/17/21 0855 [id number] Interpreted by: MP BLAND MD Electronically signed by: Departure Impression Primary Impression: Sore throat Additional Impression: Fever Qualified Codes: R50.83 - Postvaccination fever Disposition: 01 HOME, SELF-CARE Condition: Stable Departure-Patient Inst. Decision time for Depature: 09:03 Referrals: RYAN LEWIS MD (PCP/Family) Primary Care Physician Patient Instructions: Viral Pharyngitis (DC), Fever, Adult (DC) Add. Discharge Instructions: Your COVID test and flu test were negative. Your chest x-ray is clear. Take Tylenol as needed for sore throat or elevated temperature. A lot of your symptoms could be related to your vaccination, but it is likely also have a virus that is going around right now. Follow-up with your regular doctor if you are not improving in the next 3 to 5 days. Scripts Promethazine HCl (Promethazine Tablet) 25 Mg Tablet 25 MG PO Q6H PRN for NAUSEA/VOMITING for 5 Days, #20 TAB Prov: JAKE HARRIS MD 08/17/21 JAKE HARRIS MD Aug 17, 2021 08:33
[2021-08-17] MEDS ORDERED: PROM25TA14 PO (08:50)
--- NOTE | 2021-08-17 08:56 | Diagnostic Imaging Report ---
INDICATION: Cough and fever. Frontal chest obtained at 08:53 a.m. and compared to 04/10/2020 FINDINGS: Heart and mediastinal silhouette are normal in appearance. Lungs appear clear except for some minimal linear scarring in the left base. There is no pneumothorax or pleural fluid. IMPRESSION: Stable linear scarring left lung base. Otherwise negative chest. Dictated by: Dictated on workstation # [id number]
[2021-08-17 09:26] VITALS: BP 151/82
[2021-08-17] MEDS ORDERED: PROM473S9 PO ×2 (14:48→14:53)
== END 2021-08-17 09:26 | disposition home or self-care (01) ==
LOC: EDUNIT# 08:12 → ER 08:14
DX: J02.9 Acute pharyngitis, unspecified (principal); R50.83 Postvaccination fever; G47.30 Sleep apnea, unspecified; Z99.89 Dependence on other enabling machines and devices; Z20.822 Contact with and (suspected) exposure to COVID-19
CPT/HCPCS: 71045; 87636

== ENCOUNTER 2021-08-24 10:27 | Emergency (ER) | payer MEDICARE ==
[~2021-08-24] VITALS: Ht 162 cm; Wt 98.0 kg
[~2021-08-24 10:27] MED LIST changes: +PROM25TA14 PO; +PROM473S9 PO
--- NOTE | 2021-08-24 11:05 | ED Cough/URI ---
General Chief Complaint: Cough/Cold/Flu Symptoms Stated Complaint: COUGH - FEVER - CONGESTION - UNABLE TO SLEEP Nursing Triage Note: ARRIVED VIA AMB TO ROOM 10. STATES HE HAS HAD A COUGH AND COUGHING UP GREEN SPUTUM FOR 11 DAYS WITH A LOW GRADE FEVER. HAS BEEN SEEN HERE AND HIS DR. HAS DONE X4 COVID SWABS OVER THE LAST WEEK INCLUDING TODAY THAT WAS NEG. STATES HE IN ON AB DROPS FOR EYED DUE TO MATTING. Source: patient Exam Limitations: no limitations History of Present Illness Date Seen by Provider: Aug 24, 2021 Time Seen by Provider: 11:02 Initial Comments Patient is a 81-year-old male who presents ED for a "hacky" cough. Patient states he has had a cough for the past 11 days. States he is coughing up green sputum worse at night and in the morning when he lays down. Currently on promethazine with codeine for the cough with some improvement but not at night. Reports a low-grade temperature 100.4. Reports some mild body aches and hoarseness. Reports scratchy throat. States he has had 4 negative COVID swabs in the past 4 days. Did get his COVID booster on Friday. Denies history of COPD, asthma. History of coronary stents. Does state he has some mild shortness of breath without any leg swelling. No recent travels or surgeries. States he had some eye congestion with drainage earlier this week and saw the regulatory submissions associate and was placed on eyedrops with improvement. Thought this was related to a viral infection. States he was seen here last Friday concerning for a viral infection. Up-to-date on his COVID-vaccine and boosters. Vital signs stable. No wheezing, abdominal pain, vomiting, diarrhea, lower extremity swelling or weakness. Allergies and Home Medications Allergies Coded Allergies: Penicillins (Verified Allergy, Unknown, 06/20/16) ezetimibe (Verified Allergy, Unknown, 06/20/16) iodine (Verified Allergy, Unknown, 06/20/16) simvastatin (Verified Allergy, Unknown, 06/20/16) Patient Home Medication List Home Medication List Reviewed: Yes Allopurinol (Zyloprim) 300 Mg Tab, 300 MG PO DAILY, (Reported) Entered as Reported by: ABILIO YBARRA on 08/08/09 0806 Aspirin (Aspirin EC) 81 Mg Tablet., 81 MG PO DAILY Prescribed by: EVANGELIST AMAYA on 04/13/20 0632 Clopidogrel Bisulfate (Clopidogrel) 75 Mg Tablet, 75 MG PO DAILY Prescribed by: EVANGELIST AMAYA on 04/13/20 0632 Doxycycline Monohydrate (Doxycycline Monohydrate) 100 Mg Tablet, 100 MG PO BID Prescribed by: KELY WELDON on 08/24/21 1216 Losartan Potassium (Losartan Potassium) 50 Mg Tablet, 50 MG PO DAILY Prescribed by: EVANGELIST AMAYA on 04/13/20 0632 Metoprolol Succinate (Metoprolol Succinate) 25 Mg Tab.er.24h, 25 MG PO DAILY PRN, (Reported) Entered as Reported by: SANFORD BUTLER on 09/09/17 1652 Multivits,Ca,Min/Iron/FA/Lycop (Centrum Men's Tablet) 1 Each Tablet, 1 TAB PO DAILY, (Reported) Entered as Reported by: PAMELA TA on 04/17/16 1247 Pantoprazole Sodium (Pantoprazole Sodium) 20 Mg Tablet.dr, 20 MG PO DAILY Prescribed by: EVANGELIST AMAYA on 04/13/20 0632 Promethazine HCl (Promethazine Tablet) 25 Mg Tablet, 25 MG PO Q6H PRN for NAUSEA/VOMITING Prescribed by: JAKE HARRIS on 08/17/21 0850 Promethazine HCl/Codeine (Promethazine-Codeine Solution) 6.25 Mg-10 Mg/5 Ml Syrup, 5 ML PO Q8H PRN for cough Prescribed by: JAKE HARRIS on 08/17/21 1453 Review of Systems Review of Systems Constitutional: No chills, No diaphoresis; malaise, weakness EENTM: nose congestion; No blurred vision, No double vision Respiratory: cough, short of breath Cardiovascular: No chest pain, No edema Gastrointestinal: No abdominal pain, No diarrhea, No nausea, No vomiting Genitourinary: No decreased output Musculoskeletal: No back pain Skin: No change in color, No change in hair/nails All Other Systems Reviewed Negative Unless Noted: Yes Past Xonhecx-Lmjoqt-Lwzeed Hx Patient Social History Smoking Status: Former Smoker Substance use?: No Alcohol Use?: Yes Alcohol Frequency: Once in a while Immunizations Up To Date First/Initial COVID19 Vaccinat: 2020 Second COVID19 Vaccination Albert: 2021 Third COVID19 Vaccination Date: 2020 COVID19 Vaccine Subgrade Tester: MARIELLE Seasonal Allergies Seasonal Allergies: No Past Medical History Surgeries: Yes (l hip replacement, bilat rotator cuf repair) Cardiac, Coronary Stent, Gallbladder, Orthopedic, Tonsillectomy Respiratory: Yes Sleep Apnea Currently Using CPAP: Yes Cardiac: Yes (TAKES BP MEDICATIONS "WHEN HE NEEDS TO" ) Chronic Edema/Swelling, Coronary Artery Disease, High Cholesterol, Hypertension Neurological: No Reproductive Disorders: No Sexually Transmitted Disease: No HIV/AIDS: No Genitourinary: Yes Kidney Stones Gastrointestinal: Yes (S/P JUHI) Gastroesophageal Reflux, Polyps, Gall Bladder Disease, Irritable Bowel Musculoskeletal: Yes (CHRONIC NECK/BACK AND BILATERAL KNEE PAIN ) Arthritis, Chronic Back Pain, Gout Endocrine: No HEENT: Yes (UVULECTOMY) Tonsilitis Loss of Vision: Bilateral Hearing Impairment: Denies Cancer: No Psychosocial: No Integumentary: No Blood Disorders: No Adverse Reaction/Blood Tranf: No (N/A) Family Medical History No Pertinent Family Hx Physical Exam Vital Signs - First Documented 08/24/21 10:45 Temp 36.4 Pulse 92 Resp 16 B/P (MAP) 147/77 (100) Pulse Ox 97 O2 Delivery Room Air Capillary Refill : Less Than 3 Seconds Height: 5'6.00" Weight: 226lbs. 0.0oz. 102.138807ue; 37.00 BMI Method:Stated General Appearance: WD/WN, no apparent distress Eyes: Bilateral Eye Normal Inspection, Bilateral Eye PERRL, Bilateral Eye EOMI HEENT: PERRL/EOMI, normal ENT inspection, TMs normal, pharynx normal Neck: non-tender, full range of motion, supple, normal inspection Respiratory: chest non-tender, lungs clear, normal breath sounds, no respir atory distress, no accessory muscle use Cardiovascular: regular rate, rhythm, no edema, no gallop, no JVD Gastrointestinal: normal bowel sounds, non tender, soft, no organomegaly Extremities: normal range of motion, non-tender, normal inspection, no pedal edema Neurologic/Psychiatric: expansion envelope maker hand II-XII nml as tested, no motor/sensory deficits, alert, normal mood/affect, oriented x 3 Skin: normal color, warm/dry Progress/Results/Core Measures Suspected Sepsis SIRS Temperature: Pulse: 92 Respiratory Rate: 16 Blood Pressure 147 /77 Mean: 100 Results/Orders Lab Results Laboratory Tests Test 08/24/21 12:07 Range/Units My Orders Orders - JAKE CHOWDARY Chest 1 View, Ap/Pa Only (08/24/21 11:01) Ua Culture If Indicated (08/24/21 12:03) Vital Signs/I&O 08/24/21 10:45 Temp 36.4 Pulse 92 Resp 16 B/P (MAP) 147/77 (100) Pulse Ox 97 O2 Delivery Room Air Capillary Refill : Less Than 3 Seconds Blood Pressure Mean: 100 Departure Communication (PCP) Patient is a 81-year-old male who presents the ED with dry hacking cough with some green sputum production in the morning. Reports hoarseness. States he had 4 negative COVID swabs at home. Patient was put on promethazine with codeine for his cough. Coughing is worse at night states he is have difficulty sleeping.'s concern for some mild shortness of breath with the cough. Denies any leg swelling. History of coronary stents. No chest pain, abdominal pain vomiting, diarrhea fever. Vital signs stable. Does not appear in acute distress. No wheezing noted. Chest x-ray was negative for pneumonia. Due to the continuous cough will treat for potential atypical type infection with doxycycline. States he does not tolerate azithromycin. Patient does not appear in any distress. Patient is anxious. Continue with medication at home. Follow-up your PCP in 2 to 3 days for evaluation. Impression Primary Impression: Cough Disposition: 01 HOME, SELF-CARE Condition: Stable Departure-Patient Inst. Decision time for Depature: 12:16 Referrals: RYAN LEWIS MD (PCP/Family) Primary Care Physician Patient Instructions: Cough, Adult ED Scripts Doxycycline Monohydrate (Doxycycline Monohydrate) 100 Mg Tablet 100 MG PO BID for 7 Days, #14 TAB Prov: JAKE CHOWDARY 08/24/21 JAKE CHOWDARY Aug 24, 2021 11:05
--- NOTE | 2021-08-24 11:57 | Diagnostic Imaging Report ---
INDICATION: Cough. COMPARISON: 08/17/2021. FINDINGS: Single frontal view of the chest demonstrates normal heart size and pulmonary vascularity. The lungs show minimal scarring and/or atelectasis in the left base, but are otherwise clear. No large pleural effusion or pneumothorax is seen. The visualized osseous structures show no acute abnormalities. IMPRESSION: 1. No acute cardiopulmonary process. Dictated by: Dictated on workstation # [id number]
[2021-08-24 12:12] LABS: BILIRUBIN,URINE NEGATIVE (NEGATIVE); CLARITY,URINE CLEAR; COLOR,URINE YELLOW; GLUCOSE, URINE (UA) NEGATIVE (NEGATIVE); KETONES,URINE NEGATIVE (NEGATIVE); LEUKOCYTE ESTERASE ,URINE NEGATIVE (NEGATIVE); NITRITE,URINE NEGATIVE (NEGATIVE); PROTEIN,URINE NEGATIVE (NEGATIVE)
[2021-08-24] MEDS ORDERED: DOXY100T31 PO (12:16)
[2021-08-24 12:21] VITALS: BP 130/69
[2021-08-24 12:25] LABS: BACTERIA,URINE NEGATIVE /HPF; SQUAMOUS EPITHELIAL CELL,UR RARE /HPF
== END 2021-08-24 12:21 | disposition home or self-care (01) ==
LOC: EDUNIT# 10:27 → ER 10:29
DX: R05.1 Acute cough (principal); G47.30 Sleep apnea, unspecified; Z99.89 Dependence on other enabling machines and devices; Z87.891 Personal history of nicotine dependence
CPT/HCPCS: 71045; 81000

== ENCOUNTER → 2021-10-30 | Outpatient (CLI) | payer MEDICARE ==
[~2021-10-30] MED LIST changes: +DOXY100T31 PO
== END ==
LOC: CARD 10:41
PROVIDERS: ATTEND Physician Assistant
DX: I10 Essential (primary) hypertension (principal); I25.10 Atherosclerotic heart disease of native coronary artery without angina pectoris
CPT/HCPCS: 93306

== ENCOUNTER → 2021-12-05 | Outpatient (CLI) | payer MEDICARE ==
--- NOTE | 2021-12-05 13:34 | Diagnostic Imaging Report ---
INDICATION: L flank pain - h/o stones. COMPARISON: 02/12/2021. FINDINGS: Two frontal supine radiographic views of the abdomen were obtained and demonstrate nondistended loops of small bowel. There is no large collection of free peritoneal air. Moderate air and stool are seen scattered throughout the colon. No unexpected extraosseous calcifications or radiopaque foreign bodies are seen. Bony structures show no gross acute abnormalities. IMPRESSION: 1. Nonobstructed small bowel gas pattern. 2. Moderate colonic air and stool. Please correlate for constipation. Dictated by: Dictated on workstation # [id number]
--- NOTE | 2021-12-05 13:41 | Diagnostic Imaging Report ---
PROCEDURE: CT abdomen and pelvis without contrast. TECHNIQUE: Multiple contiguous axial images were obtained through the abdomen and pelvis without the use of intravenous contrast. Auto Exposure Controls were utilized during the CT exam to meet ALARA standards for radiation dose reduction. INDICATION: Left flank pain and history of kidney stones. Comparison is made with prior CT from 12/04/2018. FINDINGS: The lung bases are clear of acute infiltrates. There is some linear scarring in the left lower lobe. The liver is unremarkable. Gallbladder is surgically absent. There is no biliary ductal dilatation. Pancreas and spleen are unremarkable. No adrenal mass is identified. Kidneys are without calculi. There is a cortical low-attenuation lesion in the left kidney suggestive of a cyst. This appears stable. No ureteral calculi or hydronephrosis is seen. No bladder calculi are detected. Aorta is calcified but nonaneurysmal. Small and large bowel loops demonstrate extensive diverticulosis of the sigmoid and descending colon, but no evidence of acute diverticulitis. There is no free fluid or fluid collection identified. Artifact through the pelvis is noted from patient's left hip prosthesis. There is a fat-containing umbilical hernia as well as a fat-containing left inguinal hernia. IMPRESSION: 1. No evidence of urinary tract calculi or obstruction. 2. Extensive diverticulosis without evidence of acute diverticulitis. 3. Fat-containing umbilical and left inguinal hernia. Dictated by: Dictated on workstation # [id number]
== END ==
LOC: RAD 13:15
PROVIDERS: ATTEND Urology
DX: K57.30 Diverticulosis of large intestine without perforation or abscess without bleeding (principal); K40.90 Unilateral inguinal hernia, without obstruction or gangrene, not specified as recurrent; Z87.442 Personal history of urinary calculi
CPT/HCPCS: 74018; 74176

== ENCOUNTER 2021-12-24 14:33 | Outpatient (RCR) | payer MEDICARE | END 2022-01-13 | disposition home or self-care (01) | LOC: CR3 14:33 | PROVIDERS: ATTEND Internal Medicine Cardiovascular Disease | DX: Z29.8 Encounter for other specified prophylactic measures (principal) ==

== ENCOUNTER → 2022-02-11 | Outpatient (CLI) | payer MEDICARE ==
[2022-02-11 16:07] LABS: CALCIUM 9.5 MG/DL (8.5-10.1); CREATININE SERUM 1.32 MG/DL (0.60-1.30); PHOSPHORUS 3.1 MG/DL (2.3-4.7); URIC ACID 6.2 MG/DL (2.6-7.2)
--- NOTE | 2022-02-11 18:32 | Diagnostic Imaging Report ---
EXAMINATION: Abdomen 1 view HISTORY: Testicular hypofunction COMPARISON: 12/05/2021 FINDINGS: No dilated bowel or free air. Upper abdomen is excluded from the [id number]-tker. There is left hip arthroplasty. Lumbar spine shows degenerative disc disease. IMPRESSION: 1. Normal bowel gas pattern. Dictated by: Dictated on workstation # [id number]
== END ==
LOC: RAD 14:56
PROVIDERS: ATTEND Urology
DX: N40.0 Benign prostatic hyperplasia without lower urinary tract symptoms (principal); E29.1 Testicular hypofunction; Z87.442 Personal history of urinary calculi
CPT/HCPCS: 36415; 74018; 80048; 84100; 84153; 84550

== ENCOUNTER 2022-10-23 10:30 | Emergency (ER) | payer MEDICARE ==
[~2022-10-23] VITALS: Ht 162 cm; Wt 102.0 kg
--- NOTE | 2022-10-23 10:51 | ED Chest Pain ---
General Chief Complaint: Chest Pain Stated Complaint: CHEST PAINS Nursing Triage Note: PT AMB TO RM 3 PT STATES HAS C/P 09/23 YESTERDAY TOOK A NITRO AND PAIN RELIEVED. PT DENIES C/P TODAY. STATES FEELS A LITTLE WEAKNESS Source: patient Exam Limitations: no limitations History of Present Illness Date Seen by Provider: Oct 23, 2022 Time Seen by Provider: 10:31 Initial Comments 82-year-old male with past medical history most pertinent for CAD with stenting coming in due to chest pain. Had an episode 2 days ago where it lasted a couple minutes and he took a nitro which fix it. Had another episode around 1 PM yesterday for couple minutes where he took nitro and it fixed again. He has felt "off since then and slightly weak generally. He has been ambulating, eating, and no other significant complaints other than he states he felt "warm". He has been around people, and is unsure if he could have COVID. Denies any cough, congestion, nausea, vomiting, unusual diarrhea, abdominal pain, focal weakness or numbness, headache, vision changes, or any other concerns. Allergies and Home Medications Allergies Coded Allergies: Penicillins (Verified Allergy, Unknown, 06/20/16) ezetimibe (Verified Allergy, Unknown, 06/20/16) iodine (Verified Allergy, Unknown, 06/20/16) simvastatin (Verified Allergy, Unknown, 06/20/16) Patient Home Medication List Home Medication List Reviewed: Yes Allopurinol (Zyloprim) 300 Mg Tab, 300 MG PO DAILY, (Reported) Entered as Reported by: ABILIO YBARRA on 08/08/09 0806 Aspirin (Aspirin EC) 81 Mg Tablet.dr, 81 MG PO DAILY Prescribed by: EVANGELIST OVALLE on 04/13/20 0632 Clopidogrel Bisulfate (Clopidogrel) 75 Mg Tablet, 75 MG PO DAILY Prescribed by: EVANGELIST OVALLE on 04/13/20 0632 Doxycycline Monohydrate (Doxycycline Monohydrate) 100 Mg Tablet, 100 MG PO BID Prescribed by: KELY WELDON on 08/24/21 1216 Losartan Potassium (Losartan Potassium) 50 Mg Tablet, 50 MG PO DAILY Prescribed by: EVANGELIST OVALLE on 04/13/20 0632 Metoprolol Succinate (Metoprolol Succinate) 25 Mg Tab.er.24h, 25 MG PO DAILY PRN, (Reported) Entered as Reported by: SANFORD BUTLER on 09/09/17 1652 Multivits,Ca,Min/Iron/FA/Lycop (Centrum Men's Tablet) 1 Each Tablet, 1 TAB PO DAILY, (Reported) Entered as Reported by: PAMELA TA on 04/17/16 1247 Pantoprazole Sodium (Pantoprazole Sodium) 20 Mg Tablet.dr, 20 MG PO DAILY Prescribed by: EVANGELIST OVALLE on 04/13/20 0632 Promethazine HCl (Promethazine Tablet) 25 Mg Tablet, 25 MG PO Q6H PRN for NAUSEA/VOMITING Prescribed by: JAKE HARRIS on 08/17/21 0850 Promethazine HCl/Codeine (Promethazine-Codeine Solution) 6.25 Mg-10 Mg/5 Ml Syrup, 5 ML PO Q8H PRN for cough Prescribed by: JAKE HARRIS on 08/17/21 1453 Review of Systems Review of Systems Constitutional: malaise EENTM: No Symptoms Reported Respiratory: No Symptoms Reported Cardiovascular: See HPI Gastrointestinal: No Symptoms Reported Genitourinary: No Symptoms Reported Musculoskeletal: no symptoms reported Skin: no symptoms reported Psychiatric/Neurological: No Symptoms Reported Endocrine: No Symptoms Reported Past Hnxcjwt-Qwqpof-Nhvglk Hx Patient Social History Tobacco Use?: No Substance use?: No Alcohol Use?: No Pt feels they are or have been: No Immunizations Up To Date First/Initial COVID19 Vaccinat: UNKNOWN Second COVID19 Vaccination Albert: UNKNOWN Third COVID19 Vaccination Date: UNKNOWN Seasonal Allergies Seasonal Allergies: No Past Medical History Surgery/Hospitalization HX: STENTS Surgeries: Yes (l hip replacement, bilat rotator cuf repair) Cardiac, Coronary Stent, Gallbladder, Orthopedic, Tonsillectomy Respiratory: Yes Sleep Apnea Currently Using CPAP: Yes Cardiac: Yes (TAKES BP MEDICATIONS "WHEN HE NEEDS TO" ) Chronic Edema/Swelling, Coronary Artery Disease, High Cholesterol, Hypertension Neurological: No Reproductive Disorders: No Sexually Transmitted Disease: No HIV/AIDS: No Genitourinary: Yes Kidney Stones Gastrointestinal: Yes (S/P JUHI) Gastroesophageal Reflux, Polyps, Gall Bladder Disease, Irritable Bowel Musculoskeletal: Yes (CHRONIC NECK/BACK AND BILATERAL KNEE PAIN ) Arthritis, Chronic Back Pain, Gout Endocrine: No HEENT: Yes (UVULECTOMY) Tonsilitis Loss of Vision: Bilateral Hearing Impairment: Denies Cancer: No Psychosocial: No Integumentary: No Blood Disorders: No Adverse Reaction/Blood Tranf: No (N/A) Family Medical History No Pertinent Family Hx Physical Exam Vital Signs Vital Signs - First Documented 10/23/22 10:35 Temp 37.0 Pulse 79 Resp 18 B/P (MAP) 157/86 (109) Pulse Ox 96 Capillary Refill : Less Than 3 Seconds Height, Weight, BMI Height: 5'6.00" Weight: 226lbs. 0.0oz. [id number]; 38.00 BMI Method:Stated General Appearance: No Apparent Distress, WD/WN HEENT: PERRL/EOMI, Normal ENT Inspection, Pharynx Normal Neck: Full Range of Motion, Normal Inspection, Non Tender, Supple Respiratory: Chest Non Tender, Lungs Clear, Normal Breath Sounds, No Accessory Muscle Use, No Respiratory Distress Cardiovascular: Regular Rate, Rhythm, Normal Peripheral Pulses Gastrointestinal: Normal Bowel Sounds, Non Tender, Soft; No Distended, No Guarding Extremity: Normal Capillary Refill, Normal Inspection, Normal Range of Motion, Non Tender, No Calf Tenderness, Pedal Edema (Trace) Neurologic/Psychiatric: Alert, Oriented x3, No Motor/Sensory Deficits, Normal Mood/Affect Skin: Normal Color, Warm/Dry Progress/Results/Core Measures Results/Orders Lab Results Laboratory Tests Test 10/23/22 10:35 10/23/22 10:52 10/23/22 11:45 Range/Units White Blood Count 10.8 4.3-11.0 10^3/uL Red Blood Count 4.51 4.30-5.52 10^6/uL Hemoglobin 14.6 13.3-17.7 g/dL Hematocrit 43 40-54 % Mean Corpuscular Volume 96 80-99 fL Mean Corpuscular Hemoglobin 32 25-34 pg Mean Corpuscular Hemoglobin Concent 34 32-36 g/dL Red Cell Distribution Width 13.1 10.0-14.5 % Platelet Count 316 130-400 10^3/uL Mean Platelet Volume 9.4 9.0-12.2 fL Immature Granulocyte % (Auto) 1 % Neutrophils (%) (Auto) 74 42-75 % Lymphocytes (%) (Auto) 18 12-44 % Monocytes (%) (Auto) 7 0-12 % Eosinophils (%) (Auto) 0 0-10 % Basophils (%) (Auto) 0 0-10 % Neutrophils # (Auto) 8.0 H 1.8-7.8 10^3/uL Lymphocytes # (Auto) 2.0 1.0-4.0 10^3/uL Monocytes # (Auto) 0.7 0.0-1.0 10^3/uL Eosinophils # (Auto) 0.0 0.0-0.3 10^3/uL Basophils # (Auto) 0.0 0.0-0.1 10^3/uL Immature Granulocyte # (Auto) 0.1 0.0-0.1 10^3/uL Prothrombin Time 12.7 12.2-14.7 SEC INR Comment 0.9 0.8-1.4 Activated Partial Thromboplast Time 28 24-35 SEC Sodium Level 138 135-145 MMOL/L Potassium Level 4.1 3.6-5.0 MMOL/L Chloride Level 106 98-107 MMOL/L Carbon Dioxide Level 21 21-32 MMOL/L Anion Gap 11 5-14 MMOL/L Blood Urea Nitrogen 31 H 7-18 MG/DL Creatinine 1.34 H 0.60-1.30 MG/DL Estimat Glomerular Filtration Rate 53 BUN/Creatinine Ratio 23 Glucose Level 124 H 70-105 MG/DL Calcium Level 9.5 8.5-10.1 MG/DL Corrected Calcium 9.1 8.5-10.1 MG/DL Magnesium Level 2.3 1.6-2.4 MG/DL Total Bilirubin 0.8 0.1-1.0 MG/DL Aspartate Amino Transf (AST/SGOT) 28 5-34 U/L Alanine Aminotransferase (ALT/SGPT) 32 0-55 U/L Alkaline Phosphatase 76 40-136 U/L Troponin I < 0.028 < 0.028 <0.028 NG/ML B-Type Natriuretic Peptide 79.4 <100.0 PG/ML Total Protein 7.6 6.4-8.2 GM/DL Albumin 4.5 3.2-4.5 GM/DL Lipase 48 8-78 U/L Influenza Type A (RT-PCR) Not Detected Not Detecte Influenza Type B (RT-PCR) Not Detected Not Detecte SARS-CoV-2 RNA (RT-PCR) Not Detected Not Detecte My Orders Orders - JAKE HARRIS MD Ekg Tracing (10/23/22 10:35) Cbc With Automated Diff (10/23/22 10:47) Magnesium (10/23/22 10:47) Chest 1 View, Ap/Pa Only (10/23/22 10:47) Comprehensive Metabolic Panel (10/23/22 10:47) Protime With Inr (10/23/22 10:47) Partial Thromboplastin Time (10/23/22 10:47) O2 (10/23/22 10:47) Monitor-Rhythm Ecg Trace Only (10/23/22 10:47) Ed Iv/Invasive Line Start (10/23/22 10:47) Lipase (10/23/22 10:47) Bnp Nicholas (10/23/22 10:47) Troponin I Andrea (10/23/22 10:47) Aspirin Chewable Tablet (Aspirin Chewabl (10/23/22 11:00) Covid 19 Inhouse Test (10/23/22 10:51) Influenza A And B By Pcr (10/23/22 10:51) Troponin I Andrea (10/23/22 11:45) Medications Given in ED Current Medications Medications Dose Ordered Sig/Angy Route Start Time Stop Time Status Last Admin Dose Admin Aspirin 324 mg ONCE ONCE PO 10/23/22 11:00 10/23/22 11:01 DC 10/23/22 10:53 324 MG Vital Signs/I&O 10/23/22 10:35 Temp 37.0 Pulse 79 Resp 18 B/P (MAP) 157/86 (109) Pulse Ox 96 Blood Pressure Mean: 109 Progress Progress Note : Progress Note 82-year-old male with above history coming in due to chest pain that occurred yesterday for a couple of minutes. ABCs were intact and vitals were stable on presentation. Physical exam reassuring, he is smiling, pleasant, well- appearing. EKG with no acute ischemic changes on my interpretation. Chest x- ray ordered and interpreted by me showing no obvious pneumothorax, no other significant abnormalities. An IV was placed and basic labs were obtained including cardiac biomarkers. His creatinine is at his baseline, white blood cell count normal, troponin negative. Will do a repeat troponin, however it is very reassuring given the pain was yesterday that it is negative. I did contact Dr. Ovalle as well and discussed the case, he will recommend following up sooner with him as an outpatient, especially given he has not had any pain all today. In regards to his general weakness he is experiencing, objectively he has no weakness and is at his baseline. Otherwise, the patient has no clinical signs of a DVT, is not short of breath, not tachycardic, oxygen saturation 97% on room air, and I think a PE is very unlikely. Clinically not consistent with an aortic dissection given it was a few minutes of pain and he is pain-free since then. I believe the patient is stable for discharge with outpatient follow-up. He was sent home with strict return precautions. Initial ECG Impression Date: Oct 23, 2022 Initial ECG Impression Time: 10:36 Initial ECG Rate: 84 Initial ECG Rhythm: Normal Sinus Comment Narrow QRS, normal axis, no significant ST changes or T wave abnormality Diagnostic Imaging Diagonstic Imaging: Xray (chest) Comments NAME: [facility] REC#: [id number] PT STATUS: REG ER : 1940 PHYSICIAN: JAKE HARRIS MD ADMIT DATE: 10/23/22/ER Draft Date of Exam:10/23/22 CHEST 1 VIEW, AP/PA ONLY INDICATION: Chest pain rated 7 out of 10 with relief from sublingual nitroglycerin Portable chest 10:48 AM Heart and mediastinum are normal. Lungs are clear. There are no effusions or pneumothoraces. IMPRESSION: Negative chest Dictated on workstation # [id number] Dict: 10/23/22 1107 Trans: 10/23/22 1111 COUNT INCLUDES THE [facility] [id number] Interpreted by: TOY MONTEMAYOR MD Electronically signed by: Departure Impression Primary Impression: Chest pain Qualified Codes: R07.2 - Precordial pain Disposition: 01 HOME, SELF-CARE Condition: Stable Departure-Patient Inst. Decision time for Depature: 12:20 Referrals: RYAN LEWIS MD (PCP/Family) Primary Care Physician Patient Instructions: Chest Pain, Adult ED Add. Discharge Instructions: Your lab work and EKG were reassuring today. It does not appear like you had a heart attack yesterday and we discussed the case with Dr. Ovalle, he wants you to follow-up with him sooner. Please call his office to change her appointment to be sooner. If chest pain worsens or becomes more persistent then of course we want you to come back to the ER. JAKE HARRIS MD Oct 23, 2022 10:51
[2022-10-23 10:57] LABS: BASOPHILS % (AUTO) 0 % (0-10); EOSINOPHILS % (AUTO) 0 % (0-10); HEMATOCRIT 43 % (40-54); HEMOGLOBIN 14.6 g/dL (13.3-17.7); LYMPHOCYTES % (AUTO) 18 % (12-44); MEAN CORPUSCULAR HEMOGLOBIN 32 pg (25-34); MEAN CORPUSCULAR HGB CONC 34 g/dL (32-36); MEAN CORPUSCULAR VOLUME 96 fL (80-99); MEAN PLATELET VOLUME 9.4 fL (9.0-12.2); MONOCYTES # (AUTO) 0.7 10^3/uL (0.0-1.0); MONOCYTES % (AUTO) 7 % (0-12); NEUTROPHILS % (AUTO) 74 % (42-75); PLATELET COUNT 316 10^3/uL (130-400); WHITE BLOOD COUNT 10.8 10^3/uL (4.3-11.0)
[2022-10-23] MEDS ORDERED: ASPIRIN 81 MG CHEWABLE TABLET PO ONE (11:00)
[2022-10-23 11:03] LABS: ALBUMIN 4.5 GM/DL (3.2-4.5)
[2022-10-23 11:04] LABS: CHLORIDE 106 MMOL/L (98-107); POTASSIUM 4.1 MMOL/L (3.6-5.0); SODIUM 138 MMOL/L (135-145)
[2022-10-23 11:05] LABS: CALCIUM 9.5 MG/DL (8.5-10.1)
[2022-10-23 11:06] LABS: GLUCOSE 124 MG/DL (70-105); TOTAL PROTEIN 7.6 GM/DL (6.4-8.2)
[2022-10-23 11:07] LABS: CARBON DIOXIDE 21 MMOL/L (21-32)
[2022-10-23 11:08] LABS: BILIRUBIN,TOTAL 0.8 MG/DL (0.1-1.0)
[2022-10-23 11:09] LABS: ALKALINE PHOSPHATASE 76 U/L (40-136); CREATININE SERUM 1.34 MG/DL (0.60-1.30); GFR ESTIMATED 53
[2022-10-23 11:10] LABS: BUN/CREATININE RATIO 23; INR 0.9 (0.8-1.4); PROTHROMBIN TIME PATIENT 12.7 SEC (12.2-14.7)
[2022-10-23 11:12] LABS: ALANINE AMINOTRANSFERASE 32 U/L (0-55); MAGNESIUM 2.3 MG/DL (1.6-2.4)
--- NOTE | 2022-10-23 11:12 | Diagnostic Imaging Report ---
INDICATION: Chest pain rated 7 out of 10 with relief from sublingual nitroglycerin Portable chest 10:48 AM Heart and mediastinum are normal. Lungs are clear. There are no effusions or pneumothoraces. IMPRESSION: Negative chest Dictated by: Dictated on workstation # [id number]
[2022-10-23 11:13] LABS: LIPASE 48 U/L (8-78)
[2022-10-23 12:34] VITALS: BP 125/64
== END 2022-10-23 12:34 | disposition home or self-care (01) ==
LOC: EDUNIT# 10:30 → ER 10:32
DX: R07.9 Chest pain, unspecified (principal); I10 Essential (primary) hypertension; G47.30 Sleep apnea, unspecified; Z99.89 Dependence on other enabling machines and devices; Z86.79 Personal history of other diseases of the circulatory system; Z95.5 Presence of coronary angioplasty implant and graft; Z20.822 Contact with and (suspected) exposure to COVID-19
CPT/HCPCS: 36415; 71045; 80053; 83690; 83735; 83880; 84484; 85025; 85610; 85730; 87636; 93005; 93041

== ENCOUNTER 2022-11-02 07:09 | Emergency (ER) | payer MEDICARE ==
[~2022-11-02] VITALS: Ht 162 cm; Wt 102.0 kg
--- NOTE | 2022-11-02 07:25 | ED General ---
General Stated Complaint: HEADACHE X5DAYS AND HIGH BP History of Present Illness Date Seen by Provider: Nov 02, 2022 Time Seen by Provider: 07:20 Initial Comments 82-year-old male presents with a headache this been going on and off for like 5 days. Patient was concerned because he has had a blood clot causing the headache in his brain in the past. Patient headache is mainly located in the posterior left neck radiates up into his head. Gets worse with movement of his head and palpation of his cervical spine. Patient is also concerned that his "blood pressures been high" patient brought in a listing that was reviewed and shows 2 blood pressures that were in the 160 systolic and 1 in the 190s however the rest of his blood pressures were below 150 systolic for the last week. Patient denies any nausea, vomiting, photophobia. He does report that this morning when he got up he had a little bit of tingling in his right hand and arm. He also reports that he is seeing a pain specialist for neck problems in the past and had to get a shot. Allergies and Home Medications Allergies Coded Allergies: Penicillins (Verified Allergy, Unknown, 06/20/16) ezetimibe (Verified Allergy, Unknown, 06/20/16) iodine (Verified Allergy, Unknown, 06/20/16) simvastatin (Verified Allergy, Unknown, 06/20/16) Patient Home Medication List Home Medication List Reviewed: Yes Allopurinol (Zyloprim) 300 Mg Tab, 300 MG PO DAILY, (Reported) Entered as Reported by: ABILIO YBARRA on 08/08/09 0806 Aspirin (Aspirin EC) 81 Mg Tablet.dr, 81 MG PO DAILY Prescribed by: EVANGELIST AMAYA on 04/13/20 06 Clopidogrel Bisulfate (Clopidogrel) 75 Mg Tablet, 75 MG PO DAILY Prescribed by: EVANGELIST AMAYA on 04/13/20 0632 Doxycycline Monohydrate (Doxycycline Monohydrate) 100 Mg Tablet, 100 MG PO BID Prescribed by: KELY WELDON on 08/24/21 1216 Losartan Potassium (Losartan Potassium) 50 Mg Tablet, 50 MG PO DAILY Prescribed by: EVANGELIST AMAYA on 04/13/20 0632 Metoprolol Succinate (Metoprolol Succinate) 25 Mg Tab.er.24h, 25 MG PO DAILY PRN, (Reported) Entered as Reported by: SANFORD BUTLER on 09/09/17 1652 Multivits,Ca,Min/Iron/FA/Lycop (Centrum Men's Tablet) 1 Each Tablet, 1 TAB PO DAILY, (Reported) Entered as Reported by: PAMELA TA on 04/17/16 1247 Pantoprazole Sodium (Pantoprazole Sodium) 20 Mg Tablet.dr, 20 MG PO DAILY Prescribed by: EVANGELIST AMAYA on 04/13/20 0632 Promethazine HCl (Promethazine Tablet) 25 Mg Tablet, 25 MG PO Q6H PRN for MARY SEA/VOMITING Prescribed by: JAKE HARRIS on 08/17/21 0850 Promethazine HCl/Codeine (Promethazine-Codeine Solution) 6.25 Mg-10 Mg/5 Ml Syrup, 5 ML PO Q8H PRN for cough Prescribed by: JAKE HARRIS on 08/17/21 1453 Review of Systems Review of Systems Constitutional: No chills, No dizziness, No fever EENTM: no symptoms reported; No ear pain, No eye pain Respiratory: No cough, No short of breath Cardiovascular: No chest pain, No palpitations Gastrointestinal: No abdominal pain, No nausea, No vomiting Musculoskeletal: see HPI Skin: no symptoms reported Psychiatric/Neurological: No Symptoms Reported Past Hcuzazc-Cqeqzc-Wogear Hx Immunizations Up To Date First/Initial COVID19 Vaccinat: UNKNOWN Second COVID19 Vaccination Albert: UNKNOWN Third COVID19 Vaccination Date: UNKNOWN Seasonal Allergies Seasonal Allergies: No Past Medical History Surgery/Hospitalization HX: STENTS Surgeries: Yes (l hip replacement, bilat rotator cuf repair) Cardiac, Coronary Stent, Gallbladder, Orthopedic, Tonsillectomy Respiratory: Yes Sleep Apnea Currently Using CPAP: Yes Cardiac: Yes (TAKES BP MEDICATIONS "WHEN HE NEEDS TO" ) Chronic Edema/Swelling, Coronary Artery Disease, High Cholesterol, Hypertension Neurological: No Reproductive Disorders: No Sexually Transmitted Disease: No HIV/AIDS: No Genitourinary: Yes Kidney Stones Gastrointestinal: Yes (S/P JUHI) Gastroesophageal Reflux, Polyps, Gall Bladder Disease, Irritable Bowel Musculoskeletal: Yes (CHRONIC NECK/BACK AND BILATERAL KNEE PAIN ) Arthritis, Chronic Back Pain, Gout Endocrine: No HEENT: Yes (UVULECTOMY) Tonsilitis Loss of Vision: Bilateral Hearing Impairment: Denies Cancer: No Psychosocial: No Integumentary: No Blood Disorders: No Adverse Reaction/Blood Tranf: No (N/A) Family Medical History No Pertinent Family Hx Physical Exam Vital Signs Vital Signs - First Documented 11/02/22 07:14 Temp 36.6 Pulse 90 Resp 16 B/P (MAP) 158/87 (110) Pulse Ox 96 Capillary Refill : Height, Weight, BMI Height: 5'6.00" Weight: 226lbs. 0.0oz. 102.594856ii; 38.00 BMI Method:Stated General Appearance: No Apparent Distress, WD/WN HEENT: PERRL/EOMI Neck: Full Range of Motion, Supple, Tender Lateral Respiratory: Lungs Clear, Normal Breath Sounds Cardiovascular: Regular Rate, Rhythm, No Edema Gastrointestinal: Non Tender, Soft Neurologic/Psychiatric: Alert, Oriented x3, No Motor/Sensory Deficits, Normal Mood/Affect, shank boner II-XII Norm as Tested Skin: Normal Color, Warm/Dry Progress/Results/Core Measures Suspected Sepsis SIRS Temperature: Pulse: Respiratory Rate: Blood Pressure / Mean: Results/Orders My Orders Orders - MAURISIO CHILD DO Ct Head Wo (11/02/22 07:29) Ketorolac Injection (Ketorolac Injection (11/02/22 07:29) Orphenadrine Inj (Ed Only) (Norflex Inje (11/02/22 07:29) Vital Signs/I&O 11/02/22 11/02/22 07:14 08:33 Temp 36.6 36.6 Pulse 90 84 Resp 16 16 B/P (MAP) 158/87 (110) 125/75 Pulse Ox 96 97 Capillary Refill : Progress Note : Progress Note And CT was ordered reviewed with initial interpretation by me and negative with final interpretation per radiology report. Patient's symptoms are consistent with a tension headache due to likely cervical strain or other cervical issue. Symptoms did improve following Toradol and Norflex. He has a longstanding history of cervical issues. Recommend he follows up with his primary care provider for further outpatient evaluation. Also discussed with him supportive care including topical medications. He is stable and discharged home Diagnostic Imaging Diagonstic Imaging: CT Plain Films/CT/US/NM/MRI: head Comments Date of Exam:11/02/22 CT HEAD WO PROCEDURE: CT head without contrast. TECHNIQUE: Multiple contiguous axial images were obtained through the brain without the use of intravenous contrast. Auto Exposure Controls were utilized during the CT exam to meet ALARA standards for radiation dose reduction. INDICATION: New head pain COMPARISON: MRI from 01/05/2018 FINDINGS: The ventricles and cortical sulci are prominent, there is no midline shift or mass effect. No acute intracranial hemorrhage is seen. There is no CT evidence of acute territorial ischemia. There are ill-defined areas of hypodensity in the white matter, likely from chronic microvascular disease. The calvarium appears intact. Visualized paranasal sinuses are clear. IMPRESSION: 1. No acute intracranial hemorrhage or CT evidence of acute territorial ischemia. 2. Generalized parenchymal volume loss and findings of chronic microvascular disease. Departure Impression Primary Impression: Tension type headache Qualified Codes: G44.219 - Episodic tension-type headache, not intractable Disposition: 01 HOME, SELF-CARE Condition: Stable Departure-Patient Inst. Referrals: RYAN LEWIS MD (PCP/Family) Primary Care Physician Patient Instructions: Tension Headache (DC) Add. Discharge Instructions: Gentle stretching of your neck, 4% topical lidocaine with menthol cream or gel to posterior neck. Please follow-up with your primary care provider for recheck of your symptoms. Warm moist heat to posterior neck MAURISIO CHILD DO Nov 02, 2022 07:25
[2022-11-02] MEDS ORDERED: ORPHENADRINE 60 MG/2 ML (NORFLEX) AMP (ED ONLY) IM STA (07:29)
[2022-11-02] MEDS ORDERED: KETOROLAC INJ 30 MG/ML VIAL IM STA (07:29)
--- NOTE | 2022-11-02 08:11 | Diagnostic Imaging Report ---
PROCEDURE: CT head without contrast. TECHNIQUE: Multiple contiguous axial images were obtained through the brain without the use of intravenous contrast. Auto Exposure Controls were utilized during the CT exam to meet ALARA standards for radiation dose reduction. INDICATION: New head pain COMPARISON: MRI from 01/05/2018 FINDINGS: The ventricles and cortical sulci are prominent, there is no midline shift or mass effect. No acute intracranial hemorrhage is seen. There is no CT evidence of acute territorial ischemia. There are ill-defined areas of hypodensity in the white matter, likely from chronic microvascular disease. The calvarium appears intact. Visualized paranasal sinuses are clear. IMPRESSION: 1. No acute intracranial hemorrhage or CT evidence of acute territorial ischemia. 2. Generalized parenchymal volume loss and findings of chronic microvascular disease. Dictated by: Dictated on workstation # [id number]
[2022-11-02 08:33] VITALS: BP 125/75
== END 2022-11-02 08:33 | disposition home or self-care (01) ==
LOC: EDUNIT# 07:09 → ER 07:10
DX: G44.209 Tension-type headache, unspecified, not intractable (principal); G47.30 Sleep apnea, unspecified; Z99.89 Dependence on other enabling machines and devices
CPT/HCPCS: 70450

== ENCOUNTER 2023-01-25 08:45 | Emergency (ER) | payer MEDICARE ==
--- NOTE | 2023-01-25 09:23 | ED General ---
General Chief Complaint: Abdominal/GI Problems Stated Complaint: ABD PAIN/NAUSEA Nursing Triage Note: PT AMB TO RM 6 WITH COMPLAINT OF ABD PAIN. STATES HE HAS A PROTRUSION AT HIS BELLY BUTTON THAT HE FEELS IS CAUSING HIM PAIN. Source of Information: Patient Exam Limitations: No Limitations History of Present Illness Date Seen by Provider: Jan 25, 2023 Time Seen by Provider: 09:00 Initial Comments Here with report of concerns of abdominal hernia that may be causing problems. States he had gallbladder surgery many years ago and now has a little outpouching at the umbilicus. States that sometimes causes him pain but gets soft anytime he lays down and has not turned colors. Denies nausea or vomiting. He thought this may be the cause of why he is waking up each night early in the morning with feeling shaky and believing that his blood sugars off. He feels some rumbling in his stomach. He usually has something to drink and things get better. States that he has some feeling in the center of his chest like palpitations and discomfort that is vague at the same time. Has history of high blood pressure and cardiovascular disease and has had cardiac cath previously which they are medically managing his issue. He was due to get stress test a few days ago but could not because he could not complete fast due to waking up in the middle the night and feeling shaky. He has not had his medicine this morning. States normally his blood pressure is fine in the morning but sometimes he has to take his losartan. He has not taken that today and does arrive with high blood pressure. Does have long-term swelling of his legs. He does intermittently take furosemide but has not had it recently. Overall just concerned. Denies fever, chills, nausea, vomiting or diarrhea. Denies current chest pain or discomfort. Timing/Duration: 1 Week, Gone Now, Intermittent Severity: Mild, Moderate Associated Systoms: No Shortness of Air, No Weakness Allergies and Home Medications Allergies Coded Allergies: Penicillins (Verified Allergy, Unknown, 06/20/16) ezetimibe (Verified Allergy, Unknown, 06/20/16) iodine (Verified Allergy, Unknown, 06/20/16) simvastatin (Verified Allergy, Unknown, 06/20/16) Patient Home Medication List Home Medication List Reviewed: Yes Allopurinol (Zyloprim) 300 Mg Tab, 300 MG PO DAILY, (Reported) Entered as Reported by: ABILIO YBARRA on 08/08/09 0806 Aspirin (Aspirin EC) 81 Mg Tablet.dr, 81 MG PO DAILY Prescribed by: EVANGELIST OVALLE on 04/13/20 0632 Clopidogrel Bisulfate (Clopidogrel) 75 Mg Tablet, 75 MG PO DAILY Prescribed by: EVANGELIST OVALLE on 04/13/20 0632 Doxycycline Monohydrate (Doxycycline Monohydrate) 100 Mg Tablet, 100 MG PO BID Prescribed by: KELY WELDON on 08/24/21 1216 Losartan Potassium (Losartan Potassium) 50 Mg Tablet, 50 MG PO DAILY Prescribed by: EVANGELIST OVALLE on 04/13/20 0632 Metoprolol Succinate (Metoprolol Succinate) 25 Mg Tab.er.24h, 25 MG PO DAILY PRN, (Reported) Entered as Reported by: SANFORD BUTLER on 09/09/17 1652 Multivits,Ca,Min/Iron/FA/Lycop (Centrum Men's Tablet) 1 Each Tablet, 1 TAB PO DAILY, (Reported) Entered as Reported by: PAMELA TA on 04/17/16 1247 Pantoprazole Sodium (Pantoprazole Sodium) 20 Mg Tablet.dr, 20 MG PO DAILY Prescribed by: EVANGELIST OVALLE on 04/13/20 0632 Promethazine HCl (Promethazine Tablet) 25 Mg Tablet, 25 MG PO Q6H PRN for NAUSEA/VOMITING Prescribed by: JAKE HARRIS on 08/17/21 0850 Promethazine HCl/Codeine (Promethazine-Codeine Solution) 6.25 Mg-10 Mg/5 Ml Syrup, 5 ML PO Q8H PRN for cough Prescribed by: JAKE HARRIS on 08/17/21 1453 Review of Systems Review of Systems Constitutional: see HPI; No chills, No fever EENTM: No nose congestion, No throat pain Respiratory: No cough, No short of breath Cardiovascular: see HPI, edema, palpitations Gastrointestinal: see HPI; No nausea, No vomiting Genitourinary: no symptoms reported Musculoskeletal: No back pain Skin: no symptoms reported Psychiatric/Neurological: Anxiety Hematologic/Lymphatic: No Symptoms Reported Past Ozxcdrd-Abfaxh-Axynee Hx Patient Social History Tobacco Use?: No Use of E-Cig and/or Vaping dev: No Substance use?: No Alcohol Use?: Yes Alcohol Frequency: Once in a while Pt feels they are or have been: No Immunizations Up To Date First/Initial COVID19 Vaccinat: UNKNOWN Second COVID19 Vaccination Albert: UNKNOWN Third COVID19 Vaccination Date: UNKNOWN Seasonal Allergies Seasonal Allergies: No Past Medical History Surgery/Hospitalization HX: STENTS, l hip replacement, gallbladder, tonsilectomy, r/l rotator cuff, carpal tunnel Surgeries: Yes (l hip replacement, bilat rotator cuf repair) Cardiac, Coronary Stent, Gallbladder, Orthopedic, Tonsillectomy Respiratory: Yes Sleep Apnea Currently Using CPAP: Yes Cardiac: Yes (TAKES BP MEDICATIONS "WHEN HE NEEDS TO" ) Chronic Edema/Swelling, Coronary Artery Disease, High Cholesterol, Hypertension Neurological: No Reproductive Disorders: No Sexually Transmitted Disease: No HIV/AIDS: No Genitourinary: Yes Kidney Stones Gastrointestinal: Yes (S/P JUHI) Gastroesophageal Reflux, Polyps, Gall Bladder Disease, Irritable Bowel Musculoskeletal: Yes (CHRONIC NECK/BACK AND BILATERAL KNEE PAIN ) Arthritis, Chronic Back Pain, Gout Endocrine: No HEENT: Yes (UVULECTOMY) Tonsilitis Loss of Vision: Bilateral Hearing Impairment: Denies Cancer: No Psychosocial: No Integumentary: No Blood Disorders: No Adverse Reaction/Blood Tranf: No (N/A) Family Medical History Reviewed Nursing Family Hx No Pertinent Family Hx Physical Exam Vital Signs Vital Signs - First Documented 01/25/23 08:56 Temp 36.8 Pulse 84 Resp 16 B/P (MAP) 187/104 (131) Pulse Ox 95 O2 Delivery Room Air Capillary Refill : Height, Weight, BMI Height: 5'6.00" Weight: 226lbs. 0.0oz. 102.624860zq; 38.00 BMI Method:Stated General Appearance: No Apparent Distress, WD/WN, Obese HEENT: PERRL/EOMI, Pharynx Normal Neck: Non Tender, Supple Respiratory: Lungs Clear, Normal Breath Sounds Cardiovascular: Regular Rate, Rhythm, No Murmur Gastrointestinal: Normal Bowel Sounds, Non Tender, Soft, Other (Small 3 x 3 centimeter reducible hernia superior area of the umbilicus) Extremity: Normal Range of Motion, Non Tender Neurologic/Psychiatric: Alert, Oriented x3 Skin: Normal Color, Warm/Dry Progress/Results/Core Measures Suspected Sepsis SIRS Temperature: Pulse: 84 Respiratory Rate: 16 Laboratory Tests 01/25/23 09:42: White Blood Count 6.5 Blood Pressure 187 /104 Mean: 131 Laboratory Tests 01/25/23 09:42: Creatinine 1.26, Platelet Count 258, Total Bilirubin 1.0 Results/Orders Lab Results Laboratory Tests Test 01/25/23 09:42 Range/Units White Blood Count 6.5 4.3-11.0 10^3/uL Red Blood Count 4.04 L 4.30-5.52 10^6/uL Hemoglobin 12.9 L 13.3-17.7 g/dL Hematocrit 38 L 40-54 % Mean Corpuscular Volume 93 80-99 fL Mean Corpuscular Hemoglobin 32 25-34 pg Mean Corpuscular Hemoglobin Concent 34 32-36 g/dL Red Cell Distribution Width 12.7 10.0-14.5 % Platelet Count 258 130-400 10^3/uL Mean Platelet Volume 9.3 9.0-12.2 fL Immature Granulocyte % (Auto) 0 % Neutrophils (%) (Auto) 71 42-75 % Lymphocytes (%) (Auto) 19 12-44 % Monocytes (%) (Auto) 9 0-12 % Eosinophils (%) (Auto) 1 0-10 % Basophils (%) (Auto) 0 0-10 % Neutrophils # (Auto) 4.6 1.8-7.8 10^3/uL Lymphocytes # (Auto) 1.2 1.0-4.0 10^3/uL Monocytes # (Auto) 0.6 0.0-1.0 10^3/uL Eosinophils # (Auto) 0.1 0.0-0.3 10^3/uL Basophils # (Auto) 0.0 0.0-0.1 10^3/uL Immature Granulocyte # (Auto) 0.0 0.0-0.1 10^3/uL Sodium Level 135 135-145 MMOL/L Potassium Level 4.1 3.6-5.0 MMOL/L Chloride Level 105 98-107 MMOL/L Carbon Dioxide Level 21 21-32 MMOL/L Anion Gap 9 5-14 MMOL/L Blood Urea Nitrogen 27 H 7-18 MG/DL Creatinine 1.26 0.60-1.30 MG/DL Estimat Glomerular Filtration Rate 57 BUN/Creatinine Ratio 21 Glucose Level 107 H 70-105 MG/DL Calcium Level 9.3 8.5-10.1 MG/DL Corrected Calcium 9.3 8.5-10.1 MG/DL Total Bilirubin 1.0 0.1-1.0 MG/DL Aspartate Amino Transf (AST/SGOT) 22 5-34 U/L Alanine Aminotransferase (ALT/SGPT) 19 0-55 U/L Alkaline Phosphatase 70 40-136 U/L Troponin I < 0.028 <0.028 NG/ML B-Type Natriuretic Peptide 55.2 <100.0 PG/ML Total Protein 6.9 6.4-8.2 GM/DL Albumin 4.0 3.2-4.5 GM/DL TSH [place] Testing 2.18 0.35-4.94 UIU/ML My Orders Orders - TOY YEUNG MD Ed Iv/Invasive Line Start (01/25/23 09:12) Ekg Tracing (01/25/23 09:12) Monitor-Rhythm Ecg Trace Only (01/25/23 09:12) Chest 1 View, Ap/Pa Only (01/25/23 09:12) Bnp Andrea (01/25/23 09:12) Cbc And Automated Diff (01/25/23 09:12) Comprehensive Metabolic Panel (01/25/23 09:12) Thyroid Analyzer (01/25/23 09:12) Troponin I Andrea (01/25/23 09:12) Vital Signs/I&O 01/25/23 08:56 Temp 36.8 Pulse 84 Resp 16 B/P (MAP) 187/104 (131) Pulse Ox 95 O2 Delivery Room Air Capillary Refill : Blood Pressure Mean: 131 Progress Note : Progress Note Seen and evaluated. Given patient's complaint and vague chest symptoms, we will go ahead and get IV and check basic labs including CBC, CMP, troponin and BNP. Check thyroid as patient is complaining of palpitations and this could be a cause. We will get EKG and chest x-ray as well. Patient has his losartan with him and we will have him go ahead and take a dose of his 50 mg losartan that he would normally take in the morning for blood pressure that is 180/100 currently. Patient denies chest pain. He otherwise reports taking his medications as directed. Monitor patient. Differential diagnosis includes cardiac event, hypertension, reflux disease, thyroid dysfunction 1016: Chest x-ray reviewed by me and shows no obvious infiltrate or other abnormality on my interpretation. EKG reviewed. 1034: CBC grossly normal and sufferer slightly decreased hemoglobin. CMP is grossly normal with normal BNP, troponin and thyroid study. Blood pressure has improved to 143/92. No indication for admission. All findings discussed with patient. Discharged home with return precautions. Patient verbalized understanding instructions and agreement with plan. No indication for CT scan or further imaging. We will initiate outpatient famotidine for a few days and he will follow-up with Dr. Giron on the as scheduled. I will send a copy of the chart to him. ECG Initial ECG Impression Date: Jan 25, 2023 Initial ECG Impression Time: 09:42 Initial ECG Rate: 68 Initial ECG Rhythm: Normal Sinus Initial ECG Impression: Normal Comment Sinus rhythm with normal axis. No evidence of ST elevation VA. Interpreted by me. Diagnostic Imaging Diagonstic Imaging: Xray Plain Films/CT/US/NM/MRI: chest Comments [facility], [place] NAME: [facility] REC#: [id number] PT STATUS: REG ER : 1940 PHYSICIAN: TOY YEUNG MD ADMIT DATE: 01/25/23/ER Signed Date of Exam:01/25/23 CHEST 1 VIEW, AP/PA ONLY CHEST 1 VIEW, AP/PA ONLY INDICATION: HTN. COMPARISON: Chest radiograph 10/23/2022. FINDINGS: Lungs: Low lung volume. No focal consolidation. Stable pulmonary vasculature. Pleura: No pleural effusion or pneumothorax. Heart and Mediastinum: Cardiomediastinal silhouette and great vessels of the thorax are stable. Osseous Structures and Soft Tissues: No acute osseous abnormality. Normal soft tissues. IMPRESSION: No acute cardiopulmonary process. Dictated by: Dictated on workstation # [id number] Dict: 01/25/23948 Trans: 01/25/23948 [facility] – [place], [place] [id number] Interpreted by: MAYRA PRETTY DO Electronically signed by: MAYRA PRETTY DO 01/25/2349 Departure Impression Primary Impression: Abdominal pain Qualified Codes: R10.13 - Epigastric pain Additional Impression: Chest discomfort Disposition: 01 HOME, SELF-CARE Condition: Improved Departure-Patient Inst. Decision time for Depature: 10:46 Referrals: RYAN GIRON MD (PCP/Family) Primary Care Physician Patient Instructions: Chest Pain, Adult ED, Severe Abdominal Pain, Adult (DC) Add. Discharge Instructions: All discharge instructions reviewed with patient and/or family. Voiced understanding. You may initiate Pepcid or the generic famotidine 20 mg 1 tablet at nighttime and do this for the next several days and see if that helps. Keep appointment with Dr. Giron as scheduled. Call and schedule appoint with Dr. Ovalle. Return for worse pain, fever, vomiting, weakness, breathing problems or other concerns as needed. Copy Copies To 1: RYAN GIRON MD, TIMOTHY D MD Jan 25, 2023 09:23
--- NOTE | 2023-01-25 09:51 | Diagnostic Imaging Report ---
CHEST 1 VIEW, AP/PA ONLY INDICATION: HTN. COMPARISON: Chest radiograph 10/23/2022. FINDINGS: Lungs: Low lung volume. No focal consolidation. Stable pulmonary vasculature. Pleura: No pleural effusion or pneumothorax. Heart and Mediastinum: Cardiomediastinal silhouette and great vessels of the thorax are stable. Osseous Structures and Soft Tissues: No acute osseous abnormality. Normal soft tissues. IMPRESSION: No acute cardiopulmonary process. Dictated by: Dictated on workstation # [id number]
[2023-01-25 09:57] LABS: CHLORIDE 105 MMOL/L (98-107); POTASSIUM 4.1 MMOL/L (3.6-5.0); SODIUM 135 MMOL/L (135-145)
[2023-01-25 09:59] LABS: CALCIUM 9.3 MG/DL (8.5-10.1)
[2023-01-25 10:00] LABS: GLUCOSE 107 MG/DL (70-105); TOTAL PROTEIN 6.9 GM/DL (6.4-8.2)
[2023-01-25 10:01] LABS: CARBON DIOXIDE 21 MMOL/L (21-32)
[2023-01-25 10:02] LABS: BASOPHILS % (AUTO) 0 % (0-10); EOSINOPHILS # (AUTO) 0.1 10^3/uL (0.0-0.3); EOSINOPHILS % (AUTO) 1 % (0-10); HEMATOCRIT 38 % (40-54); HEMOGLOBIN 12.9 g/dL (13.3-17.7); LYMPHOCYTES # (AUTO) 1.2 10^3/uL (1.0-4.0); LYMPHOCYTES % (AUTO) 19 % (12-44); MEAN CORPUSCULAR HEMOGLOBIN 32 pg (25-34); MEAN CORPUSCULAR HGB CONC 34 g/dL (32-36); MEAN CORPUSCULAR VOLUME 93 fL (80-99); MEAN PLATELET VOLUME 9.3 fL (9.0-12.2); MONOCYTES # (AUTO) 0.6 10^3/uL (0.0-1.0); MONOCYTES % (AUTO) 9 % (0-12); NEUTROPHILS # (AUTO) 4.6 10^3/uL (1.8-7.8); NEUTROPHILS % (AUTO) 71 % (42-75); PLATELET COUNT 258 10^3/uL (130-400); WHITE BLOOD COUNT 6.5 10^3/uL (4.3-11.0)
[2023-01-25 10:03] LABS: ALKALINE PHOSPHATASE 70 U/L (40-136); CREATININE SERUM 1.26 MG/DL (0.60-1.30); GFR ESTIMATED 57
[2023-01-25 10:04] LABS: BUN/CREATININE RATIO 21
[2023-01-25 10:06] LABS: ALANINE AMINOTRANSFERASE 19 U/L (0-55)
[2023-01-25 10:26] LABS: TSH (THYROID ANALYZER) 2.18 UIU/ML (0.35-4.94)
[2023-01-25 11:10] VITALS: BP 110/69
== END 2023-01-25 11:00 | disposition home or self-care (01) ==
LOC: EDUNIT# 08:45 → ER 08:47
DX: K42.9 Umbilical hernia without obstruction or gangrene (principal); R07.89 Other chest pain; G47.30 Sleep apnea, unspecified; Z99.89 Dependence on other enabling machines and devices; Z98.890 Other specified postprocedural states
CPT/HCPCS: 36415; 71045; 80053; 83880; 84443; 84484; 85025; 93005